=== PATIENT | male | born 1960 | race Caucasian/White ===

== ENCOUNTER → 2019-04-24 11:48 | Outpatient (CLI) | payer SELFPAY ==
[2019-04-24 16:05] LABS: ALB/GLOB Ratio 1.1 RATIO (0.9-2.4); AST(SGOT) 20 U/L (15-37); Alanine Aminotransfer ALT/SGPT 51 U/L (16-61); Albumin, Serum 3.9 g/dL (3.2-5.0); Alkaline Phosphatase 67 U/L (45-117); Anion Gap 7 (5-15); BUN 18 mg/dL (7-18); BUN/Creat Ratio 16.2 RATIO (10-20); Calcium,Total 8.6 mg/dL (8.5-10.1); Chloride 99 mmol/L (98-107); Creatinine, Serum 1.11 mg/dL (0.70-1.30); EST Glomerular Filtration Rate 73 mL/min (>60); Est Glom Filt Rate - Afr Amer 88 mL/min (>60); Globulin 3.4 g/dL (2.2-4.2); Glucose 439 mg/dL (74-106); Potassium 4.4 mmol/L (3.5-5.1); Protein, Total 7.3 g/dL (6.4-8.2); Sodium Level 132 mmol/L (136-145)
[2019-04-24 16:11] LABS: Hemoglobin A1c 12.6 % (4.2-6.3)
[2019-04-26 15:57] LABS: LDL, Direct 120295 89 mg/dL (0-99)
== END ==
PROVIDERS: PCP Internal Medicine; Visit Provider Family Medicine
DX: E11.9 Type 2 diabetes mellitus without complications (principal)
CPT/HCPCS: 36415; 80053; 83036; 83721

== ENCOUNTER → 2020-07-01 08:33 | Outpatient (CLI) | payer SELFPAY ==
[2020-07-01 10:15] LABS: Insulin 18.8 mU/L (2.6-37.6)
== END ==
PROVIDERS: PCP Family Medicine; Referring Provider Family Medicine; Visit Provider Family Medicine
DX: E11.65 Type 2 diabetes mellitus with hyperglycemia (principal)
CPT/HCPCS: 36415; 83525

== ENCOUNTER → 2020-08-15 17:22 | Outpatient (CLI) | payer SELFPAY | PROVIDERS: PCP Family Medicine; Referring Provider Family Medicine; Visit Provider Family Medicine | DX: L02.413 Cutaneous abscess of right upper limb (principal) | CPT/HCPCS: 87070; 87075; 87077; 87186; 87205 ==

== ENCOUNTER → 2021-12-24 | Outpatient (CLI) | payer SELFPAY | END | disposition home or self-care (01) | PROVIDERS: PCP Family Medicine; Visit Provider Family Medicine | DX: L02.414 Cutaneous abscess of left upper limb (principal) | CPT/HCPCS: 87070; 87077; 87186; 87205 ==

== ENCOUNTER → 2022-07-13 | Outpatient (CLI) | payer SELFPAY | END | disposition home or self-care (01) | PROVIDERS: PCP Family Medicine; Visit Provider Family Medicine | DX: L02.31 Cutaneous abscess of buttock (principal) | CPT/HCPCS: 87070; 87077; 87186; 87205 ==

== ENCOUNTER → 2024-10-02 | Outpatient (CLI) | payer MEDICARE, SELFPAY | END | disposition home or self-care (01) | LOC: LABSPEC 12:17 | PROVIDERS: PCP Family Medicine; Visit Provider Family Medicine | DX: L02.91 Cutaneous abscess, unspecified (principal) | CPT/HCPCS: 87070; 87075; 87077; 87186; 87205 ==

== ENCOUNTER 2024-10-29 09:00 | Outpatient (RCR) | payer MEDICARE, SELFPAY ==
[2024-10-22 10:06] VITALS: BP 140/96; PULSE 111; RESP 18; TEMP 36.6; BMI 34.9
--- NOTE | 2024-10-23 09:38 | WC ---
PHOTO 10/22/24 RIGHT SHOULDER
--- NOTE | 2024-10-23 11:08 | PCM.WC.HP ---
History of Present Illness Date of Service: 10/22/24 History of Wound: The patient is a 64-year-old male presenting with an abscess on the right upper back. Approximately 4 to 5 weeks ago, the patient noticed a small red pimple on the right upper back, which progressed into an abscess. The abscess was initially incised and drained by Dr. Lucero, but it continued to drain and required further intervention. The patient has a history of diabetes mellitus with a significantly elevated A1c of 12.6, indicating poor glycemic control. He has been prescribed a new injectable medication for diabetes management, which he plans to start soon. ROS: - Integumentary: Reports abscess on right upper back - Endocrine: Reports diabetes mellitus with elevated A1c Attestation: Documentation on this patient encounter was supported using ambient scribe technology/ voice AI technology. The patient consented to recording for the purpose of documenting the encounter. Provider reviewed content of the generated note prior to signature. [facility] Medical History Neuropathy Home Medications ?Medication ?Instructions ?Recorded ?Last Taken ?Type blood-glucose sensor (Dexcom G7 #3 ea 04/02/24 Unknown Rx Sensor device) glipizide 10 mg tablet 10 mg PO BID #60 tabs 04/02/24 Unknown Rx lisinopril 10 mg tablet 10 mg PO QDAY 04/02/24 Unknown History metformin 500 mg tablet,extended 1,000 mg (2 x 500 mg) PO BID #120 04/02/24 Unknown Rx release 24 hr tabs multivitamin with minerals-folic 1 tab PO ONCE 04/02/24 Unknown History acid 80 mcg chewable tablet (Centrum Adult 50 Plus) omega 9-gmz-rzs-fish oil 60 mg-90 1 cap PO QDAY 04/02/24 Unknown History mg-500 mg capsule (Fish Oil) pregabalin 300 mg capsule 300 mg PO BID 04/02/24 Unknown History simvastatin 20 mg tablet 20 mg PO QDAY 04/02/24 Unknown History sulfamethoxazole 800 1 tab PO Q12H 10/22/24 Unknown History mg-trimethoprim 160 mg tablet Allergy/AdvReac Type Severity Reaction Status Date / Time No Known Allergies Allergy Verified 04/02/24 14:02 Family History Father Diabetes Mother Myocardial infarction CVA (cerebral vascular accident) Surgical History H/O hernia repair History of appendectomy History of ear, nose, and throat (ENT) surgery Previous back surgery Social History Smoking Status: Never smoker alcohol intake: never substance use type: does not use what type of physical activity do you participate in: none Vital Signs Vital Signs Vital Signs: Weight Weight: 216 lb 3.175 oz Body Mass Index (BMI) 34.9 Physical Exam Narrative Right upper back with a swollen indurated with purulent drainage through her previous abscess I&D incision. There is definitely fluctuance and residual purulence with inflammatory rind/loculations Debridement Note Debridement Note Wound debrided: Right upper back abscess Laterality: Right Wound Grade/Stage: Abscess on the right upper back superficial to the muscle Type of Debridement: - (Incision and drainage with hemostat used to break up complex loculations) Anesthesia Used: - (20 cc of 1% lidocaine with 1-200,000 epinephrine) Depth: to muscle Percentage of wound debrided: 100 Instrument Used: #15 blade and - (Hemostat and scissors and forceps) Tissue Removed: Inflammatory rind from the abscess cavity as well as purulence Severity: Fat Layer Exposed Amount of bleeding with debridement: Moderate Bleeding Controlled with: Compression and gauze Patient tolerated procedure: Patient tolerated procedure well Debridement Free Text: 15 blade scalpel was used to make an incision longitudinally across the area of fluctuance over the 4 x 5 cm abscess cavity. The complex loculations were divided and excised as noted above. The wound was irrigated with copious amounts normal saline and Irrisept. It was packed with Irrisept soaked gauze. Post-Debridement Measurements and Additional Note: Post-Debridement Measurements/Treatment SUZI - Nurse 1 - General Ulcer Assessment Start: 10/22/24 10:02 Freq: Status: Active Protocol: SILAS Activity Type Activity Date Activity User E-sign Co-sign Detail Recorded Client Recorded Date Recorded By Document 10/22/24 10:06 THEO [id number] 10/22/24 10:18 DL 10/22/24 10:06 SUZI - Today's Visit Information Type of service Initial Visit Arrival Mode Ambulatory Transfer Assistance None Patient Identification Verified (Name & Yes ) Patient Requires Transmission-Based No Precautions Height and Weight Height 5 ft 6 in Weight 216 lb 3.175 oz Weight in Pounds 216.2 lbs Weight Measurement Method Estimated by Patient Body Mass Index (BMI) 34.9 BMI Classification Obese Vital Signs Temperature (97.8 F-99.1 F) 98 F Temperature Source Oral Pulse Rate (60-100) 111 H Pulse Location Monitor Respiratory Rate (12-18) 18 Respiratory rate source Observation Blood Pressure (90/60-120/80) 140/96 H Blood Pressure Mean 110 Source Monitor Pain Scale: 0-10 Numeric Is Patient Pain Free? 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 Required No Able to Read Yes Able to Write Yes Communication Tools None Right Hearing Abillity Normal Left Hearing Abillity Normal Visual Assistive Devices Glasses Teaching Assessment Preferences Verbal,Written Barriers to Learning None Readiness To Learn Good Willingness to Engage in Self Management Med Activies Readiness to Engage in Self Management Med Activities Anxiety Level Calm Cooperation Cooperative Perception Coherent Interest in Health Problem Asks Questions Education Importance Acknowledges Need Does Patient Smoke tobacco or other No substances Smoking Status Never smoker Is Patient Diabetic Yes Teaching: Wound Center Discharge Instructions -Person Taught Patient *Welcome to the Wound Center -Person Taught Patient WC - Nurse 1 - General Ulcer Measurement Start: 10/22/24 10:02 Freq: Status: Active Protocol: Activity Type Activity Date Activity User E-sign Co-sign Detail Recorded Client Recorded Date Recorded By Document 10/22/24 10:06 THEO [id number] 10/22/24 10:18 DL 10/22/24 10:06 Wound Center Nurse 1 #1 R [place]aim[place] -Current Size (cm) - Length 1.1 -Current Size (cm) - Width 0.5 -Current Size (cm) - Depth 2.2 -Total Square Cm 0.55 -Photo Taken Yes -Classification - Thickness Full Thickness without Exposed Support Structure -Exudate Amt Medium -Exudate Type Yellow/Green -Wound Margin Distinct, Outline Attached -Granulation Amt Medium (34-66%) -Granulation Quality [place] -Necrosis Amt Medium (34-66%) -Necrotic Tissue Type Adherent Slough -Structure Exposed N/A -Texture (Yari-wound Skin Appearance) Scarring -Color (Yari-wound Skin Appearance) Erythema -Temperature (Yari-wound Skin No Abnormality Appearance) (Pt Warm) -Tenderness on Palpation (Yari-wound No Skin Appearance) -Ulcer Cleansing Soap and Water -Foul Odor after Cleansing No -Anesthetic Used 4% Lidocaine Solution WC - Nurse 2 - General Ulcer CM Notes Start: 10/22/24 10:02 Freq: Status: Active Protocol: Activity Type Activity Date Activity User E-sign Co-sign Detail Recorded Client Recorded Date Recorded By Document 10/22/24 11:04 DS [id number] 10/22/24 11:05 DS 10/22/24 11:04 Wound Center Nurse 2 -Time 11:04 -Correct Patient Yes -Correct Side, Site, Position Yes -Correct Procedure Yes -Procedure Performed Yes -Type of Procedure Incision & Drainage -Clinical Debridement Muscle / Fascia -Tissue Removed Fascia -Post Debridement (cm) - Length 5.0 -Post Debridement (cm) - Width 5.0 -Total Square (Post) (cm) 25.00 -Area of Debridement (cm) - Length 5.0 -Area of Debridement (cm) - Width 5.0 -Total Square (Area) (cm) 25.00 -Wound/Ulcer Outcome Not Healed -Injectable Lidocaine w/ Epi (%) 1 -Injectable Lidocaine w/ Epi (mls) 20 -Bleeding Controlled with Pressure -Treatment Response Procedure Tolerated Well -Debridement - Muscle / Fascia, 1st No 20sq cm -I&D / Paring / Biopsy I&D abscess - multiple or complicated Pain Scale: 0-10 Numeric Is Patient Pain Free? Yes - Nurse 3 - General Ulcer D/C NN Start: 10/22/24 10:02 Freq: Status: Active Protocol: Activity Type Activity Date Activity User E-sign Co-sign Detail Recorded Client Recorded Date Recorded By Document 10/22/24 11:24 DL [id number] 10/22/24 11:26 DL 10/22/24 11:24 Wound Care Center Nurse 3 #1 R Moraima -Ulcer Cleansing irrigated and packed with Dakins -Primary Dressing Applied Hysept -Other Dressing Dakins packing -Primary Dressing Covered/Secured with Secured with Tape -Other Covering ABD -Hysept 1 Treatment Response Procedure Tolerated Well Pain Scale: 0-10 Numeric Is Patient Pain Free? Yes - Visit Discharge Discharge Condition Stable Ambulatory Status Ambulatory Transportation Private Auto Lab / Micro Data Micro: Microbiology 10/22/24 10:56 Wound - Shoulder Gram Stain - Final 10/22/24 10:56 Wound - Shoulder Wound Culture - Preliminary Staphylococcus aureus Charges/Coding Visit Charges Office Visits / Consults: 46796 OV L3 New 30min (With 25 modifier for the procedure) Procedures Integumentary 10xxx: 07499 Drainage of skin abscess Assessment/Plan Assessment/Plan (1) Abscess: CODE(S): L02.91 - Cutaneous abscess, unspecified (2) Diabetes: CODE(S): E11.9 - Type 2 diabetes mellitus without complications QUALIFIERS: Diabetes mellitus type: type 2 Diabetes mellitus oysterman insulin use: without half-way use Diabetes mellitus complication status: with hyperglycemia Qualified Code(s): E11.65 - Type 2 diabetes mellitus with hyperglycemia PLAN: Plan Assessment and Plan The patient is a 64-year-old male with a history of diabetes mellitus presenting with an abscess on the right upper back. The abscess has been persistent despite initial incision and drainage, likely due to the patient's poorly controlled diabetes, as indicated by an A1c that is severely elevated at 12.6. The plan includes further drainage and packing of the abscess to facilitate healing. (See operative note as noted above) 1. Abscess On Right Upper Back The plan involves numbing the area and performing an incision to drain the abscess further, followed by packing with gauze to promote healing. The patient will be instructed on wound care, including packing changes twice daily. 2. Diabetes Mellitus With Elevated A1c The patient is advised to start a new injectable medication to improve glycemic control, which is crucial for wound healing. Monitoring of blood glucose levels and adherence to diabetes management is emphasized. Follow-up in 1 week Continue Bactrim for now Follow-up wound cultures which were taken at the time of the I&D of the abscess cavity
[2024-10-29 08:53] VITALS: BP 122/90; PULSE 104; RESP 16; TEMP 36.4; BMI 34.9
--- NOTE | 2024-10-29 10:10 | PCM.WC.PN ---
History of Present Illness Date of Service: 10/29/24 History of Wound: HPI 22 October 2024: The patient is a 64-year-old male presenting with an abscess on the right upper back. Approximately 4 to 5 weeks ago, the patient noticed a small red pimple on the right upper back, which progressed into an abscess. The abscess was initially incised and drained by Dr. Lucero, but it continued to drain and required further intervention. The patient has a history of diabetes mellitus with a significantly elevated A1c of 12.6, indicating poor glycemic control. He has been prescribed a new injectable medication for diabetes management, which he plans to start soon. ROS: - Integumentary: Reports abscess on right upper back - Endocrine: Reports diabetes mellitus with elevated A1c Attestation: Documentation on this patient encounter was supported using ambient scribe technology/ voice AI technology. The patient consented to recording for the purpose of documenting the encounter. Provider reviewed content of the generated note prior to signature. Subjective Subjective CURRENT ENCOUNTER, 29 October 2024: Patient presents 1 week status post incision and drainage of right upper back abscess The patient is a 64-year-old male presenting with a wound infection in the context of diabetes mellitus. The patient has been experiencing elevated blood glucose levels, with a recent A1c of 13, necessitating the initiation of insulin therapy. The wound is described as deep, measuring approximately 4 x 4 x 3 cm, extending to the muscle and fascia, but without tunneling. The infection is currently controlled with antibiotics, specifically Bactrim, which was prescribed to address a culture-confirmed MSSA infection. The patient has been advised to maintain blood glucose control to facilitate wound healing. The wound care regimen includes regular irrigation and packing, with dressing changes recommended twice daily. ROS: - Endocrine: Reports elevated blood glucose levels, A1c of 13. - Integumentary: Reports deep wound, no tunneling, down to muscle and fascia. Attestation: Documentation on this patient encounter was supported using ambient scribe technology/ voice AI technology. The patient consented to recording for the purpose of documenting the encounter. Provider reviewed content of the generated note prior to signature. Objective Data Objective Data Vital Signs: Vital Signs Temp Pulse Resp BP 97.6 F L 104 H 16 122/90 H 10/29/24 08:53 10/29/24 08:53 10/29/24 08:53 10/29/24 08:53 Weight: 216 lb 3.175 oz Body Mass Index (BMI) 34.9 Lab / Micro Data Micro: Microbiology 10/22/24 10:56 Wound - Shoulder Gram Stain - Final 10/22/24 10:56 Wound - Shoulder Wound Culture - Final Staphylococcus aureus 10/22/24 10:56 Wound - Shoulder Anaerobic Culture - Final No anaerobic bacteria isolated. Charges/Coding Procedures Integumentary 111xxx-113xx: 14834 Hannah musc/fascia 20 sq cm/< Physical Exam Narrative - Integumentary: Deep wound without tunneling, down to muscle and fascia, measuring approximately 4 x 4 x 3 cm. No purulent drainage today but significant fibrinous exudate and necrotic abscess rind over the underlying muscle Const alert and oriented x3 Debridement Note Debridement Note Wound debrided: Right upper back wound Laterality: Right Wound Grade/Stage: Stage III down to underlying trapezius muscle Type of Debridement: Excisional debridement Anesthesia Used: 4% Lidocaine Solution Depth: to muscle (Trapezius muscle right upper back) Percentage of wound debrided: 100 Instrument Used: 7mm curette (Used for sharp excision of the wound bed) Tissue Removed: Necrotic fibrinous exudate and abscess rind on trapezius muscle at the base Severity: Necrosis of Muscle Amount of bleeding with debridement: Moderate Bleeding Controlled with: Compression and gauze Patient tolerated procedure: Patient tolerated procedure well Debridement Free Text: Wound was packed at the completion of the case. Post-Debridement Measurements and Additional Note: Post-Debridement Measurements/Treatment WC - Nurse 1 - General Ulcer Assessment Start: 10/22/24 10:02 Freq: Status: Active Protocol: SILAS Activity Type Activity Date Activity User E-sign Co-sign Detail Recorded Client Recorded Date Recorded By Document 10/22/24 10:06 THEO [id number] 10/22/24 10:18 DL Document 10/29/24 08:53 SEB [id number] 10/29/24 09:02 SEB 10/22/24 10/29/24 10:06 08:53 - Today's Visit Information Type of service Initial Visit Follow-up Visit (Physician/GAUGE CONTROLLER ) Arrival Mode Ambulatory Ambulatory Transfer Assistance None Patient Identification Verified (Name & Yes Yes ) Patient Requires Transmission-Based No No Precautions Height and Weight Height 5 ft 6 in Weight 216 lb 3.175 oz Weight in Pounds 216.2 lbs Weight Measurement Method Estimated by Patient Body Mass Index (BMI) 34.9 34.9 BMI Classification Obese Obese Vital Signs Temperature (97.8 F-99.1 F) 98 F 97.6 F L Temperature Source Oral Temporal Pulse Rate (60-100) 111 H 104 H Pulse Location Monitor Monitor Respiratory Rate (12-18) 18 16 Respiratory rate source Observation Observation Blood Pressure (90/60-120/80) 140/96 H 122/90 H Blood Pressure Mean (mm Hg) 110 100 Source Monitor Monitor Position Semi-Fowlers Blood Pressure Location Left Arm History Since Last Visit- (Skip if this is Patient's initial visit) Have you changed medications since your Yes last visit? Any new allergies or adverse reactions No Had a fall/change in ADL's that may No increase risk of falls Signs or symptoms of abuse and/or No neglect since last visit Have you been in the hospital since your No last visit? Has dressing in place as prescribed Yes Has compression in place as prescribed N/A Has offloadiing in place as prescribed N/A Experienced any changes in pain level or No management Left Footwear Regular Shoe Right Footwear Regular Shoe Pain Scale: 0-10 Numeric Is Patient Pain Free? Yes Yes Communication Assessment Preferred language [place]ian Branch Chief Required No Able to Read Yes Able to Write Yes Communication Tools None Right Hearing Abillity Normal Left Hearing Abillity Normal Visual Assistive Devices Glasses Teaching Assessment Preferences Verbal,Written Barriers to Learning None Readiness To Learn Good Willingness to Engage in Self Management Med Activies Readiness to Engage in Self Management Med Activities Anxiety Level Calm Cooperation Cooperative Perception Coherent Interest in Health Problem Asks Questions Education Importance Acknowledges Need Does Patient Smoke tobacco or other No substances Smoking Status Never smoker Is Patient Diabetic Yes Teaching: Wound Center Discharge Instructions -Person Taught Patient *Welcome to the Wound Center -Person Taught Patient WC - Nurse 1 - General Ulcer Measurement Start: 10/22/24 10:02 Freq: Status: Active Protocol: Activity Type Activity Date Activity User E-sign Co-sign Detail Recorded Client Recorded Date Recorded By Document 10/22/24 10:06 THEO [id number] 10/22/24 10:18 DL Document 10/29/24 08:53 SEB [id number] 10/29/24 09:02 SEB 10/22/24 10/29/24 10:06 08:53 Wound Center Nurse 1 #1 R [place] -Combined with other wound No -Current Size (cm) - Length 1.1 4 -Current Size (cm) - Width 0.5 1.1 -Current Size (cm) - Depth 2.2 1.7 -Total Square Cm 0.55 4.4 -Photo Taken Yes Yes -Epithelialization Small 1-33% -Tunneling No -Undermining/Tunneling No -Circular Undermining No -Classification - Thickness Full Thickness without Exposed Support Structure -Exudate Amt Medium Large -Exudate Type Yellow/Green Serosanguineous -Wound Margin Distinct, Thickened Outline Attached -Granulation Amt Medium (34-66%) Medium (34-66%) -Granulation Quality [place] -Slough/Fibrin Yes -Necrosis Amt Medium (34-66%) Small (1-33%) -Necrotic Tissue Type Adherent Slough Adherent Slough -Structure Exposed N/A N/A -Texture (Yari-wound Skin Appearance) Scarring Rash -Moisture (Yari-wound Skin Appearance) Assessed,Dry/ Scaly -Color (Yari-wound Skin Appearance) Erythema Assessed -Temperature (Yari-wound Skin No Abnormality No Abnormality Appearance) (Pt Warm) (Pt Warm) -Tenderness on Palpation (Yari-wound No No Skin Appearance) -Ulcer Cleansing Soap and Water Soap and Water -Foul Odor after Cleansing No No -Anesthetic Used 4% Lidocaine 4% Lidocaine Solution Solution Lower Limb Edema Present NA WC - Nurse 2 - General Ulcer CM Notes Start: 10/22/24 10:02 Freq: Status: Active Protocol: Activity Type Activity Date Activity User E-sign Co-sign Detail Recorded Client Recorded Date Recorded By Document 10/22/24 11:04 DHAVAL [id number] 10/22/24 11:05 DS Document 10/29/24 09:14 [id number] 10/29/24 09:20 10/22/24 10/29/24 11:04 09:14 Wound Center Nurse 2 #1 Astrid Valera -Time 11:04 09:16 -Correct Patient Yes Yes -Correct Side, Site, Position Yes Yes -Correct Procedure Yes Yes -Procedure Performed Yes Yes -Type of Procedure Incision & Debridement Drainage -Clinical Debridement Muscle / Fascia Muscle / Fascia -Tissue Removed Fascia Muscle,Fascia -Post Debridement (cm) - Length 5.0 4 -Post Debridement (cm) - Width 5.0 4 -Post Debridement (cm) - Depth 3 -Total Square (Post) (cm) 25.00 16 -Area of Debridement (cm) - Length 5.0 4 -Area of Debridement (cm) - Width 5.0 4 -Total Square (Area) (cm) 25.00 16 -Tunneling No -Undermining/Tunneling No -Circular Undermining No -Wound/Ulcer Outcome Not Healed Not Healed -Ulcer Cleansing Rinsed/ Irrigated with Saline -Foul Odor after Cleansing No -Bioengineered Tissue No -Injectable Lidocaine w/ Epi (%) 1 -Injectable Lidocaine w/ Epi (mls) 20 -Bleeding Controlled with Pressure Pressure -Treatment Response Procedure Procedure Tolerated Well Tolerated Well -Offloading No -Debridement - Muscle / Fascia, 1st No Yes 20sq cm -I&D / Paring / Biopsy I&D abscess - multiple or complicated Pain Scale: 0-10 Numeric Is Patient Pain Free? Yes Yes - Nurse 3 - General Ulcer D/C NN Start: 10/22/24 10:02 Freq: Status: Active Protocol: Activity Type Activity Date Activity User E-sign Co-sign Detail Recorded Client Recorded Date Recorded By Document 10/22/24 11:24 DL [id number] 10/22/24 11:26 DL Document 10/29/24 09:27 [id number] 10/29/24 09:28 10/22/24 10/29/24 11:24 09:27 Wound Care Center Nurse 3 #1 R Moraima -Ulcer Cleansing irrigated Rinsed/ and packed with Irrigated with Dakins Saline -Foul Odor after Cleansing No -Primary Dressing Applied Hysept -Other Dressing Dakins packing hydrogel -Primary Dressing Covered/Secured with Secured with Dry Gauze, Tape Secured with Tape -Other Covering ABD -Hysept 1 Treatment Response Procedure Tolerated Well Pain Scale: 0-10 Numeric Is Patient Pain Free? Yes Yes - Visit Discharge Discharge Condition Stable Stable Ambulatory Status Ambulatory Ambulatory Transportation Private Auto Private Auto Medication Reconcilliation completed & Yes provided to patient/care provider Clinical Summary of Care Provided Yes Assessment/Plan Assessment/Plan (1) Wound, open, back: CODE(S): S21.209A - Unspecified open wound of unspecified back wall of thorax without penetration into thoracic cavity, initial encounter (2) Diabetes: CODE(S): E11.9 - Type 2 diabetes mellitus without complications QUALIFIERS: Diabetes mellitus type: type 2 Diabetes mellitus long term care phlebotomist insulin use: without long term care phlebotomist use Diabetes mellitus complication status: with hyperglycemia Qualified Code(s): E11.65 - Type 2 diabetes mellitus with hyperglycemia (3) Obesity: CODE(S): E66.9 - Obesity, unspecified QUALIFIERS: Obesity type: due to excess calories Obesity classification: adult class 1 (BMI 30 - 34.9) Serious obesity comorbidity presence: with serious comorbidity Body mass index: BMI 34.0-34.9 Qualified Code(s): E66.811 - Obesity, class 1; E66.09 - Other obesity due to excess calories; Z68.34 - Body mass index [BMI] 34.0-34.9, adult (4) Abscess: CODE(S): L02.91 - Cutaneous abscess, unspecified PLAN: Plan Assessment and Plan The patient is a 64-year-old male with a history of diabetes mellitus presenting a deep wound down to muscle measuring approximately 4 x 4 x 3 cm, 1 week out from abscess incision and drainage. The infection is currently controlled with Bactrim and wound packing, addressing a culture-confirmed MSSA infection. The patient's diabetes management is crucial for wound healing, with an A1c of 13 necessitating insulin therapy. The wound care plan includes regular irrigation and packing, with dressing changes recommended twice daily. 1. Diabetes Mellitus The patient's diabetes management is critical for wound healing, with an A1c of 13 necessitating insulin therapy to achieve better glycemic control. 2. Wound Infection The wound infection is being managed with Bactrim, targeting a culture-confirmed MSSA infection. The wound care plan includes regular irrigation and packing, with dressing changes recommended twice daily to promote healing. Follow-up in 2 weeks with me Infection appears controlled and the wound is open and healing - Continue taking Bactrim as prescribed to manage the infection (will finish 1 week course) - Maintain blood glucose control with insulin therapy to aid wound healing. - Change wound dressing twice daily to prevent infection and promote healing. - Schedule a follow-up appointment in two weeks or sooner if the condition worsens.
--- NOTE | 2024-10-30 09:27 | WC ---
PHOTO-RIGHT SHOULDER 10/29/24
== END 2024-11-01 23:59 | disposition home or self-care (01) ==
LOC: WC 09:00
PROVIDERS: PCP Family Medicine; Referring Provider Family Medicine; Visit Provider Surgery Plastic and Reconstructive Surgery
DX: L02.212 Cutaneous abscess of back [any part, except buttock and flank] (principal); E11.65 Type 2 diabetes mellitus with hyperglycemia; E11.42 Type 2 diabetes mellitus with diabetic polyneuropathy; Z79.84 Long term (current) use of oral hypoglycemic drugs; B95.61 Methicillin susceptible Staphylococcus aureus infection as the cause of diseases classified elsewhere; E66.811 Obesity, class 1; Z68.34 Body mass index [BMI] 34.0-34.9, adult
CPT/HCPCS: 10061; 11043; 87070; 87075; 87077; 87186; 87205; 99213; G0463

== ENCOUNTER 2024-11-26 10:15 | Outpatient (RCR) | payer MEDICARE, SELFPAY ==
[2024-11-12 09:57] VITALS: BP 159/86; PULSE 104; RESP 18; TEMP 36.2
--- NOTE | 2024-11-12 13:25 | PN.PCM_ITS ---
History of Present Illness Date of Service: 10/29/24 History of Wound: HPI 22 October 2024: The patient is a 64-year-old male presenting with an abscess on the right upper back. Approximately 4 to 5 weeks ago, the patient noticed a small red pimple on the right upper back, which progressed into an abscess. The abscess was initi ally incised and drained by Dr. Lucero, but it continued to drain and required further intervention. The patient has a history of diabetes mellitus with a significantly elevated A1c of 12.6, indicating poor glycemic control. He has been prescribed a new injectable medication for diabetes management, which he plans to start soon. ROS: - Integumentary: Reports abscess on right upper back - Endocrine: Reports diabetes mellitus with elevated A1c Attestation: Documentation on this patient encounter was supported using ambient scribe technology/ voice AI technology. The patient consented to recording for the purpose of documenting the encounter. Provider reviewed content of the generated note prior to signature. Subjective Subjective 29 October 2024: Patient presents 1 week status post incision and drainage of right upper back abscess The patient is a 64-year-old male presenting with a wound infection in the context of diabetes mellitus. The patient has been experiencing elevated blood glucose levels, with a recent A1c of 13, necessitating the initiation of insulin therapy. The wound is described as deep, measuring approximately 4 x 4 x 3 cm, extending to the muscle and fascia, but without tunneling. The infection is currently controlled with antibiotics, specifically Bactrim, which was prescribed to address a culture-confirmed MSSA infection. The patient has been advised to maintain blood glucose control to facilitate wound healing. The wound care regimen includes regular irrigation and packing, with dressing changes recommended twice daily. ROS: - Endocrine: Reports elevated blood glucose levels, A1c of 13. - Integumentary: Reports deep wound, no tunneling, down to muscle and fascia. Attestation: Documentation on this patient encounter was supported using ambient scribe technology/ voice AI technology. The patient consented to recording for the purpose of documenting the encounter. Provider reviewed content of the generated note prior to signature. CURRENT ENCOUNTER, 12 Nov 2024: Doing well overall. Finished his antibiotics. Doing well with wound care. Objective Data Objective Data Vital Signs: Vital Signs Temp Pulse Resp BP 97.2 F L 104 H 18 159/86 H 11/12/24 09:57 11/12/24 09:57 11/12/24 09:57 11/12/24 09:57 Charges/Coding Procedures Integumentary 111xxx-113xx: [id number] Hannah musc/fascia 20 sq cm/< Physical Exam Narrative - Integumentary: Deep wound without tunneling, down to muscle and fascia, measuring approximately ~3 x 1 x 1 cm. No purulent drainage today but significant fibrinous exudate and necrotic abscess rind over the underlying muscle. Much smaller and improving. No purulence Const alert and oriented x3 Debridement Note Debridement Note Wound debrided: Right upper back wound Laterality: Right Wound Grade/Stage: 3, down to muscle Type of Debridement: Excisional debridement Anesthesia Used: 4% Lidocaine Solution Depth: to muscle Percentage of wound debrided: 100 Tissue Removed: Necrotic fibrinous exudate at the base of the wound over the muscle Severity: Necrosis of Muscle Amount of bleeding with debridement: Moderate Bleeding Controlled with: Compression and gauze Patient tolerated procedure: Patient tolerated procedure well Post-Debridement Measurements and Additional Note: Post-Debridement Measurements/Treatment - Nurse 1 - General Ulcer Assessment Start: 11/12/24 09:57 Freq: Status: Active Protocol: SUZI.LOWTRISHAT Activity Type Activity Date Activity User E-sign Co-sign Detail Recorded Client Recorded Date Recorded By Document 11/12/24 09:57 [id number] 11/12/24 10:06 11/12/24 09:57 - Today's Visit Information Type of service 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 Any new allergies or adverse reactions No Had a fall/change in ADL's that may No increase risk of falls Signs or symptoms of abuse and/or No neglect since last visit Have you been in the hospital since your No last visit? Has dressing in place as prescribed Yes Has compression in place as prescribed N/A Has offloadiing in place as prescribed N/A Experienced any changes in pain level or No management Left Footwear Regular Shoe Right Footwear Regular Shoe Pain Scale: 0-10 Numeric Is Patient Pain Free? Yes - Nurse 1 - General Ulcer Measurement Start: 11/12/24 09:57 Freq: Status: Active Protocol: Activity Type Activity Date Activity User E-sign Co-sign Detail Recorded Client Recorded Date Recorded By Document 11/12/24 09:57 SEB [id number] 11/12/24 10:06 11/12/24 09:57 Wound Center Nurse 1 #1 Astrid Valera -Combined with other wound No -Current Size (cm) - Length 3.4 -Current Size (cm) - Width 1.1 -Current Size (cm) - Depth 1.9 -Total Square Cm 3.74 -Photo Taken Yes -Epithelialization Medium 34-66% -Tunneling No -Undermining/Tunneling No -Circular Undermining No -Exudate Amt Medium -Exudate Type Serosanguineous -Wound Margin Flat & Intact -Granulation Amt Large (67-100%) -Granulation Quality Red -Slough/Fibrin Yes -Necrosis Amt Small (1-33%) -Structure Exposed Muscle -Texture (Yari-wound Skin Appearance) Assessed -Moisture (Yari-wound Skin Appearance) Dry/Scaly -Color (Yari-wound Skin Appearance) Assessed -Temperature (Yari-wound Skin No Abnormality Appearance) (Pt Warm) -Tenderness on Palpation (Yari-wound No Skin Appearance) -Ulcer Cleansing Soap and Water -Foul Odor after Cleansing No -Anesthetic Used 4% Lidocaine Solution Lower Limb Edema Present NA - Nurse 2 - General Ulcer CM Notes Start: 11/12/24 09:57 Freq: Status: Active Protocol: Activity Type Activity Date Activity User E-sign Co-sign Detail Recorded Client Recorded Date Recorded By Document 11/12/24 10:31 SEB [id number] 11/12/24 10:34 11/12/24 10:31 Wound Center Nurse 2 #1 Astrid Valera -Time 10:31 -Correct Patient Yes -Correct Side, Site, Position Yes -Correct Procedure Yes -Procedure Performed Yes -Type of Procedure Debridement -Clinical Debridement Muscle / Fascia -Tissue Removed Muscle -Post Debridement (cm) - Length 4 -Post Debridement (cm) - Width 1 -Post Debridement (cm) - Depth 1.9 -Total Square (Post) (cm) 4 -Area of Debridement (cm) - Length 4 -Area of Debridement (cm) - Width 1 -Total Square (Area) (cm) 4 -Tunneling No -Undermining/Tunneling No -Circular Undermining No -Wound/Ulcer Outcome Not Healed -Ulcer Cleansing Rinsed/ Irrigated with Saline -Foul Odor after Cleansing No -Bioengineered Tissue No -Bleeding Controlled with Pressure -Treatment Response Procedure Tolerated Well -Offloading No -Debridement - Muscle / Fascia, 1st Yes 20sq cm Pain Scale: 0-10 Numeric Is Patient Pain Free? Yes WC - Nurse 3 - General Ulcer D/C NN Start: 11/12/24 09:57 Freq: Status: Active Protocol: Activity Type Activity Date Activity User E-sign Co-sign Detail Recorded Client Recorded Date Recorded By Document 11/12/24 10:52 ML [id number] 11/12/24 10:52 ML 11/12/24 10:52 Wound Care Center Nurse 3 #1 R Moraima -Ulcer Cleansing Rinsed/ Irrigated with Saline -Other Dressing dakins soaked guaze -Primary Dressing Covered/Secured with Dry Gauze, Secured with Tape Pain Scale: 0-10 Numeric Is Patient Pain Free? Yes Assessment/Plan Assessment/Plan (1) Wound, open, back: CODE(S): S21.209A - Unspecified open wound of unspecified back wall of thorax without penetration into thoracic cavity, initial encounter PLAN: Continue twice daily wet-to-dry dressing No signs of active infection, so agree with no antibiotics Continue wound care and tight blood sugar control (seeing PCP again later this week for f/u for DM) F/u with me in 2 weeks
--- NOTE | 2024-11-13 09:25 | WC ---
PHOTO-RIGHT SHOULDER 11/12/24
[2024-11-26 09:44] VITALS: BP 132/92; PULSE 84; RESP 16; TEMP 36.3
--- NOTE | 2024-11-26 10:15 | PN.PCM_ITS ---
History of Present Illness Date of Service: 11/26/24 History of Wound: HPI 22 October 2024: The patient is a 64-year-old male presenting with an abscess on the right upper back. Approximately 4 to 5 weeks ago, the patient noticed a small red pimple on the right upper back, which progressed into an abscess. The abscess was initi ally incised and drained by Dr. Lucero, but it continued to drain and required further intervention. The patient has a history of diabetes mellitus with a significantly elevated A1c of 12.6, indicating poor glycemic control. He has been prescribed a new injectable medication for diabetes management, which he plans to start soon. ROS: - Integumentary: Reports abscess on right upper back - Endocrine: Reports diabetes mellitus with elevated A1c Attestation: Documentation on this patient encounter was supported using ambient scribe technology/ voice AI technology. The patient consented to recording for the purpose of documenting the encounter. Provider reviewed content of the generated note prior to signature. Subjective Subjective 29 October 2024: Patient presents 1 week status post incision and drainage of right upper back abscess The patient is a 64-year-old male presenting with a wound infection in the context of diabetes mellitus. The patient has been experiencing elevated blood glucose levels, with a recent A1c of 13, necessitating the initiation of insulin therapy. The wound is described as deep, measuring approximately 4 x 4 x 3 cm, extending to the muscle and fascia, but without tunneling. The infection is currently controlled with antibiotics, specifically Bactrim, which was prescribed to address a culture-confirmed MSSA infection. The patient has been advised to maintain blood glucose control to facilitate wound healing. The wound care regimen includes regular irrigation and packing, with dressing changes recommended twice daily. ROS: - Endocrine: Reports elevated blood glucose levels, A1c of 13. - Integumentary: Reports deep wound, no tunneling, down to muscle and fascia. Attestation: Documentation on this patient encounter was supported using ambient scribe technology/ voice AI technology. The patient consented to recording for the purpose of documenting the encounter. Provider reviewed content of the generated note prior to signature. 12 Nov 2024: Doing well overall. Finished his antibiotics. Doing well with wound care. CURRENT ENCOUNTER, 26 November 2024: Doing well overall. Has not been checking blood sugar though. Reports good dressing changes. Objective Data Objective Data Vital Signs: Vital Signs Temp Pulse Resp BP 97.3 F L 84 16 132/92 H 11/26/24 09:44 11/26/24 09:44 11/26/24 09:44 11/26/24 09:44 Charges/Coding Procedures Integumentary 111xxx-113xx: [id number] Hannah subq tissue 20 sq cm/< Physical Exam Narrative - Integumentary: Deep wound without tunneling, down to SUBQ now, measuring approximately 3 x 1 x 1 cm. No tunneling today. Much smaller and improving. No purulence Const alert and oriented x3 Debridement Note Debridement Note Wound debrided: Stage 3 right upper back wound after abscess I&D Laterality: Right Type of Debridement: Excisional debridement Anesthesia Used: 4% Lidocaine Solution Depth: in the subcutaneous layer Percentage of wound debrided: 100 Instrument Used: 7mm curette Tissue Removed: Fibrinous exudate and biofilm at the base of the wound Severity: Fat Layer Exposed Amount of bleeding with debridement: Mild Bleeding Controlled with: Compression and gauze Patient tolerated procedure: Patient tolerated procedure well Post-Debridement Measurements and Additional Note: Post-Debridement Measurements/Treatment - Nurse 1 - General Ulcer Assessment Start: 11/12/24 09:57 Freq: Status: Active Protocol: SILAS Activity Type Activity Date Activity User E-sign Co-sign Detail Recorded Client Recorded Date Recorded By Document 11/12/24 09:57 [id number] 11/12/24 10:06 Document 11/26/24 09:44 DL [id number] 11/26/24 09:53 DL 11/12/24 11/26/24 09:57 09:44 - Today's Visit Information Type of service Follow-up Visit 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 ) ) Arrival Mode Ambulatory Ambulatory Transfer Assistance Manual Patient Identification Verified (Name & Yes Yes ) Patient Requires Transmission-Based No No Precautions Vital Signs Temperature (97.8 F-99.1 F) 97.2 F L 97.3 F L Temperature Source Temporal Oral Pulse Rate (60-100) 104 H 84 Pulse Location Monitor Monitor Respiratory Rate (12-18) 18 16 Respiratory rate source Observation Observation Blood Pressure (90/60-120/80) 159/86 H 132/92 H Blood Pressure Mean (mm Hg) 110 105 Source Monitor Monitor Position Semi-Fowlers Blood Pressure Location Right Arm History Since Last Visit- (Skip if this is Patient's initial visit) Have you changed medications since your Yes No last visit? Any new allergies or adverse reactions No No Had a fall/change in ADL's that may No No increase risk of falls Signs or symptoms of abuse and/or No No neglect since last visit Have you been in the hospital since your No No last visit? Has dressing in place as prescribed Yes Yes Has compression in place as prescribed N/A N/A Has offloadiing in place as prescribed N/A N/A Experienced any changes in pain level or No No management Left Footwear Regular Shoe Right Footwear Regular Shoe Pain Scale: 0-10 Numeric Is Patient Pain Free? Yes Yes WC - Nurse 1 - General Ulcer Measurement Start: 11/12/24 09:57 Freq: Status: Active Protocol: Activity Type Activity Date Activity User E-sign Co-sign Detail Recorded Client Recorded Date Recorded By Document 11/12/24 09:57 [id number] [id number] 11/12/24 10:06 JF Document 11/26/24 09:44 DL [id number] 11/26/24 09:53 DL 11/12/24 11/26/24 09:57 09:44 Wound Center Nurse 1 #1 R Soulder -Combined with other wound No -Current Size (cm) - Length 3.4 2.6 -Current Size (cm) - Width 1.1 0.7 -Current Size (cm) - Depth 1.9 1.3 -Total Square Cm 3.74 1.82 -Photo Taken Yes Yes -Epithelialization Medium 34-66% -Tunneling No -Undermining/Tunneling No -Circular Undermining No -Exudate Amt Medium Medium -Exudate Type Serosanguineous Serosanguineous -Wound Margin Flat & Intact Distinct, Outline Attached -Granulation Amt Large (67-100%) Large (67-100%) -Granulation Quality Red -Slough/Fibrin Yes No -Necrosis Amt Small (1-33%) None Present (0 %) -Structure Exposed Muscle N/A -Texture (Yari-wound Skin Appearance) Assessed Scarring -Moisture (Yari-wound Skin Appearance) Dry/Scaly Assessed -Color (Yari-wound Skin Appearance) Assessed No Abnormality -Temperature (Yari-wound Skin No Abnormality No Abnormality Appearance) (Pt Warm) (Pt Warm) -Tenderness on Palpation (Yari-wound No Skin Appearance) -Ulcer Cleansing Soap and Water Rinsed/ Irrigated with Saline -Foul Odor after Cleansing No No -Anesthetic Used 4% Lidocaine Solution Lower Limb Edema Present NA - Nurse 2 - General Ulcer CM Notes Start: 11/12/24 09:57 Freq: Status: Active Protocol: Activity Type Activity Date Activity User E-sign Co-sign Detail Recorded Client Recorded Date Recorded By Document 11/12/24 10:31 [id number] 11/12/24 10:34 Document 11/26/24 10:10 [id number] 11/26/24 10:14 JF 11/12/24 11/26/24 10:31 10:10 Wound Center Nurse 2 #1 R Moraima -Time 10:31 10:13 -Correct Patient Yes Yes -Correct Side, Site, Position Yes Yes -Correct Procedure Yes Yes -Procedure Performed Yes Yes -Type of Procedure Debridement Debridement -Clinical Debridement Muscle / Fascia Subcutaneous -Tissue Removed Muscle Subcutaneous -Post Debridement (cm) - Length 4 3 -Post Debridement (cm) - Width 1 1 -Post Debridement (cm) - Depth 1.9 1.4 -Total Square (Post) (cm) 4 3 -Area of Debridement (cm) - Length 4 3 -Area of Debridement (cm) - Width 1 1 -Total Square (Area) (cm) 4 3 -Tunneling No No -Undermining/Tunneling No No -Circular Undermining No No -Wound/Ulcer Outcome Not Healed Not Healed -Ulcer Cleansing Rinsed/ Rinsed/ Irrigated with Irrigated with Saline Saline -Foul Odor after Cleansing No No -Bioengineered Tissue No No -Bleeding Controlled with Pressure Pressure -Treatment Response Procedure Procedure Tolerated Well Tolerated Well -Offloading No No -Debridement - Subq, 1st 20sq cm Yes -Debridement - Muscle / Fascia, 1st Yes 20sq cm Pain Scale: 0-10 Numeric Is Patient Pain Free? Yes Yes - Nurse 3 - General Ulcer D/C NN Start: 11/12/24 09:57 Freq: Status: Active Protocol: Activity Type Activity Date Activity User E-sign Co-sign Detail Recorded Client Recorded Date Recorded By Document 11/12/24 10:52 ML [id number] 11/12/24 10:52 ML 11/12/24 10:52 Wound Care Center Nurse 3 #1 R Moraima -Ulcer Cleansing Rinsed/ Irrigated with Saline -Other Dressing dakins soaked guaze -Primary Dressing Covered/Secured with Dry Gauze, Secured with Tape Pain Scale: 0-10 Numeric Is Patient Pain Free? Yes Assessment/Plan Assessment/Plan (1) Wound, open, back: CODE(S): S21.209A - Unspecified open wound of unspecified back wall of thorax without penetration into thoracic cavity, initial encounter PLAN: Discontinued twice daily wet-to-dry dressing No signs of active infection, so agree with no antibiotics Aqaucel Ag dressing changes daily with 2 week f/u in the [facility] (discussed once piece in, one peice out) Continue wound care and tight blood sugar control
--- NOTE | 2024-11-27 10:32 | WC ---
PHOTO-BACK 11/26/24
== END 2024-12-02 23:59 | disposition home or self-care (01) ==
LOC: WC 10:15
PROVIDERS: PCP Family Medicine; Referring Provider Family Medicine; Visit Provider Surgery Plastic and Reconstructive Surgery
DX: L02.212 Cutaneous abscess of back [any part, except buttock and flank] (principal); E11.65 Type 2 diabetes mellitus with hyperglycemia; E11.628 Type 2 diabetes mellitus with other skin complications; B95.61 Methicillin susceptible Staphylococcus aureus infection as the cause of diseases classified elsewhere
CPT/HCPCS: 11042; 11043

== ENCOUNTER 2024-12-10 09:22 | Outpatient (RCR) | payer MEDICARE, SELFPAY ==
[2024-12-10 10:30] VITALS: BP 130/81; PULSE 96; RESP 14; TEMP 36.6
--- NOTE | 2024-12-11 10:01 | PCM.WC.PN ---
History of Present Illness Date of Service: 12/10/24 History of Wound: HPI 22 October 2024: The patient is a 64-year-old male presenting with an abscess on the right upper back. Approximately 4 to 5 weeks ago, the patient noticed a small red pimple on the right upper back, which progressed into an abscess. The abscess was initially incised and drained by Dr. Lucero, but it continued to drain and required further intervention. The patient has a history of diabetes mellitus with a significantly elevated A1c of 12.6, indicating poor glycemic control. He has been prescribed a new injectable medication for diabetes management, which he plans to start soon. ROS: - Integumentary: Reports abscess on right upper back - Endocrine: Reports diabetes mellitus with elevated A1c Attestation: Documentation on this patient encounter was supported using ambient scribe technology/ voice AI technology. The patient consented to recording for the purpose of documenting the encounter. Provider reviewed content of the generated note prior to signature. Subjective Subjective 29 October 2024: Patient presents 1 week status post incision and drainage of right upper back abscess The patient is a 64-year-old male presenting with a wound infection in the context of diabetes mellitus. The patient has been experiencing elevated blood glucose levels, with a recent A1c of 13, necessitating the initiation of insulin therapy. The wound is described as deep, measuring approximately 4 x 4 x 3 cm, extending to the muscle and fascia, but without tunneling. The infection is currently controlled with antibiotics, specifically Bactrim, which was prescribed to address a culture-confirmed MSSA infection. The patient has been advised to maintain blood glucose control to facilitate wound healing. The wound care regimen includes regular irrigation and packing, with dressing changes recommended twice daily. ROS: - Endocrine: Reports elevated blood glucose levels, A1c of 13. - Integumentary: Reports deep wound, no tunneling, down to muscle and fascia. Attestation: Documentation on this patient encounter was supported using ambient scribe technology/ voice AI technology. The patient consented to recording for the purpose of documenting the encounter. Provider reviewed content of the generated note prior to signature. 12 Nov 2024: Doing well overall. Finished his antibiotics. Doing well with wound care. 26 November 2024: Doing well overall. Has not been checking blood sugar though. Reports good dressing changes. CURRENT ENCOUNTER, 10 Dec 2024: Patient doing well overall and is making some improvements with his wound. The wound is now 3 x 0.7 cm only 1 cm deep Objective Data Objective Data Vital Signs: Vital Signs Temp Pulse Resp BP 97.9 F 96 14 130/81 H 12/10/24 10:30 12/10/24 10:30 12/10/24 10:30 12/10/24 10:30 Charges/Coding Procedures Integumentary 111xxx-113xx: [id number] Hannah subq tissue 20 sq cm/< Physical Exam Narrative - Integumentary: More superficial wound and without tunneling, down to SUBQ now, measuring approximately 3 x 0.7 cm x 1 cm. Healthy granulation tissue at the base , no purulence Const alert and oriented x3 Debridement Note Debridement Note Wound debrided: Right upper back wound Laterality: Right Wound Grade/Stage: Stage III Type of Debridement: Excisional debridement Anesthesia Used: 4% Lidocaine Solution Depth: in the subcutaneous layer Percentage of wound debrided: 100 Instrument Used: 7mm curette Tissue Removed: Fibrinous exudate Severity: Fat Layer Exposed Amount of bleeding with debridement: Mild Bleeding Controlled with: Pressure Patient tolerated procedure: Patient tolerated procedure well Post-Debridement Measurements and Additional Note: Post-Debridement Measurements/Treatment - Nurse 1 - General Ulcer Assessment Start: 12/10/24 10:30 Freq: Status: Active Protocol: SILAS Activity Type Activity Date Activity User E-sign Co-sign Detail Recorded Client Recorded Date Recorded By Document 12/10/24 10:30 ML [id number] 12/10/24 10:37 ML 12/10/24 10:30 - Today's Visit Information 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 service 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 Any new allergies or adverse reactions No Had a fall/change in ADL's that may No increase risk of falls Signs or symptoms of abuse and/or No neglect since last visit Have you been in the hospital since your No last visit? Has dressing in place as prescribed Yes Has compression in place as prescribed N/A Has offloadiing in place as prescribed N/A Experienced any changes in pain level or No management Pain Scale: 0-10 Numeric Is Patient Pain Free? Yes - Nurse 1 - General Ulcer Measurement Start: 12/10/24 10:30 Freq: Status: Active Protocol: Activity Type Activity Date Activity User E-sign Co-sign Detail Recorded Client Recorded Date Recorded By Document 12/10/24 10:30 [id number] 12/10/24 10:37 ML 12/10/24 10:30 Wound Center Nurse 1 #1 R Soujner -Current Size (cm) - Length 2 -Current Size (cm) - Width 0.5 -Current Size (cm) - Depth 0.5 -Total Square Cm 1.0 -Exudate Amt Medium -Exudate Type Serosanguineous -Wound Margin Distinct, Outline Attached -Granulation Amt Medium (34-66%) -Slough/Fibrin Yes -Necrosis Amt Medium (34-66%) -Necrotic Tissue Type Adherent Slough -Texture (Yari-wound Skin Appearance) Assessed -Moisture (Yari-wound Skin Appearance) Assessed -Color (Yari-wound Skin Appearance) Assessed -Temperature (Yari-wound Skin No Abnormality Appearance) (Pt Warm) -Tenderness on Palpation (Yari-wound No Skin Appearance) -Ulcer Cleansing Rinsed/ Irrigated with Saline -Foul Odor after Cleansing No -Anesthetic Used 5% Lidocaine Gel - Nurse 2 - General Ulcer CM Notes Start: 12/10/24 10:30 Freq: Status: Active Protocol: Activity Type Activity Date Activity User E-sign Co-sign Detail Recorded Client Recorded Date Recorded By Document 12/10/24 11:08 JF [id number] 12/10/24 11:08 SEB 12/10/24 11:08 Wound Center Nurse 2 -Time 11:08 -Correct Patient Yes -Correct Side, Site, Position Yes -Correct Procedure Yes -Procedure Performed Yes -Type of Procedure Debridement -Clinical Debridement Subcutaneous -Tissue Removed Subcutaneous -Post Debridement (cm) - Length 3.0 -Post Debridement (cm) - Width 0.7 -Post Debridement (cm) - Depth 1.0 -Total Square (Post) (cm) 2.10 -Area of Debridement (cm) - Length 3.0 -Area of Debridement (cm) - Width 0.7 -Total Square (Area) (cm) 2.10 -Tunneling No -Undermining/Tunneling No -Circular Undermining No -Wound/Ulcer Outcome Not Healed -Ulcer Cleansing Rinsed/ Irrigated with Saline -Foul Odor after Cleansing No -Bioengineered Tissue No -Bleeding Controlled with Pressure -Treatment Response Procedure Tolerated Well -Offloading No -Debridement - Subq, 1st 20sq cm Yes Pain Scale: 0-10 Numeric Is Patient Pain Free? Yes - Nurse 3 - General Ulcer D/C NN Start: 12/10/24 10:30 Freq: Status: Active Protocol: Activity Type Activity Date Activity User E-sign Co-sign Detail Recorded Client Recorded Date Recorded By Document 12/10/24 11:16 SAMMY [id number] 12/10/24 11:17 SAMMY 12/10/24 11:16 Wound Care Center Nurse 3 #1 R Soulder -Ulcer Cleansing Rinsed/ Irrigated with Saline -Primary Dressing Applied Aquacel AG 2x2 -Primary Dressing Covered/Secured with Dry Gauze, Secured with Tape -Aquacel AG 2x2 1 Pain Scale: 0-10 Numeric Is Patient Pain Free? Yes WC - Visit Discharge Discharge Condition Stable Ambulatory Status Ambulatory Transportation Private Auto Medication Reconcilliation completed & No provided to patient/care provider Clinical Summary of Care Provided Yes Assessment/Plan Assessment/Plan (1) Wound, open, back: CODE(S): S21.209A - Unspecified open wound of unspecified back wall of thorax without penetration into thoracic cavity, initial encounter PLAN: Continue Aqaucel Ag dressing changes daily with 2 week f/u in the [facility] (discussed once piece in, one piece out) Continue wound care and tight blood sugar control
--- NOTE | 2024-12-12 09:34 | WC ---
PHOTO-RIGHT SHOULDER 12/10/24
== END 2025-01-01 23:59 | disposition home or self-care (01) ==
LOC: WC 09:22
PROVIDERS: PCP Family Medicine; Referring Provider Family Medicine; Visit Provider Surgery Plastic and Reconstructive Surgery
DX: L02.212 Cutaneous abscess of back [any part, except buttock and flank] (principal); E11.65 Type 2 diabetes mellitus with hyperglycemia; E11.628 Type 2 diabetes mellitus with other skin complications
CPT/HCPCS: 11042

== ENCOUNTER 2025-01-28 14:15 | Outpatient (RCR) | payer MEDICARE, SELFPAY ==
[2025-01-07 09:55] VITALS: BP 134/85; PULSE 106; RESP 16; TEMP 36.4
--- NOTE | 2025-01-07 10:46 | PN.PCM_ITS ---
History of Present Illness Date of Service: 01/07/25 History of Wound: HPI 22 October 2024: The patient is a 64-year-old male presenting with an abscess on the right upper back. Approximately 4 to 5 weeks ago, the patient noticed a small red pimple on the right upper back, which progressed into an abscess. The abscess was initi ally incised and drained by Dr. Lucero, but it continued to drain and required further intervention. The patient has a history of diabetes mellitus with a significantly elevated A1c of 12.6, indicating poor glycemic control. He has been prescribed a new injectable medication for diabetes management, which he plans to start soon. ROS: - Integumentary: Reports abscess on right upper back - Endocrine: Reports diabetes mellitus with elevated A1c Attestation: Documentation on this patient encounter was supported using ambient scribe technology/ voice AI technology. The patient consented to recording for the purpose of documenting the encounter. Provider reviewed content of the generated note prior to signature. Subjective Subjective 29 October 2024: Patient presents 1 week status post incision and drainage of right upper back abscess The patient is a 64-year-old male presenting with a wound infection in the context of diabetes mellitus. The patient has been experiencing elevated blood glucose levels, with a recent A1c of 13, necessitating the initiation of insulin therapy. The wound is described as deep, measuring approximately 4 x 4 x 3 cm, extending to the muscle and fascia, but without tunneling. The infection is currently controlled with antibiotics, specifically Bactrim, which was prescribed to address a culture-confirmed MSSA infection. The patient has been advised to maintain blood glucose control to facilitate wound healing. The wound care regimen includes regular irrigation and packing, with dressing changes recommended twice daily. ROS: - Endocrine: Reports elevated blood glucose levels, A1c of 13. - Integumentary: Reports deep wound, no tunneling, down to muscle and fascia. Attestation: Documentation on this patient encounter was supported using ambient scribe technology/ voice AI technology. The patient consented to recording for the purpose of documenting the encounter. Provider reviewed content of the generated note prior to signature. 12 Nov 2024: Doing well overall. Finished his antibiotics. Doing well with wound care. 26 November 2024: Doing well overall. Has not been checking blood sugar though. Reports good dressing changes. 10 Dec 2024: Patient doing well overall and is making some improvements with his wound. The wound is now 3 x 0.7 cm only 1 cm deep CURRENT ENCOUNTER, 07 Jan 2025: Doing well overall. Reports decrease in size of the wound with good dressing changes. His primary care physician has made adjustments in his metformin to improve his blood sugars. Objective Data Objective Data Vital Signs: Vital Signs Temp Pulse Resp BP O2 Del Method 97.6 F L 106 H 16 134/85 H Room Air 01/07/25 09:55 01/07/25 09:55 01/07/25 09:55 01/07/25 09:55 01/07/25 09:55 Oxygen Delivery Method Room Air Charges/Coding Visit Charges Office Visits / Consults: 32574 OV L2 Est 10min Physical Exam Narrative - Integumentary: Superficial wound that is nearly healed and is now 1 x 0.5 cm and is 0.1 cm deep. Healthy granulation tissue at the base , no purulence Const alert and oriented x3 Debridement Note Debridement Note No debridement was completed: No debridement was completed today Post-Debridement Measurements and Additional Note: Post-Debridement Measurements/Treatment [facility] Nurse 1 - General Ulcer Assessment Start: 01/07/25 09:55 Freq: Status: Active Protocol: WC.LOWTRISHAT Activity Type Activity Date Activity User E-sign Co-sign Detail Recorded Client Recorded Date Recorded By Document 01/07/25 09:55 [id number] 01/07/25 09:56 01/07/25 09:55 - Today's Visit Information Type of service Follow-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 Any new allergies or adverse reactions No Had a fall/change in ADL's that may No increase risk of falls Signs or symptoms of abuse and/or No neglect since last visit Have you been in the hospital since your No last visit? Has dressing in place as prescribed Yes Has compression in place as prescribed N/A Has offloadiing in place as prescribed N/A Experienced any changes in pain level or No management Pain Scale: 0-10 Numeric Is Patient Pain Free? Yes WC - Nurse 1 - General Ulcer Measurement Start: 01/07/25 09:55 Freq: Status: Active Protocol: Activity Type Activity Date Activity User E-sign Co-sign Detail Recorded Client Recorded Date Recorded By Document 01/07/25 09:55 [id number] 01/07/25 09:56 GM 01/07/25 09:55 Wound Center Nurse 1 #1 Astrid Valera -Current Size (cm) - Length 1.9 -Current Size (cm) - Width 0.3 -Current Size (cm) - Depth 0.1 -Total Square Cm 0.57 -Date of Last Picture (Recall this 01/07/25 field) -Photo Taken Yes -Epithelialization Medium 34-66% -Tunneling No -Undermining/Tunneling No -Circular Undermining No -Exudate Amt Small -Exudate Type Sanguineous -Wound Margin Distinct, Outline Attached -Granulation Amt Medium (34-66%) -Slough/Fibrin No -Necrosis Amt None Present (0 %) -Texture (Yari-wound Skin Appearance) Assessed -Moisture (Yari-wound Skin Appearance) Assessed -Color (Yari-wound Skin Appearance) Assessed -Temperature (Yari-wound Skin No Abnormality Appearance) (Pt Warm) -Tenderness on Palpation (Yari-wound No Skin Appearance) -Ulcer Cleansing Rinsed/ Irrigated with Saline -Foul Odor after Cleansing No -Anesthetic Used 5% Lidocaine Gel SUZI - Nurse 2 - General Ulcer CM Notes Start: 01/07/25 09:55 Freq: Status: Active Protocol: Activity Type Activity Date Activity User E-sign Co-sign Detail Recorded Client Recorded Date Recorded By Document 01/07/25 10:38 DS [id number] 01/07/25 10:40 DS 01/07/25 10:38 Wound Center Nurse 2 -Time 10:39 -Correct Patient Yes -Correct Side, Site, Position Yes -Procedure Performed No -Post Debridement (cm) - Length 1.0 -Post Debridement (cm) - Width 0.5 -Post Debridement (cm) - Depth 0.1 -Total Square (Post) (cm) 0.50 -Area of Debridement (cm) - Length 1.0 -Area of Debridement (cm) - Width 0.5 -Total Square (Area) (cm) 0.50 -Tunneling No -Undermining/Tunneling No -Circular Undermining No -Wound/Ulcer Outcome Not Healed -Ulcer Cleansing gauze Pain Scale: 0-10 Numeric Is Patient Pain Free? Yes - Nurse 3 - General Ulcer D/C NN Start: 01/07/25 09:55 Freq: Status: Active Protocol: Activity Type Activity Date Activity User E-sign Co-sign Detail Recorded Client Recorded Date Recorded By Document 01/07/25 10:40 DS [id number] 01/07/25 10:40 DS 01/07/25 10:40 Wound Care Center Nurse 3 #1 R Soulder -Primary Dressing Applied C Hydrogel -Other Dressing bandaide -Hydrogel 1 Pain Scale: 0-10 Numeric Is Patient Pain Free? Yes - Visit Discharge Discharge Condition Stable Ambulatory Status Ambulatory Transportation Private Auto Assessment/Plan Assessment/Plan (1) Wound, open, back: CODE(S): S21.209A - Unspecified open wound of unspecified back wall of thorax without penetration into thoracic cavity, initial encounter PLAN: Switch to daily hydrogel dressings with Band-Aid Patient happy with the plan Follow-up in 3 weeks
--- NOTE | 2025-01-08 11:40 | WC ---
PHOTO-RIGHT SHOULDER 01/07/25
[2025-01-28 14:30] VITALS: BP 129/96; PULSE 107; RESP 15; TEMP 35.9
--- NOTE | 2025-01-28 16:48 | PN.PCM_ITS ---
History of Present Illness Date of Service: 01/28/25 History of Wound: HPI 22 October 2024: The patient is a 64-year-old male presenting with an abscess on the right upper back. Approximately 4 to 5 weeks ago, the patient noticed a small red pimple on the right upper back, which progressed into an abscess. The abscess was initi ally incised and drained by Dr. Lucero, but it continued to drain and required further intervention. The patient has a history of diabetes mellitus with a significantly elevated A1c of 12.6, indicating poor glycemic control. He has been prescribed a new injectable medication for diabetes management, which he plans to start soon. ROS: - Integumentary: Reports abscess on right upper back - Endocrine: Reports diabetes mellitus with elevated A1c Attestation: Documentation on this patient encounter was supported using ambient scribe technology/ voice AI technology. The patient consented to recording for the purpose of documenting the encounter. Provider reviewed content of the generated note prior to signature. Subjective Subjective 29 October 2024: Patient presents 1 week status post incision and drainage of right upper back abscess The patient is a 64-year-old male presenting with a wound infection in the context of diabetes mellitus. The patient has been experiencing elevated blood glucose levels, with a recent A1c of 13, necessitating the initiation of insulin therapy. The wound is described as deep, measuring approximately 4 x 4 x 3 cm, extending to the muscle and fascia, but without tunneling. The infection is currently controlled with antibiotics, specifically Bactrim, which was prescribed to address a culture-confirmed MSSA infection. The patient has been advised to maintain blood glucose control to facilitate wound healing. The wound care regimen includes regular irrigation and packing, with dressing changes recommended twice daily. ROS: - Endocrine: Reports elevated blood glucose levels, A1c of 13. - Integumentary: Reports deep wound, no tunneling, down to muscle and fascia. Attestation: Documentation on this patient encounter was supported using ambient scribe technology/ voice AI technology. The patient consented to recording for the purpose of documenting the encounter. Provider reviewed content of the generated note prior to signature. 12 Nov 2024: Doing well overall. Finished his antibiotics. Doing well with wound care. 26 November 2024: Doing well overall. Has not been checking blood sugar though. Reports good dressing changes. 10 Dec 2024: Patient doing well overall and is making some improvements with his wound. The wound is now 3 x 0.7 cm only 1 cm deep 07 Jan 2025: Doing well overall. Reports decrease in size of the wound with good dressing changes. His primary care physician has made adjustments in his metformin to improve his blood sugars. CURRENT ENCOUNTER, 28 January 2025: Doing well overall no fevers chills Objective Data Objective Data Vital Signs: Vital Signs Temp Pulse Resp BP O2 Del Method 96.6 F L 107 H 15 129/96 H Room Air 01/28/25 14:30 01/28/25 14:30 01/28/25 14:30 01/28/25 14:30 01/07/25 09:55 Oxygen Delivery Method Room Air Charges/Coding Visit Charges Office Visits / Consults: 72933 OV L2 Est 10min Physical Exam Narrative - Integumentary: Small superficial excoriation on the back Wound is healing nicely Const alert and oriented x3 Debridement Note Debridement Note No debridement was completed: No debridement was completed today Assessment/Plan Assessment/Plan (1) Wound, open, back: CODE(S): S21.209A - Unspecified open wound of unspecified back wall of thorax without penetration into thoracic cavity, initial encounter PLAN: Patient will continue hydrogel dressings with Band-Aid for the small excoriation which will likely heal then within the next couple of days Patient happy with the plan Follow-up as needed
== END 2025-01-28 15:34 | disposition home or self-care (01) ==
LOC: WC 14:15
PROVIDERS: PCP Family Medicine; Referring Provider Family Medicine; Visit Provider Surgery Plastic and Reconstructive Surgery
DX: L02.212 Cutaneous abscess of back [any part, except buttock and flank] (principal); E11.65 Type 2 diabetes mellitus with hyperglycemia; E11.628 Type 2 diabetes mellitus with other skin complications
CPT/HCPCS: 99212; 99213; G0463

== ENCOUNTER 2025-03-18 10:01 | Outpatient (CLI) | payer MEDICARE, SELFPAY ==
[2025-03-18 12:22] LABS: Hematocrit 42.7 % (40-54); Hemoglobin 14.8 g/dL (13.0-16.5); Immature Granulocytes Count 0.020 X10^3/uL (0.0-0.0); Mean Corp Hgb Conc 34.7 g/dL (32-36); Mean Corpuscular Volume 84.9 fL (80-94); Mean Platelet Vol. 11.6 fl (6.2-12.0); NRBC Flagged by Analyzer 0 % (0-5); Platelet Count 177 K/mm3 (150-450); RBC Distribution Width CV 12.7 % (11.6-14.6); RBC Distribution Width SD 39.1 fl (35.1-43.9); Red Blood Count 5.03 M/mm3 (4.6-6.2); White Blood Count 8.5 K/mm3 (4.4-11.0)
--- OUTSIDE RECORDS SUMMARY | 2025-03-18 12:48 | XMS RPT_ITS | CCD ---
Author Organization [facility] Care Team Providers Care Bung Sewer Name Role Phone Sandhya Lisa Unavailable Unavailable ZIA DDahlia, SANDHYA Mancera Unavailable Unavail able Sandhya Lisa Unavailable Unavailable Keesha Murcia Primary Care Provider Keesha Murcia Unavailable Katie Em DO Primary Care Provider KATIE EM Primary Care Unavailab le Katie Em DO Primary Care Provider Keesha Murcia MD Primary Care Provider Keesha Murcia MD Unavailable Dr. Kyle Lucero DO Primary Care Provider Dr. Kyle Lucero DO Attending Provider [phone] [phone] Dr. Kyle Lucero DO Referring Provider [phone] 01-09 Dr. Manpreet Joshi MD Attending Provider Dr. Manpreet Joshi MD Other Provider Dr. Kyle Lucero DO Referring Provider Dr. Manpreet Joshi MD Attending Provider Dr. Manpreet Joshi MD Other Provider Dr. Kyle Lucero DO Primary Care Physician Dr. Kyle Lucero DO Attending Physician Dr. Manpreet Joshi MD Attending Physician Dr. Manpreet Joshi MD Nurse Practitioner Dr. Manpreet Joshi MD Referring Provider Nic, Kyle Primary Care Unavailable Nic, Kyle Referring Unavailable Natasha Ohara Attending Unavailable Nic, Kyle Primary Care Unavailable Siska, Manpreet Consulting Unavailable Siska, Manpreet Attending Unavailable Siska, Manpreet Referring Unavailable Nic, Kyle Primary Care Unavailable Siska, Manpreet Consulting Unavailable Siska, Manpreet Attending Unavailable Siska, Manpreet Referring Unavailable Siska, Manpreet Attending Unavailable Nic, Kyle Primary Care Unavailable Nic, Kyle Referring Unavailable Nic, Kyle Primary Care Unavailable Nic, Kyle Referring Unavailable Siska, Manpreet Attending Unavailable Nic, Kyle Attending Unavailable Nic, Kyle Primary Care Unavailable Nic, Kyle Primary Care Unavailable Nic, Kyle Referring Unavailable Siska, Manpreet Attending Unavailable Nic, Kyle Primary Care Unavailable Nic, Kyle Referring Unavailable Siska, Manpreet Attending Unavailable Nic, Kyle Primary Care Unavailable Nic, Kyle Referring Unavailable Natasha Ohara Attending Unavailable Siska, Manpreet Attending Unavailable Nic, Kyle Primary Care Unavailable Siska, Manpreet Consulting Unavailable Siska, Manpreet Referring Unavailable Siska, Manpreet Attending Unavailable Nic, Kyle Primary Care Unavailable Nic, Kyle Referring Unavailable Siska, Manpreet Consulting Unavailable Nic, Kyle Referring Unavailable Nic, Kyle Primary Care Unavailable Siska, Manpreet Attending Unavailable Siska, Manpreet Consulting Unavailable Nic, Kyle Referring Unavailable Nic, Kyle Primary Care Unavailable Siska, Manpreet Attending Unavailable Siska, Manpreet Consulting Unavailable Nic, Kyle Primary Care Unavailable Siska, Manpreet Attending Unavailable Siska, Manpreet Consulting Unavailable Siska, Manpreet Referring Unavailable Medications Current Medications Medication Drug Class(es) Dates Sig (Normalized) Sig (Original) acetaminophen 325 mg / oxyCODONE hydrochloride 5 mg oral tablet (2 sources) Opioid Agonist Start: 09-27-2014 take 1-2 tablets by mouth every four to six hours as needed oxyCODONE-acetaminop hen (PERCOCET) 5-325 mg per tablet 1-2 PO Q 4-6 hours PRN 90 tablet 0 09/27/2014 Active aspirin 81 mg delayed release oral tablet (2 sources) Platelet Aggregation Inhibitor, Nonsteroidal Anti-inflammatory Drug Start: 01-05-2008 aspirin(BONI LOW STRENGTH 81 MG TAB) Take one(1) tablet every other day. 0 0 01/05/2008 Active Comment on above: Take one(1) tablet e very other day. atorvastatin 10 mg oral tablet (2 sources) HMG-CoA Reductase Inhibitor take 1 tablet by mouth once daily atorvastatin (LIPITOR) 10 mg tablet Take 10 mg by mouth once daily. Active Comment on above: Take 10 mg by mouth once daily. Blood-Glucose Meter (RELION PRIME) [facility] (2 sources) Start: 02-13-2013 Blood-Glucose Meter (RELION PRIME) [facility] Indications: Type II or unspecified type diabetes mellitus without mention of complication, not stated as uncontrolled Meter Kit 0 02/13/2013 Active Comment on above: Meter Kit Blood-Glucose Sensor (Dexcom G7 Sensor) device (4 sources) Start: 04-02-2024 Blood-Glucose Sensor (Dexcom G7 Sensor) device Active 0 .Route 3 April 02, 2024 1:00am Diabetes mellitus Type 2 diabetes mellitus without complications 1 sensor q 10 days cyclobenzaprine hydrochloride 10 mg oral tablet (2 sources) Muscle Relaxant Start: 11-12-2014 take 1 tablet by mouth three times daily as needed for muscle spasms cyclobenzaprine (FLEXERIL) 10 MG tablet Take 1 tablet (10 mg total) by mouth 3 (three) times a day as needed for muscle spasms. 60 tablet 1 11/12/2014 Active doxycycline monohydrate 100 mg oral tablet (1 source) Tetracycline-class Drug Start: 02-09-2024 End: 02-14-2024 take 1 tablet by mouth twice daily doxycycline monohydrate 100 mg tablet Indications: Pain of toe of left foot , Ingrown toenail Take 1 tablet by mouth two times a day for 5 days. 10 tablet 02/09/2024 02/14/2024 Active empagliflozin 10 mg oral tablet (2 sources) Sodium-Glucose Cotransporter 2 Inhibitor take 1 tablet by mouth once daily empagliflozin (JARDIANCE) 10 mg Tab Take 10 mg by mouth daily. Active fish oil-omega-3 fatty acids 300-1,000 mg capsule (2 sources) take 1 capsule by mouth once daily fish oil-omega-3 fatty acids 300-1,000 mg capsule Take 1 g by mouth daily. Active take 1 capsule by mouth once shane ly fish oil-omega-3 fatty acids 300-1,000 mg capsule Take 1 g by mouth daily. 0 Active gabapentin 300 mg oral capsule (2 sources) Anti-epileptic Agent Start: 11-12-2014 take 1 capsule by mouth three times daily gabapentin (NEURONTIN) 300 MG capsule Take 1 capsule (300 mg total) by mouth 3 (three) times a day. 90 capsule 1 11/12/2014 Active glimepiride 4 mg oral tablet (2 sources) Sulfonylurea take 1 tablet by mouth twice daily glimepiride (AMARYL) 4 MG tablet Take 4 mg by mouth 2 (two) times a day. Active glipiZIDE 10 mg oral tablet (4 sources) Sulfonylurea Start: 04-02-2024 take 1 tablet by mouth twice daily ketorolac tromethamine 10 mg oral tablet (2 sources) Nonsteroidal Anti-inflammatory Drug, Cyclooxygenase Inhibitor Start: 09-06-2014 take 1 tablet by mouth four times daily ketorolac (TORADOL) 10 mg tablet 1 PO QID 20 tablet 0 09/06/2014 Active lisinopril 10 mg oral tablet (8 sources) Angiotensin Converting Enzyme Inhibitor Start: 04-02-2024 take 1 tablet by mouth once daily Start: 03-17-2013 take 1 tablet by chandra th once daily lisinopril 10 mg tablet Indications: Essential hypertension, benign Take 1 tablet by mouth once daily. 30 tablet 5 03/17/2013 Active Comment on above: Take 1 tablet by chandra th once daily. 24 hr metFORMIN hydrochlorid e 500 mg extended release oral tablet (18 sources) Biguanide Start: 04-02-2024 Start: 04-02-2024 End: 04-02-2024 Metformin 1,000 mg tablet Discontinued 500 mg PO TWICE A DAY April 02, 2024 3:13pm April 02, 2024 3:59pm Start: 04-02-2024 End: 04-02-2024 Metformin 500 mg tablet exte nded release 24 hr Discontinued 2000 mg PO TWICE A DAY 240 3 April 02, 2024 1:00am April 02, 2024 4:00pm Diabetes mellitus Type 2 diabetes mellitus without complications Start: 04-02-2024 End: 04-02-2024 take 1 tablet by mouth twice daily Metformin 1,000 mg tablet Discontinued 1000 mg PO TWICE A DAY April 02, 2024 1:00am April 02, 2024 3:13pm Start: 03-12-2011 take 1 tablet by chandra th once daily metFORMIN (GLUCOPHAGE) 1,000 mg tablet Take 1 tablet by mouth once daily. 03/12/2011 Active Comment on above: Take 1 tablet by chandra once daily. metFORMIN hydrochloride 1000 mg / SITagliptin 50 mg oral tablet (3 sources) Biguanide, Dipeptidyl Peptidase 4 Inhibitor take 1 tablet by mouth once daily sitagliptan-metFOR MIN (JANUMET) 50-1,000 mg per tablet Take 1 tablet by mouth daily. Active End: 06-03-2022 SITagliptin-metFORMIN (JANUM ET XR) 50-1,000 mg TM24 Take by mouth once daily. 0 06/03/2022 Discontinued (Discontinued by another Health Care Provider) Comment on above: Take by mouth once d aily. Multivit With Min-Folic Acid (Centrum Adult 50 Plus) 80 mcg tablet,chewable (4 sources) Start: 04-02-2024 Start: 04-02-2024 Multivit With Min-Folic Acid (Centrum Adult 50 Plus) 80 mcg tablet,chewable Active 1 {tbl} PO ONCE April 02, 2024 1:00am multivitamin capsule (2 sources) take 1 capsule by mo [facility] once daily multivitamin capsule Take 1 capsule by mouth daily. Active take 1 capsule by mouth once shane ly multivitamin capsule Take 1 capsule by mouth daily. 0 Active MULTIVITAMIN,AG-WFLW-EJHGBMA S TAB (2 sources) Start: 03-06-2007 MULTIVITAMIN,HO-BOQK-QBGHDHM S TAB Take one(1) tablet daily. 0 0 03/06/2007 Active Comment on above: Take one(1) tablet d aily. mupirocin 0.02 mg/mg topical ointment (1 source) RNA Synthet ase Inhibit or Antibac terial Start: 02-09-2024 End: 02-14-2024 mupirocin (BACTROBAN) 2 % ointment Indications: Pain of toe of left foot , Ingrown toenail Apply 1 application to affected area three times a day for 5 days. 22 g 02/09/2024 02/14/2024 Active naproxen 500 mg oral tablet (2 sources) Nonster oidal Anti-in flammat ory Drug Start: 06-03-2022 take 1 tablet by mouth twice daily at mealtim e naproxen (NAPROSYN) 500 mg tablet Indications: TMJ dysfunction Take 1 tablet by mouth twice daily with meals. 60 tablet 06/03/2022 Active Comment on above: Take 1 tablet by chandra twice daily with meals. [place] 5-Eet-Bwg-Fish Oil (Fi sh Oil) 60-90-500 mg capsule (4 sources) Start: 04-02-2024 Start: 04-02-2024 [place] 3-Dha-Ep a-Fish Oil (Fish Oil) 60-90-500 mg capsule Active 1 NMA PO daily April 02, 2024 1:00am [place]-3 Fatty Acids (FISH OIL) 500 mg cap (2 sources) Start: 11-23-2011 take 1 capsule by mouth once daily [place]-3 Fatty Acids (FISH OIL) 500 mg cap Take 1 capsule by mouth once daily. 0 11/23/2011 Active Comment on above: Take 1 capsule by mo [facility] once daily. pioglitazone 30 mg oral tablet (2 sources) Peroxisome Proliferator Receptor alpha Agonist, Peroxisome Proliferator Receptor gamma Agonist, Thiazolidinedione Start: 03-30-2022 take 1 tablet by mouth once daily pioglitazone (ACTOS) 30 mg tablet Take 30 mg by mouth once daily. 03/30/2022 Active Comment on above: Take 30 mg by mouth once daily. pregabalin 300 mg oral capsule (6 sources) Start: 04-02-2024 take 1 capsule by mouth twice daily Start: 05-07-2022 take 1 capsule by mo [facility] twice daily pregabalin (LYRICA) 75 mg capsule Take 75 mg by mouth twice daily. 05/07/2022 Active Comment on above: Take 75 mg by mouth twice daily. simvastatin 20 mg oral tablet (4 sources) HMG-CoA Reductase Inhibitor Start: 04-02-2024 take 1 tablet by mouth once daily sulfamethoxazole 800 mg / trimethoprim 160 mg oral tablet (4 sources) Dihydrofolate Reductase Inhibitor Antibacterial, Sulfonamide Antimicrobial Start: 10-22-2024 Start: 01-24-2024 take 1 tablet by chandra every twelve hours sulfamethoxazole-trimethoprim (BACTRIM D S) 800-160 mg per tablet Take 1 tablet by mouth every 12 hours. 01/24/2024 Active tiZANidine 4 mg oral tablet (2 sources) Central alpha-2 Adrenergic Agonist Start: 06-03-2022 tiZANidine (ZANAFLEX ) 4 mg tablet Indications: TMJ dysfunction Take 1 tablet by mouth as needed. 15 tablet 06/03/2022 Active Comment on above: Take 1 tablet by chandra th as needed. Completed/Discontinued Medications Medication Drug Class(es) Dates Sig (Normalized) Sig (Original) Semaglutide (4 sources) Start: 04-02-2024 End: 10-22-2024 Semaglutide (Ozempic) 0.25 mg or 0.5 mg (2 mg/3 mL) pen injector Discontinued 0.5 mg SC EVERY WEEK 3 April 02, 2024 1:00am October 22, 2024 10:19am Diabetes mellitus Type 2 diabetes mellitus without complications Start: 04-02-2024 Semaglutide (O zempic) 0.25 mg or 0.5 mg (2 mg/3 mL) pen injector Active 0.5 mg SC EVERY WEEK 3 April 02, 2024 1:00am Diabetes mellitus Type 2 diabetes mellitus without complications Problems Active Problems Problem Classification Problem Date Documented Date Episodic/Chronic Diabetes mellitus with complications (2 sources) Type 2 diabetes mellitus with hyperglycemia; Translations: [Type 2 diabetes mellitus with hyperglycemia] Onset: 01-28-2025 Chronic Diabetes mellitus without complication (14 sources) Type 2 diabetes mellitus without complications; Translations: [Type 2 diabetes mellitus] Onset: 06-14-2007 08-07-2014 Chronic Disorders of lipid metabolism (6 sources) Hyperlipidemia; Translations: [Hyperlipidemia, unspecified] 01-29-2005 Chronic Disorders of teeth and jaw (1 source) Temporomandibular joint disorder; Translations: [Unspecified temporomandibular joint disorder, unspecified side] Episodic Essential hypertension (6 sources) Benign essential hypertension; Translations: [Essential (primary) hypertension] Onset: 09-06-2005 09-06-2005 Chronic Open wounds of head; neck; and trunk (11 sources) Open wound of back; Translations: [Unspecified open wound of unspecified back wall of thorax without penetration into thoracic cavity, initial encounter] Onset: 01-28-2025 10-29-2024 Episodic Other connective tissue disease (1 source) Pain of toe of left foot; Translations: [Pain in left toe(s)] 02-09-2024 Episodic Other nervous system disorders (4 sources) Neuropathy; Translations: [Polyneuropathy, unspecified] 04-02-2024 Chronic Other nutritional; endocrine; and metabolic disorders (7 sources) Obesity; Translations: [Obesity, unspecified] 04-02-2024 Chronic Other nutritional; endocrine; and metabolic disorders (2 sources) Other obesity due to excess calories; Translations: [Other obesity due to excess calories] Onset: 01-28-2025 Chronic Other nutritional; endocrine; and metabolic disorders (2 sources) Body mass index (BMI) 34.0-34.9, adult; Translations: [Body mass index [BMI] 34.0-34.9, adult] Onset: 01-28-2025 Chronic Other skin disorders (1 source) Ingrowing toenail; Translations: [Ingrowing nail] 02-09-2024 Episodic Skin and subcutaneous tissue infections (9 sources) Cellulitis and abscess of toe; Translations: [Cellulitis of unspecified toe] Onset: 04-26-2011 Resolved: 02-13-2013 02-13-2013 Episodic Unclassified (2 sources) Obesity, class 1; Translations: [Obesity, class 1] Onset: 01-28-2025 Past or Other Problems Problem Classification Problem Date Documented Da te Episodic/Chronic Diabetes mellitus without complication (1 source) Abnormal glucose level; Translations: [Other abnormal glucose] Onset: 09-06-2005 Resolved: 02-13-2013 02-13-2013 Episodic Other connective tissue disease (2 sources) Plantar fasciitis; Translations: [Plantar fascial fibromatosis] Onset: 02-13-2013 02-13-2013 Episodic Other gastrointestinal disorders (1 source) Diarrhea; Translations: [Diarrhea, unspecified] Resolved: 02-13-2013 02-13-2013 Episodic Other nutritional; endocrine; and metabolic disorders (1 source) Metabolic syndrome X; Translations: [Dysmetabolic syndrome X] Resolved: 02-13-2013 02-13-2013 Chronic Other screening for suspected conditions (not mental disorders or infectious disease) (2 sources) Patient encounter status; Translations: [Encounter for screening for malignant neoplasm of colon] Onset: 10-11-2016 10-11-2016 Episodic Spondylosis; intervertebral disc disorders; other back problems (2 sources) Spinal stenosis of lumbar region; Translations: [Spinal stenosis, lumbar region without neurogenic claudication] Onset: 08-06-2014 08-06-2014 Episodic Results Test Name Value Interpretation Reference Range Facil ity Culture, Anaerobic Any Sourc cynthia 10-26-2024 CUAN right shoulder No anaerobic bacteria isolated. Normal [facility] Comment on above: Performed By: #### M 100.4001, M100.2000, M100.3000 #### [facility] [address] [place], [address] Wound Cultureon 10-25-2024 WC right shoulder Staphylococcus aureus Amount Growth 2+ Staphylococcus aureus: REACTION cefOXitin Susc Islt Doxycycline Islt HAY <=0.5 S Clindamycin Islt HAY 0.25 S Clindamycin.induced Susc Islt NEG Erythromycin Islt HAY <=0.25 S Gentamicin Islt HAY <=0.5 S Linezolid Islt HAY 2 S Moxifloxacin Islt HAY <=0.25 S Oxacillin Susc Islt <=0.25 S Tetracycline Islt HAY <=1 S TMP SMX Islt HAY <=10 S Vancomycin Islt HAY <=0.5 S Normal [facility] Comment on above: Performed By: #### M 100.4001, M100.2000, M100.3000 #### [facility] [address] [place], [address] Gram Stainon 10-23-2024 GS right shoulder Gram Stain 1+ Gram positive cocci No Epithelial cells 2+ White Blood Cells Normal [facility] Comment on above: Performed By: #### M 100.4001, M100.2000, M100.3000 #### [facility] [address] [place], [address] Wound Ctr History AND Physic david 10-23-2024 Wound Ctr History & Physical [facility] [address] [place] [address] H P Exam - Wound Care 10/23/24 1108 MR#: [id number] Acct: [id number] Name: KAN SAENZ Rep #: [id number] : 1960 64 From: Manpreet Joshi MD PCP: Dr. Kyle Lucero, DO Status:REG RCR Location: History of Present Illness Date of Service: 10/22/24 History of Wound: The patient is a 64-year-old male presenting with an abscess on the right upper back. Approximately 4 to 5 weeks ago, the patient noticed a small red pimple on the right upper back, which progressed into an abscess. The abscess was initially incised and drained by Dr. Lucero, but it continued to drain and required further intervention. The patient has a history of diabetes mellitus with a significantly elevated A1c of 12.6, indicating poor glycemic control. He has been prescribed a new injectable medication for diabetes management, which he plans to start soon. ROS: - Integumentary: Reports abscess on right upper back - Endocrine: Reports diabetes mellitus with elevated A1c Attestation: Documentation on this patient encounter was supported using ambient scribe technology/ voice AI technology. The patient consented to recording for the purpose of documenting the encounter. Provider reviewed content of the generated note prior to signature. [facility] Medical History Neuropathy Home Medications ???Medication ???Instructions ???Recorded ???Last Taken ???Type blood-glucose sensor (Dexcom G7 #3 ea 04/02/24 Unknown Rx Sensor device) glipizide 10 mg tablet 10 mg PO BID #60 tabs 04/02/24 Unk nown Rx lisinopril 10 mg tablet 10 mg PO QDAY 04/02/24 Unknown His tory metformin 500 mg tablet,extended 1,000 mg (2 x 500 mg) PO BID #120 04/02/24 Unknown Rx release 24 hr tabs multivitamin with minerals-folic 1 tab PO ONCE 04/02/24 Unknown His tory acid 80 mcg chewable tablet (Centrum Adult 50 Plus) omega 5-yul-jtv-fish oil 60 mg-90 1 cap PO QDAY 04/02/24 Unknown Hi story mg-500 mg capsule (Fish Oil) pregabalin 300 mg capsule 300 mg PO BID 04/02/24 Unknown His tory simvastatin 20 mg tablet 20 mg PO QDAY 04/02/24 Unknown His tory sulfamethoxazole 800 1 tab PO Q12H 10/22/24 Unknown His tory mg-trimethoprim 160 mg tablet Allergy/AdvReac Type Severity Reaction Status Date / Time No Known Allergies Allergy Verified 04/02/24 14:02 Family History Father Diabetes Mother Myocardial infarction CVA (cerebral vascular accident) Surgical History H/O hernia repair History of appendectomy History of ear, nose, and throat (ENT) surgery Previous back surgery Social History Smoking Status: Never smoker alcohol intake: never substance use type: does not use what type of physical activity do you participate in: none Vital Signs Vital Signs Vital Signs: Weight Weight: 216 lb 3.175 oz Body Mass Index (BMI) 34.9 Physical Exam Narrative Right upper back with a swollen indurated with purulent drainage through her previous abscess I D incision. There is definitely fluctuance and residual purulence with inflammatory rind/loculations Debridement Note Debridement Note Wound debrided: Right upper back abscess Laterality: Right Wound Grade/Stage: Abscess on the right upper back superficial to the muscle Type of Debridement: - (Incision and drainage with hemostat used to break up complex loculations) Anesthesia Used: - (20 cc of 1% lidocaine with 1-200,000 epinephrine) Depth: to muscle Percentage of wound debrided: 100 Instrument Used: #15 blade and - (Hemostat and scissors and forceps) Tissue Removed: Inflammatory rind from the abscess cavity as well as purulence Severity: Fat Layer Exposed Amount of bleeding with debridement: Moderate Bleeding Controlled with: Compression and gauze Patient tolerated procedure: Patient tolerated procedure well Debridement Free Text: 15 blade scalpel was used to make an incision longitudinally across the area of fluctuance over the 4 x 5 cm abscess cavity. The complex loculations were divided and excised as noted above. The wound was irrigated with copious amounts normal saline and Irrisept. It was packed with Irrisept soaked gauze. Post-Debridement Measurements and Additional Note: Post-Debridement Measurements/Treatme nt WC - Nurse 1 - General Ulcer Assessment Start: 10/22/24 10:02 Freq: Status: Active Protocol: SILAS Activity Type Activity Date Activity User E-sign Co-sign Detail Recorded Client Recorded Date Recorded By Document 10/22/24 10:06 DL [id number] 10/22/24 10:18 DL 10/22/24 10: (more content not included)... Normal [facility] Anaerobic cultureOrdered By: Manpreet Joshi on 10-22-2024 Bacteria identified Anaer cx Nom (Unsp spec) No anaerobic bacteria isolated. [facility] Gram stainOrdered By: Manpreet Joshi on 10-22-2024 Microscopic observation Gram stain Nom (Unsp spec) [facility] Culture, Anaerobic Any Sourc cynthia 10-06-2024 CUAN ONLY AEROBIC SWAB SENT. ANEROBES ORDERED. ANEROBIC GROWTH MAY BE INHIBITED DUE TO INCORRECT COLLECTION USED. RIGHT UPPER BACK No anaerobic bacteria isolated. Normal [facility] Comment on above: Performed By: #### M 100.1999, M100.3000, M100.4001 #### [facility] [address] [place], [place], [address] Wound Cultureon 10-04-2024 WC ONLY AEROBIC SWAB SENT. ANEROBES ORDERED. ANEROBIC GROWTH MAY BE INHIBITED DUE TO INCORRECT COLLECTION USED. RIGHT UPPER BACK Staphylococcus aureus Amount Growth 3+ Staphylococcus aureus: REACTION cefOXitin Susc Islt Doxycycline Islt HAY <=0.5 S Clindamycin Islt HAY 0.25 S Clindamycin.induced Susc Islt NEG Erythromycin Islt HAY <=0.25 S Gentamicin Islt HAY <=0.5 S Linezolid Islt HAY 2 S Moxifloxacin Islt HAY <=0.25 S Oxacillin Susc Islt 0.5 S Tetracycline Islt HAY <=1 S TMP SMX Islt HAY <=10 S Vancomycin Islt HAY 1 S Normal [facility] Comment on above: Performed By: #### M 100.1999, M100.3000, M100.4001 #### [facility] [address] [place], [address] Gram Stainon 10-03-2024 GS ONLY AEROBIC SWAB SENT. ANEROBES ORDERED. ANEROBIC GROWTH MAY BE INHIBITED DUE TO INCORRECT COLLECTION USED. RIGHT UPPER BACK Gram Stain 3+ White Blood Cells 3+ Gram positive cocci No Epithelial cells Normal [facility] Comment on above: Performed By: #### M 100.1999, M100.3000, M100.4001 #### [facility] [address] [place], [address] Anaerobic cultureOrdered By: Kyle Lucero on 10-02-2024 Bacteria identified Anaer cx Nom (Unsp spec) No anaerobic bacteria isolated. [facility] Gram stainOrdered By: Kyle oneal on 10-02-2024 Microscopic observation Gram stain Nom (Unsp spec) [facility] Endocrinology Visit Reporton 04-02-2024 Endocrinology Visit Report [facility] [address] [place] [address] OFFICE VISIT Date of Service: 04/02/24 MR#: [id number] Acct: [id number] Name: KAN SAENZ Rep #: [id number] : 1960 Provider: JUN garza Age/Sex: 63/M Location: [facility] [place] Status: Signed Intake Vital Signs 04/02/24 14:05 Height 5 ft 6 in Weight: 216 lb BMI 34.8 BP 127/81 H Blood Pressure Location Lt brachial Position Sitting Pulse 107 H Pulse Source Monitor Pulse Oximetry (%) 95 Oxygen Delivery Method room air Intake Visit Reasons: Diabetes Chief Complaint: establish care- diabetes Is patient in pain?: No Allergies No Known Allergies Allergy (Verified 04/02/24 14:02) Medications ???Medication ???Instructions ???Recorded ???Confirmed ???Type blood-glucose sensor (Dexcom G7 #3 ea 04/02/24 04/02/24 Rx Sensor device) glipizide 10 mg tablet 10 mg PO BID #60 tabs 04/02/24 04/02/24 Rx lisinopril 10 mg tablet 10 mg PO QDAY 04/02/24 04/02/24 History metformin 500 mg tablet,extended 1,000 mg (2 x 500 mg) PO BID #120 04/02/24 04/02/24 Rx release 24 hr tabs multivitamin with minerals-folic 1 tab PO ONCE 04/02/24 04/02/24 History acid 80 mcg chewable tablet (Centrum Adult 50 Plus) omega 2-mpa-pnl-fish oil 60 mg-90 1 cap PO QDAY 04/02/24 04/02/24 History mg-500 mg capsule (Fish Oil) pregabalin 300 mg capsule 300 mg PO BID 04/02/24 04/02/24 History semaglutide 0.25 mg or 0.5 mg (2 0.5 mg (0.736 mL) subcut QWEEK #3 04/02/24 04/02/24 Rx mg/3 mL) subcutaneous pen injector mL (Ozempic) simvastatin 20 mg tablet 20 mg PO QDAY 04/02/24 04/02/24 History PFSH Medical History (Updated 04/02/24 @ 15:33 by Natasha Oahra NP-[place]nn) Neuropathy Surgical History H/O hernia repair History of appendectomy History of ear, nose, and throat (ENT) surgery Previous back surgery Family History Father Diabetes Mother Myocardial infarction CVA (cerebral vascular accident) Social History Smoking Status: Never smoker alcohol intake: never substance use type: does not use what type of physical activity do you participate in: none HPI HPI Chief Complaint: establish care- diabetes Details: KAN SAENZ, is a 63 M who presents to the office today for evaluation and management of diabetes. Referred by PCP for uncontrolled blood sugars. Patient states he was diagnosed with prediabetes in 1997. Complications include neuropathy to bilateral lower extremities and retinopathy. He is currently taking metformin 500 mg BID with food. He has been on multiple diabetic medications in the past without significant improvement in control. He states that at one time he was on Byetta and victoza and blood sugar went so low it took a whole bottle of glucose tabs to bring my blood sugar back up. He is not routinely checking his blood sugars. A1C today is 13.5%, increased from recent. He is overdue for routine labs. BP controlled. He takes lisinopril 10 mg once daily. He takes a daily statin. He sees podiatry routinely. He takes pregabalin 300 mg BID for neuropathy. Denies any acute concerns. ROS Const Constitutional: No fatigue or weight change ENT ENT: No dizziness/vertigo Cardio Cardiology: No chest pain at rest, chest pain with exertion, shortness of breath or palpitations Musc Musculoskeletal: Positive for numbness (bilateral lower extremities) and tingling Neuro Neurology: Positive for numbness (bilateral lower extremities) and tingling Skin Skin: No wounds Endo Endocrine: No fatigue or weight change Exam Const General: cooperative, healthy appearing, comfortable and no acute distress Nutritional Appearance: obese Orientation: alert, awake and oriented x3 HENMT Head: normal to inspection Ears: hearing grossly normal bilaterally Nose: external nose normal Face and sinus: normal facial exam Eyes General: appearance normal, both eyes and all related structures Alignment and Position: alignment normal Sclera: sclerae normal Neck Neck: normal visual inspection Chest Chest palpation inspection: normal inspection of the chest Resp Effort Inspection: normal respiratory effort, able to speak in complete sentences, symmetric chest movement, normal respiratory pattern, no audible wheezes and no cough Auscultation: Bilateral: Clear to Auscultation Cardio Rate: regular rate Rhythm: regular rhythm Heart Sounds: S1 normal and S2 normal Bruits: no carotid bruits GI Inspection: obesity Musc Cervical Spine: normal cervical lordosis Thoracic/Lumbar Spine: thoracic and lumbar spi (more content not included)... Normal [facility] CNOVon 02-09-2024 CN Office Visit (URGCMA) KAN SAENZ ([id number]) 1960 M Date Time Provider Department 02/09/24 8:15 AM [facility] During your visit today, we recorded the following information about you: Temperature Pulse Respiration Blood pressure 98 degrees 98/minute 18/minute 130/84 Aura Tena APRN.[employer]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 02/10/2024 2:12 PM Signed Kan Saenz [id number] [facility] [id number] Age: [age] year old : 1960 (home) Encounter Date: 02/09/2024 Chief Complaint Ingrown Toenail (X yesterday noticed possible ingrown toenail left foot, big toe ) HPI Kan Saenz is a 63 year old male who presents for left great toe pain and redness. Pt reports hx of neuropathy, DM, HTN and dysmetabolic syndrome. He noticed redness of left great toe 5 days ago. He has been wrapping left great toe with large bandage and washing with peroxide. This morning removed bandage and had skin remove with bandage causing bleeding and exposure of nail. He reports having blood tinged slow oozing when bandage removed. He reports redness is unchanged from onset. Area is not painful per patient secondary to neuropathy. Denies fever, chills, body aches, L foot or ankle pain, foot or ankle swelling, red streaking, warmth, purulent or foul smelling drainage. Continues to bear weight without difficult. Tdap UTD. He previously has not seen podiatry. The history is provided by the patient and medical records. No english as a second language teacher was used. History PAST MEDICAL HISTORY Diagnosis Date Diabetes (HCC) Diarrhea Dysmetabolic syndrome X Essential hypertension, benign Other and unspecified hyperlipidemia Snoring Urinary calculus, unspecified Renal stones PAST SURGICAL HISTORY Procedure Laterality Date APPENDECTOMY COLONOSCOP W/ OR W/O [facility] SPEC 06/13/2006 Colonoscopy COLONOSCOP W/ OR W/O [facility] SPEC 11/22/2016 Colonoscopy COLONOSCOP W/ OR W/O [facility] SPEC 11/22/2016 Colonoscopy PAST SURGICAL HISTORY OF 06/2014 back surgery REMOVAL OF TONSILS,<12 Y/O Tonsillectomy REPAIR ING HERNIA,5+Y/O,REDUCIB L Hernia repair, inguinal ALLERGIES Patient has no known allergies. MEDICATIONS sulfamethoxazole-tri methoprim (BACTRIM DS) 800-160 mg per tablet Take 1 tablet by mouth every 12 hours. pregabalin (LYRICA) 75 mg capsule Take 75 mg by mouth twice daily. metFORMIN (GLUCOPHAGE) 1,000 mg tablet Take 1 tablet by mouth once daily. pioglitazone (ACTOS) 30 mg tablet Take 30 mg by mouth once daily. atorvastatin (LIPITOR) 10 mg tablet Take 10 mg by mouth once daily. lisinopril 10 mg tablet Take 1 tablet by mouth once daily. Blood-Glucose Meter (RELION PRIME) misc Meter Kit aspirin(BONI LOW STRENGTH 81 MG TAB) Take one(1) tablet every other day. MULTIVITAMIN,TX-IRON -MINERALS TAB Take one(1) tablet daily. naproxen (NAPROSYN) 500 mg tablet Take 1 tablet by mouth twice daily with meals. (Patient not taking: Reported on 02/09/2024) tiZANidine (ZANAFLEX) 4 mg tablet Take 1 tablet by mouth as needed. (Patient not taking: Reported on 02/09/2024) Point Comfort-3 Fatty Acids (FISH OIL) 500 mg cap Take 1 capsule by mouth once daily. lancets(SOFTCLIX LANCETS) Test blood sugars daily, 250.00, insulin (Patient not taking: Reported on 02/09/2024) No family history on file. Social History Tobacco Use Smoking status: Never Smokeless tobacco: Never Substance Use Topics Alcohol use: Yes Comment: rarely Drug use: No Review of Systems See HPI Vitals BP 130/84 Pulse 98 Temp 36.7 ?C (98 ?F) (Oral) Resp 18 SpO2 97% Physical Exam Physical Exam Constitutional: General: He is not in acute distress. Appearance: Normal appearance. He is well-developed and normal weight. He is not ill-appearing, toxic-appearing or diaphoretic. Comments: Sitting in exam room in no acute distress HENT: Head: Normocephalic. Mouth/Throat: Lips: [place]. Mouth: Mucous membranes are moist. Pharynx: Uvula midline. No pharyngeal swelling, oropharyngeal exudate or posterior oropharyngeal erythema. Cardiovascular: Rate and Rhythm: Normal rate and regular rhythm. Pulses: Dorsalis pedis pulses are 2+ on the right side and 2+ on the left side. Posterior tibial pulses are 2+ on the right side and 2+ on the left side. Heart sounds: S1 normal and S2 normal. Pulmonary: Effort: Pulmonary effort is normal. No accessory muscle usage or respiratory distress. Breath sounds: Normal breath sounds and air entry. No stridor, decreased air movement or transmitted upper airway sounds. No decreased breath sounds, wheezing, rhonchi or rales. Musculoskeletal: Right foot: Normal range of motion. No deformity, bunion, foot drop or prominent metatarsal heads. Left foot: Normal range of motion. No deformity, bunion, foot drop or prominent metatarsal heads. Feet: Feet: Right foot: Skin integrity: No ulce (more content not included)... Normal [facility] Bacteria identified Cx Nom ( Wound)Ordered By: Dr. Pickett on 07-15-2022 Wound Culture Meth. resistant Staph. aureus [facility] Gram stain for investigation of transfusion reactionOrdered By: Dr. Pickett on 07-14-2022 Microscopic observation Gram stain Nom (Unsp spec) [facility] Comp Metabolic Panelon 10-31 ALP enzyme act/vol 51 U/L Normal 38-126 [facility] Comment on above: Performed By: #### H A1C2, CMP3 ####[facility] [place] [address] ALT enzyme act/vol 56 U/L Normal 13-69 [facility] Comment on above: Performed By: #### H A1C2, CMP3 ####[facility] [place] [address] Anion gap 3 molar conc 12 Normal [facility] Comment on above: Performed By: #### H A1C2, CMP3 ####[facility] [place] [address] AST enzyme act/vol 25 U/L Normal 15-46 [facility] Comment on above: Performed By: #### H A1C2, CMP3 ####[facility] [place] [address] Bilirubin mass conc 0.8 mg/dL Normal 0.2-1.3 [facility] Comment on above: Performed By: #### H A1C2, CMP3 ####[facility] [place] [address] Calcium mass conc 9.5 mg/dL Normal 8.4-10.4 [facility] Comment on above: Performed By: #### H A1C2, CMP3 ####[facility] [place] [address] CO2 molar conc 26 mmol/L Normal 22-30 [facility] Comment on above: Performed By: #### H A1C2, CMP3 ####[facility] [place] [address] Creatinine mass conc 0.75 mg/dL Normal 0.52-1.25 [facility] Comment on above: Performed By: #### H A1C2, CMP3 ####[facility] [place] [address] GFR/1.73 sq M predicted among blacks MDRD vol rate/area (S/P/Bld) mL/min/{1.73_m2} Normal >60 [facility] Comment on above: Performed By: #### H A1C2, CMP3 ####[place] [address] [place] [address] GFR/1.73 sq M predicted among non-blacks MDRD vol rate/area (S/P/Bld) mL/min/{1.73_m2} Normal >60 [facility] Comment on above: Result Comment: Sour ce- MDRD equation with creatinine calibration to IDMS(NKDEP) eGFR not recommended for drug dose adjustment Performed By: #### H A1C2, CMP3 ####[facility] [address] [place] [address] Glucose mass conc 295 mg/dL High 70-100 [facility] Comment on above: Performed By: #### H A1C2, CMP3 ####[place] [address] [place] [address] Protein mass conc 7.3 g/dL Normal 6.3-8.2 [facility] Comment on above: Performed By: #### H A1C2, CMP3 ####[place] [address] [place] [address] Urea nitrogen mass conc 16 mg/dL Normal 7-20 [facility] Comment on above: Performed By: #### H A1C2, CMP3 ####[place] [address] [place] [address] Potassium molar conc 4.8 mmol/L Normal 3.5-5.1 [facility] Comment on above: Performed By: #### H A1C2, CMP3 ####[place] [address] [place] [address] Albumin mass conc 4.4 g/dL Normal 3.5-5.0 [facility] Comment on above: Performed By: #### H A1C2, CMP3 ####[place] [address] [place] [address] Chloride molar conc 100 mmol/L Normal 98-107 [facility] Comment on above: Performed By: #### H A1C2, CMP3 ####[facility] [place] [address] Sodium molar conc 137 mmol/L Normal 137-145 [facility] Comment on above: Performed By: #### H A1C2, CMP3 ####[facility] [place] [address] Hemoglobin A1Con 10-31-2017 Glucose mass conc 229 mg/dL Normal [facility] Comment on above: Performed By: #### H A1C2, CMP3 ####[facility] [place] [address] Hemoglobin A1c/Hemoglobin.total mass fraction (Bld) 9.6 % High 4.0-5.7 [facility] Comment on above: Result Comment: --Hg bA1C levels may not be accurate in patients who haverenal disease, received recent blood transfusions, are anemic,or who have dyshemoglobinemia. Performed By: #### H A1C2, CMP3 ####[facility] [place] [address] Vital Signs Date Time Vital Sign Value Performing Clinician Facility 12-10-2024 10:30-0400 Body temperature 97.9 [degF] Dr. Kyle Lucero DO Work Phone: [facility] 12-10-2024 10:30-0400 Diastolic blood pressure 81 mm[Hg] Dr. Kyle Lucero DO Work Phone: [facility] 12-10-2024 10:30-0400 Heart rate 96 /min Dr. Kyle Lucero DO Work Phone: [facility] 12-10-2024 10:30-0400 Respiratory rate 14 /min Dr. Kyle Lucero DO Work Phone: [facility] 12-10-2024 10:30-0400 Systolic blood pressure 130 mm[Hg] Dr. Kyle Lucero DO Work Phone: [facility] 11-26-2024 09:44-0400 Body temperature 97.3 [degF] Dr. Kyle Lucero DO Work Phone: [facility] 11-26-2024 09:44-0400 Diastolic blood pressure 92 mm[Hg] Dr. Kyle Lucero DO Work Phone: [facility] 11-26-2024 09:44-0400 Heart rate 84 /min Dr. Kyle Lucero DO Work Phone: [facility] 11-26-2024 09:44-0400 Respiratory rate 16 /min Dr. Kyle Lucero DO Work Phone: [facility] 11-26-2024 09:44-0400 Systolic blood pressure 132 mm[Hg] Dr. Kyle Lucero DO Work Phone: [facility] 10-29-2024 08:53-0400 Body mass index (BMI) [Ratio] 34.9 kg/m2 Dr. Kyle Lucero DO Work Phone: [facility] 10-29-2024 08:53-0400 Body temperature 97.6 [degF] Dr. Kyle Lucero DO Work Phone: [facility] 10-29-2024 08:53-0400 Diastolic blood pressure 90 mm[Hg] Dr. Kyle Lucero DO Work Phone: [facility] 10-29-2024 08:53-0400 Heart rate 104 /min Dr. Kyle Lucero DO Work Phone: [facility] 10-29-2024 08:53-0400 Respiratory rate 16 /min Dr. Kyle Lucero DO Work Phone: [facility] 10-29-2024 08:53-0400 Systolic blood pressure 122 mm[Hg] Dr. Kyle Lucero DO Work Phone: [facility] 10-22-2024 10:06-0400 Body height 167.[address] Kyle Lucero DO Work Phone: [facility] 10-22-2024 10:06-0400 Body weight 98.[address] Kyle Lucero DO Work Phone: [facility] 02-09-2024 08:44-0500 Body temperature 98.01 [degF] Aura Heising LINING VAMPER.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 Work Phone: [facility] 02-09-2024 08:44-0500 Diastolic blood pressure 84 mm[Hg] Aura Heising LINING VAMPER.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 Work Phone: [facility] 02-09-2024 08:44-0500 Heart rate 98 /min Aura Heising LINING VAMPER.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 Work Phone: [facility] 02-09-2024 08:44-0500 Respiratory rate 18 /min Aura Heising LINING VAMPER.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 Work Phone: [facility] 02-09-2024 08:44-0500 SaO2% (BldA) [Mass fraction] 97 % Aura Heising [employer]ING VAMPER.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 Work Phone: [facility] 02-09-2024 08:44-0500 Systolic blood pressure 130 mm[Hg] Aura Heising LINING VAMPER.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 Work Phone: [facility] 06-03-2022 09:03-0500 Body temperature 98.71 [degF] Cynthia Sekerak PA-C Work Phone: [facility] 06-03-2022 09:03-0500 Body weight 90.27 kg Cynthia Sekerak PA-C Work Phone: [facility] 06-03-2022 09:03-0500 Diastolic blood pressure 76 mm[Hg] Cynthia Sekerak PA-C Work Phone: [facility] 06-03-2022 09:03-0500 Heart rate 122 /min Cynthia Sekerak PA-C Work Phone: [facility] 06-03-2022 09:03-0500 Respiratory rate 18 /min Cynthia Sekerak PA-C Work Phone: [facility] 06-03-2022 09:03-0500 SaO2% (BldA) [Mass fraction] 97 % Cynthia Guan PA-C Work Phone: [facility] 06-03-2022 09:[id number] Systolic blood pressure 112 mm[Hg] Cynthia Guan PA-C Work Phone: [facility] Encounters Encounter Date Encounter Type Care Provider Facility Start: 01-28-2025 ambulatory [facility] Facility: [facility] Start: 01-28-2025 End: 01-28-2025 ambulatory [facility] Facility:[facility] Start: 01-07-2025 ambulatory [facility] Facility: [facility] Start: 12-11-2024 Non-patient / Non-visit Dr. Manpreet ash MD -[facility] Start: 12-10-2024 End: 01-01-[address] [facility] Work Phone: Start: 12-10-2024 End: 01-01-[address] Kyle Lucero DO Work Phone[facility] Start: 11-26-2024 End: 12-02-[address] Kyle Lucero DO Work Phone[facility] Start: 11-26-2024 End: 12-02-[address] [facility] Work Phone: Start: 11-12-2024 ambulatory [facility] Facility: [facility] Start: 11-12-2024 Non-patient / Non-visit Dr. Manpreet ash MD -[facility] Start: 10-29-2024 [facility]-patient / [facility] Start: 10-29-2024 End: 11-01-[address] Kyle Lucero DO Work Phone[facility] Start: 10-29-2024 End: 11-01-[address] [facility] Work Phone: Start: 10-23-2024 Non-patient / Non-visit Dr. Manpreet ash MD -[facility] Start: 10-22-2024 ambulatory Manpreet Joshi Facility:[facility] Start: 10-22-2024 Non-patient / Non-visit Dr. Manpreet ash MD -[facility] Start: 10-02-2024 End: 10-02-[address] Kyle Lucero DO Work Phone: -[facility] Spec[facility] Start: 10-02-2024 End: 10-02-[address] Kyle Lucero DO -[facility] Specimen Work Phone: Start: 10-02-2024 End: 10-02-2024 ambulatory Kyle Lucero Facility:[facility] Start: 07-11-2024 ambulatory Kyle Lucero Facility: [facility] Start: 04-02-2024 End: 04-02-2024 ambulatory Kyle Lucero Facility:[facility] Start: 02-09-2024 End: 02-09-2024 ambulatory KATIE EM Facility:[facility] Start: 02-09-2024 End: 02-09-2024 Office outpatient visit 15 minutes Aura Tena APRN.CNP Work Phone: [employer] [facility] Comment on above: Ingrown toenail (Diamante tanisha Dx); Pain of toe of left foot Start: 01-17-2024 End: 02-17-2024 Release of Information Provider Not In System [facility] Historical Mapping Start: 01-17-2024 End: 02-17-2024 [facility] Provider Not In System [facility] Histor ical Mapping Start: 07-13-2022 End: 07-13-2022 ambulatory [facility] Work Phone: Start: 07-13-2022 End: 07-13-2022 Patient encounter procedure [facility]-Laboratory, Specimen Start: 06-03-2022 End: 06-03-2022 Office outpatient new 30 minutes Cynthia Guan PA-C Work Phone: [employer] [facility] Comment on above: TMJ dysfunction (Diamante tanisha Dx) Start: 06-12-2020 End: 06-12-2020 Orders Only Katie Sims Work Phone: [facility] Start: 10-31-2017 Patient encounter Sandhya [facility] Procedures Date Procedure Procedure Detail Performing Clinician Start: 10-22-[address] Kyle Lucero DO Work Phone: Start: 10-22-2024 Gram stain microscopy D dion Lucero DO Work Phone: Start: 10-22-2024 End: 10-22-2024 Microbial culture, routine Dr. Kyle lee DO Work Phone: Start: 10-02-[address] Kyle Lucero DO Work Phone: Start: 10-02-2024 Gram stain microscopy D dion Lucero DO Work Phone: Start: 10-02-2024 End: 10-02-2024 Microbial culture, routine Dr. Kyle lee DO Work Phone: Start: 11-22-2016 [facility] Cynthia manzo PA-C Work Phone: Investigation of transfusion reaction Microbial culture, routine Plan of Treatment Date Care Activity Detail Author Start: 2037 Respiratory Syncytia l Virus Immunization: Risk, 60-74 Risk, or 75+ (1 - 1-dose 75+ series) Respiratory Syncytial Virus Immunization: Risk, 60-74 Risk, or 75+ (1 - 1-dose 75+ series) [facility] Start: 2037 RSV Vaccine (1 - 1-d ose 75+ series) RSV Vaccine (1 - 1-dose 75+ series) [facility] Start: 05-24-2028 Urine microalbumin profile DTa P,Tdap,Td Vaccine (3 - Td or Tdap) [facility] Start: 12-04-2023 Covid-19 Vaccine ( season) Covid-19 Vaccine ( season) [facility] Start: 12-04-2023 Influenza vaccination Influenza Vacc ine (#1) [facility] Start: 06-04-2023 BP CONTROLLED (<130/80) BP CONTROLLE D (<130/80) [facility] Start: 04-04-2022 DEPRESSION ASSESSMENT DEPRESSION ASS ESSMENT [facility] Start: 12-03-2021 Influenza vaccination INFLUENZA (#1) [facility] Start: 11-22-2021 Colonoscopy COLONOSCOPY [facility] Start: 11-22-2021 COLORECTAL CANCER SCREENING COLORECTAL CANCER SCREENING [facility] Start: 11-22-2021 Screening for malign ant neoplasm of colon [facility] Start: 12-04-2019 Influenza vaccinatio n given Sequential Influenza Vaccine (#1) [facility] Start: 01-31-2018 Hemoglobin A1c measurement HbA1C [facility] Start: 10-09-2017 PROSTATE CANCER SCRE ENING DISCUSSION PROSTATE CANCER SCREENING DISCUSSION [facility] Start: 10-09-2017 Prostate specific an tigen measurement Prostate Cancer Screening Discussion [facility] Start: 12-27-2013 3 comp foot exam completed DIABETIC FOOT EXAM [facility] Start: 12-27-2013 Diabetic foot examination Diabetic F oot Exam [facility] Start: 06-17-2013 Hepatitis B screening URINE AL BUMIN:CREATININE RATIO [facility] Start: 06-17-2013 Hepatitis B surface antibody level LDL CHOLESTEROL [facility] Start: 05-13-2013 Hemoglobin A1c/Hemoglobin.total in Blood HBA1C [facility] Start: 09-12-2012 Glaucoma screening Dilated Retinal E xam [facility] Start: 09-12-2012 Hepatitis C antibody , confirmatory test DILATED RETINAL EXAM [facility] Start: 2012 Administration of he rpes zoster vaccine Zoster Vaccines (1 of 2) [facility] Start: 2012 Screening for malign ant neoplasm of colon [facility] Start: 2012 SHINGRIX VACCINE (1 of 2) SHINGRIX V ACCINE (1 of 2) [facility] Start: 03-06-2008 PNEUMOCOCCAL (2 - PCV) PNEUMOCOCCAL (2 - PCV) [facility] Start: 03-06-2008 Pneumococcal vaccination Pneum ococcal Vaccine (2 of 2 - PCV) [facility] Start: 09-05-2007 COLOGUARD (FIT-DNA) COLOGUARD (FIT-D NA) [facility] Start: 09-05-[address] COLONOGRAPHY [facility] Start: 09-05-2007 FECAL OCCULT BLOOD FECAL OCCULT BLOO D [facility] Start: 09-05-2007 Screening for malign ant neoplasm of colon [facility] Start: 09-05-2007 [facility] Start: 09-08-2004 Urine microalbumin profile DTAP,TDAP ,TD (1 - Tdap) [facility] Start: 1980 ANNUAL PCP TEAM NETEZZA DEVELOPER TAMMY DISEASE VISIT ANNUAL PCP TEAM CHRONIC DISEASE VISIT [facility] Start: 1980 Anxiety Screening Anxiety Screening [facility] Start: 1980 BP Controlled (<130/80) BP Controlle d (<130/80) [facility] Start: 1980 Depression Screening Depression Scre ening [facility] Start: 1980 Hepatitis C antibody , confirmatory test Hepatitis C Screening [facility] Start: 1980 HEPATITIS C SCREENING HEPATITIS C SC [facility] Start: 1980 Hepatitis C screening Hepatitis C [facility] Start: 1980 HIV SCREENING HIV SCREENING [facility] Start: 1980 HIV screening HIV Screening [facility] Start: 1978 COVID-19 Vaccine (1 of 2) COVID-19 V accine (1 of 2) [facility] Start: 1977 HIV screening HIV Screening [facility] Start: 1974 Adolescent depressio n screening assessment Depression Screening (PHQ9) [facility] Start: 1974 Depression screening using PHQ-9 (Patient Health Questionnaire 9) score Depression Screening/Follow-Up (PHQ-2/9) [facility] Start: 1972 Albumin DL <= 20 mg/ L (U) [Mass/Vol] Urine Microalbumin [facility] Start: 1972 Diabetic foot examination Foot Exam [facility] Start: 1972 Ophthalmic examinati on and evaluation Ophthalmology Exam [facility] Start: 1965 History and physical examination, annual for health maintenance Wellness Visit [facility] Start: 03-06-1963 COVID-19 VACCINE (#1) COVID-19 VACCI NE (#1) [facility] Start: 1962 HbA1c (Bld) [Mass fraction] A1C [facility] Start: 1962 Prostate specific an tigen measurement PSA Level [facility] Start: 1962 Screening for malign ant neoplasm of colon [facility] Start: 1962 Tetanus vaccination Tetanus: Every 1 0yrs [facility] Immunizations Immunization Date Immunization Notes Care Provider Fa yolanda 05-24-2018 tetanus toxoid, redu zeynep diphtheria toxoid, and acellular pertussis vaccine, adsorbed Aura Tena APRN.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 Work Phone: [facility] 02-13-2013 influenza virus vacc ine, unspecified formulation Cynthia Guan PA-C Work Phone: [facility] Work Phone: 03-06-2007 influenza virus vacc ine, unspecified formulation Cynthia Guan PA-C Work Phone: [facility] Work Phone: 03-06-2007 pneumococcal polysaccharide vaccine, 23 valent Cynthia Guan PA-C Work Phone: [facility] Work Phone: 09-07-2004 tetanus and diphther ia toxoids, not adsorbed, for adult use Cynthia Guan PA-Housekeep Work Phone: [facility] Work Phone: 09-07-2004 tetanus toxoid, redu zeynep diphtheria toxoid, and acellular pertussis vaccine, adsorbed Aura Tena APRN.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 Work Phone: [facility] Payers Date Payer Category Payer Medicare [id number] 2024 Self-pay 2023 [facility] [facility] [id number] 2023-Present [phone] [address] [place] [address] PPO [id number] 2023 Private Health Insurance [id number] Unknown [id number] Unknown [id number] Unknown [id number] .462 Unknown [id number] .462 Unknown [id number] .462 Unknown [id number] .462 Unknown [id number] .462 Unknown [id number] [id number] .462 Unknown [id number] [id number] .462 Unknown [id number] .462 Unknown [id number] [id number] .462 Unknown [id number] [id number] .462 Unknown [id number] .462 Unknown [id number] .462 Social History Date Type Detail Facility Start: 07-07-2015 End: 10-22-2024 Tobacco smoking status NHIS Never smoker [facility] Work Phone: Start: 07-07-2015 End: 05-13-2021 Alcohol intake Current non-drinker of alcohol (finding) [facility] Start: 1960 Sex Assigned At Not on file [facility] Start: 11-23-2011 End: 02-09-2024 Tobacco use and exposure Smokeless tobacco non-user [facility] Work Phone: Start: 11-22-2016 End: 02-09-2024 Alcohol intake Current drinker of alcohol (finding) [facility] Start: 11-22-2016 Alcohol Comment rarely [facility] Start: 1960 Sex Assigned At Male [facility] Start: 11-11-2014 End: 02-09-2024 History of Social function [facility] Start: 11-11-2014 End: 02-09-2024 Tobacco use panel [facility] Procedure Code Equipment Code Equipment Origin al Text Equipment Identifier Dates Test blood sugar s daily, 250.00, insulin [id number] Start: 06-14-2007 Comment on above: Test blood sugars da natasha, 250.00, insulin Clinical Notes 04-26-2011 to 12-11-2024 Note Date & Type Note Facility 12-11-2024 Progress note Note Date/Time December 11, 2024 10:04am [facility] [address] [place] [address] Progress Note - Wound Care 12/11/24 1001 MR#: [id number] Acct: [id number] Name: KAN SAENZ Rep #:[id number] : 1960 64 From: Manpreet Joshi MD PCP: Dr. Kyle Lucero, DO Status:REG RCR Location: History of Present Illness Date of Service: 12/10/24 History of Wound: HPI 22 October 2024: The patient is a 64-year-old male presenting with an abscess on the right upper back. Approximately 4 to 5 weeks ago, the patient noticed a small red pimple on the right upper back, which progressed into an abscess. The abscess was initially incised and drained by Dr. Lucero, but it continued to drain and required further intervention. The patient has a history of diabetes mellitus with a significantly elevated A1cof 12.6, indicating poor glycemic control. He has been prescribed a new injectable medication for diabetes management, which he plans to start soon. ROS: - Integumentary: Reports abscess on right upper back - Endocrine: Reports diabetes mellitus with elevated A1c Attestation: Documentation on this patient encounter was supported using ambient scribe technology/ voice AI technology. The patient consented to recording for the purpose of documenting the encounter. Provider reviewed content of the generatednote prior to signature. Subjective Subjective 29 October 2024: Patient presents 1 week status post incision and drainage of right upper back abscess The patient is a 64-year-old male presenting with a wound infection in the context of diabetes mellitus. The patient has been experiencing elevated blood glucose levels, with a recent A1c of 13, necessitating the initiation of insulintherapy. The wound is described as deep, measuring approximately 4 x 4 x 3 cm, extending to the muscle and fascia, but without tunneling. The infection is currently controlled with antibiotics, specifically Bactrim, which was prescribed to address a culture-confirmed MSSA infection. The patient has been advised to maintain blood glucose control to facilitate wound healing. The wound care regimen includes regular irrigation and packing, with dressing changes recommended twice daily. ROS: - Endocrine: Reports elevated blood glucose levels, A1c of 13. - Integumentary: Reports deep wound, no tunneling, down to muscle and fascia. Attestation: Documentation on this patient encounter was supported using ambient scribe technology/ voice AI technology. The patient consented to recording for the purpose of documenting the encounter. Provider reviewed content of the generatednote prior to signature. 12 Nov 2024: Doing well overall. Finished his antibiotics. Doing well with wound care. 26 November 2024: Doing well overall. Has not been checking blood sugar though. Reports good dressing changes. CURRENT ENCOUNTER, 10 Dec 2024: Patient doing well overall and is making some improvements with his wound. The wound is now 3 x 0.7 cm only 1 cm deep Objective Data Objective Data Vital Signs: Vital Signs Temp Pulse Resp BP 97.9 F 96 14 130/81 H 12/10/24 10:30 12/10/24 10:30 12/10/24 10:30 12/10/24 10:30 Charges/Coding Procedures Integumentary 111xxx-113xx: [id number] Hannah subq tissue 20 sq cm/< Physical Exam Narrative - Integumentary: More superficial wound and without tunneling, down to SUBQ now,measuring approximately 3 x 0.7 cm x 1 cm. Healthy granulation tissue at the base , no purulence Const alert and oriented x3 Debridement Note Debridement Note Wound debrided: Right upper back wound Laterality: Right Wound Grade/Stage: Stage III Type of Debridement: Excisional debridement Anesthesia Used: 4% Lidocaine Solution Depth: in the subcutaneous layer Percentage of wound debrided: 100 Instrument Used: 7mm curette Tissue Removed: Fibrinous exudate Severity: Fat Layer Exposed Amount of bleeding with debridement: Mild Bleeding Controlled with: Pressure Patient tolerated procedure: Patient tolerated procedure well Post-Debridement Measurements and Additional Note: Post-Debridement Measurements/Treatment SUZI - Nurse 1 - General Ulcer Assessment Start: 12/10/24 10:30 Freq: Status: Active Protocol: SILAS Activity Type Activity Date Activity User E-sign Co-sign Detail Recorded Client Recorded Date Recorded By Document 12/10/24 10:30 ML [id number] 12/10/24 10:37 ML 12/10/24 10:30 WC - Today's Visit Information Type of service Follow-up Visit (Physician/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 ) Arrival Mode Ambulatory Transfer Assistance None Patient Identification Verified (Name & Yes ) Patient Requires Transmission-Based No Precautions Vital Signs Temperature (97.8 F-99.1 F) 97.9 F Temperature Source Temporal Pulse Rate (60-100) 96 Pulse Location Monitor Respiratory Rate (12-18) 14 Respiratory rate source Monitor Blood Pressure (90/60-120/80) 130/81 H Blood Pressure Mean (mm Hg) 97 Source Monitor Position Sitting Blood Pressure Location Right Arm History Since Last Visit- (Skip if this is Patient's initial visit) Have you changed medications since your No last visit? Any new allergies or adverse reactions No Had a fall/change in ADL's that may No increase risk of falls Signs or symptoms of abuse and/or No neglect since last visit Have you been in the hospital since your No last visit? Has dressing in place as prescribed Yes Has compression in place as prescribed N/A Has offloadiing in place as prescribed N/A Experienced any changes in pain level or No management Pain Scale: 0-10 Numeric Is Patient Pain Free? Yes - Nurse 1 - General Ulcer Measurement Start: 12/10/24 10:30 Freq: Status: Active Protocol: Activity Type Activity Date Activity User E-sign Co-sign Detail Recorded Client Recorded Date Recorded By Document 12/10/24 10:30 ML [id number] 12/10/24 10:37 ML 12/10/24 10:30 Wound Center Nurse 1 #1 Astrid Valera -Current Size (cm) - Length 2 -Current Size (cm) - Width 0.5 -Current Size (cm) - Depth 0.5 -Total Square Cm 1.0 -Exudate Amt Medium -Exudate Type Serosanguineous -Wound Margin Distinct, Outline Attached -Granulation Amt Medium (34-66%) -Slough/Fibrin Yes -Necrosis Amt Medium (34-66%) -Necrotic Tissue Type Adherent Slough -Texture (Yari-wound Skin Appearance) Assessed -Moisture (Yari-wound Skin Appearance) Assessed -Color (Yari-wound Skin Appearance) Assessed -Temperature (Yari-wound Skin No Abnormality Appearance) (Pt Warm) -Tenderness on Palpation (Yari-wound No Skin Appearance) -Ulcer Cleansing Rinsed/ Irrigated with Saline -Foul Odor after Cleansing No -Anesthetic Used 5% Lidocaine Gel - Nurse 2 - General Ulcer CM Notes Start: 12/10/24 10:30 Freq: Status: Active Protocol: Activity Type Activity Date Activity User E-sign Co-sign Detail Recorded Client Recorded Date Recorded By Document 12/10/24 11:08 SEB [id number] 12/10/24 11:08 12/10/24 11:08 Wound Center Nurse 2 -Time 11:08 -Correct Patient Yes -Correct Side, Site, Position Yes -Correct Procedure Yes -Procedure Performed Yes -Type of Procedure Debridement -Clinical Debridement Subcutaneous -Tissue Removed Subcutaneous -Post Debridement (cm) - Length 3.0 -Post Debridement (cm) - Width 0.7 -Post Debridement (cm) - Depth 1.0 -Total Square (Post) (cm) 2.10 -Area of Debridement (cm) - Length 3.0 -Area of Debridement (cm) - Width 0.7 -Total Square (Area) (cm) 2.10 -Tunneling No -Undermining/Tunneling No -Circular Undermining No -Wound/Ulcer Outcome Not Healed -Ulcer Cleansing Rinsed/ Irrigated with Saline -Foul Odor after Cleansing No -Bioengineered Tissue No -Bleeding Controlled with Pressure -Treatment Response Procedure Tolerated Well -Offloading No -Debridement - Subq, 1st 20sq cm Yes Pain Scale: 0-10 Numeric Is Patient Pain Free? Yes - Nurse 3 - General Ulcer D/C NN Start: 12/10/24 10:30 Freq: Status: Active Protocol: Activity Type Activity Date Activity User E-sign Co-sign Detail Recorded Client Recorded Date Recorded By Document 12/10/24 11:16 KW [id number] 12/10/24 11:17 12/10/24 11:16 Wound Care Center Nurse 3 #1 R Soulder -Ulcer Cleansing Rinsed/ Irrigated with Saline -Primary Dressing Applied Aquacel AG 2x2 -Primary Dressing Covered/Secured with Dry Gauze, Secured with Tape -Aquacel AG 2x2 1 Pain Scale: 0-10 Numeric Is Patient Pain Free? Yes WC - Visit Discharge Discharge Condition Stable Ambulatory Status Ambulatory Transportation Private Auto Medication Reconcilliation completed & No provided to patient/care provider Clinical Summary of Care Provided Yes Assessment/Plan Assessment/Plan (1) Wound, open, back: CODE(S): S21.209A - Unspecified open wound of unspecified back wall of thorax without penetration into thoracic cavity, initial encounter PLAN: Continue Aqaucel Ag dressing changes daily with 2 week f/u in the WCC (discussed once piece in, one piece out) Continue wound care and tight blood sugar control 12/11/24 1004 <Electronically signed by Manpreet Joshi MD> Cosigner Signature (if applicable): CC: ~ Signed [facility] Work Phone: [phone] 738-312809-09-2025 Progress note [facility] [address] [place] [address] Progress Note - Wound Care 12/11/24 1001 MR#: [id number] Acct: [id number] Name: KAN SAENZ Rep #:[id number] : 1960 64 From: Manpreet Joshi MD PCP: Dr. Kyle Lucero, DO Status:REG RCR Location: History of Present Illness Date of Service: 12/10/24 History of Wound: HPI 22 October 2024: The patient is a 64-year-old male presenting with an abscess on the right upper back. Approximately4 to 5 weeks ago, the patient noticed a small red pimple on the right upper back, which progressed into an abscess. The abscess was initially incised and drained by Dr. Lucero, but it continued to drain and required further intervention. The patient has a history of diabetes mellitus with a significantly elevated A1cof 12.6, indicatingpoor glycemic control. He has been prescribed a new injectable medication for diabetes management, which he plans to start soon. ROS: - Integumentary: Reports abscess on right upper back - Endocrine: Reports diabetes mellitus with elevated A1c Attestation: Documentation on this patient encounter was supported using ambient scribe technology/ voice AI technology. The patient consented to recording for the purpose of documenting the encounter. Provider reviewed content of the generatednote prior to signature. Subjective Subjective 29 October 2024: Patient presents 1 week status post incision and drainage of right upper back abscess The patient is a 64-year-old male presenting with a wound infection in the context of diabetes mellitus. The patient has been experiencing elevated blood glucose levels, with a recent A1c of 13, necessitating the initiation of insulintherapy. The wound is described as deep, measuring approximately 4 x 4 x 3 cm, extending to the muscle and fascia, but without tunneling. The infection is currently controlled with antibiotics, specifically Bactrim, which was prescribed to address a culture-confirmed MSSA infection. The patient has been advised to maintain blood glucose control to facilitate wound healing. The wound care regimen includes regular irrigation and packing, with dressing changes recommended twice daily. ROS: - Endocrine: Reports elevated blood glucose levels, A1c of 13. - Integumentary: Reports deep wound, no tunneling, down to muscle and fascia. Attestation: Documentation on this patient encounter was supported using ambient scribe technology/ voice AI technology. The patient consented to recording for the purpose of documenting the encounter. Provider reviewed content of the generatednote prior to signature. 12 Nov 2024: Doing well overall. Finished his antibiotics. Doing well with wound care. 26 November 2024: Doing well overall. Has not been checking blood sugar though. Reports good dressing changes. CURRENT ENCOUNTER, 10 Dec 2024: Patient doing well overall and is making some improvements with his wound. The wound is now 3 x 0.7cm only 1 cm deep Objective Data Objective Data Vital Signs: Vital Signs Temp Pulse Resp BP 97.9 F 96 14 130/81 H 12/10/24 10:30 12/10/24 10:30 12/10/24 10:30 12/10/24 10:30 Charges/Coding Procedures Integumentary 111xxx-113xx: [id number] Hannah subq tissue 20 sq cm/< Physical Exam Narrative - Integumentary: More superficial wound and without tunneling, down to SUBQ now,measuring approximately 3 x 0.7 cm x 1 cm. Healthy granulation tissue at the base , no purulence Const alert and oriented x3 Debridement Note Debridement Note Wound debrided: Right upper back wound Laterality: Right Wound Grade/Stage: Stage III Type of Debridement: Excisional debridement Anesthesia Used: 4% Lidocaine Solution Depth: in the subcutaneous layer Percentage of wound debrided: 100 Instrument Used: 7mm curette Tissue Removed: Fibrinous exudate Severity: Fat Layer Exposed Amount of bleeding with debridement: Mild Bleeding Controlled with: Pressure Patient tolerated procedure: Patient tolerated procedure well Post-Debridement Measurements and Additional Note: Post-Debridement Measurements/Treatment WC - Nurse 1 - General Ulcer Assessment Start: 12/10/24 10:30 Freq: Status: Active Protocol: WC.LIYAH Activity Type Activity Date Activity User E-sign Co-sign Detail Recorded Client Recorded Date Recorded By Document 12/10/24 10:30 ML [id number] 12/10/24 10:37 ML 12/10/24 10:30 - Today's Visit Information Type of service Follow-up Visit (Physician/[employer]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 ) Arrival Mode Ambulatory Transfer Assistance None Patient Identification Verified (Name & Yes ) Patient Requires Transmission-Based No Precautions Vital Signs Temperature (97.8 F-99.1 F) 97.9 F Temperature Source Temporal Pulse Rate (60-100) 96 Pulse Location Monitor Respiratory Rate (12-18) 14 Respiratory rate source Monitor Blood Pressure (90/60-120/80) 130/81 H Blood Pressure Mean (mm Hg) 97 Source Monitor Position Sitting Blood Pressure Location Right Arm History Since Last Visit- (Skip if this is Patient's initial visit) Have you changed medications since your No last visit? Any new allergies or adverse reactions No Had a fall/change in ADL's that may No increase risk of falls Signs or symptoms of abuse and/or No neglect since last visit Have you been in the hospital since your No last visit? Has dressing in place as prescribed Yes Has compression in place as prescribed N/A Has offloadiing in place as prescribed N/A Experienced any changes in pain level or No management Pain Scale: 0-10 Numeric Is Patient Pain Free? Yes - Nurse 1 - General Ulcer Measurement Start: 12/10/24 10:30 Freq: Status: Active Protocol: Activity Type Activity Date Activity User E-sign Co-sign Detail Recorded Client Recorded Date Recorded By Document 12/10/24 10:30 ML [id number] 12/10/24 10:37 ML 12/10/24 10:30 Wound Center Nurse 1 #1 R Michaeler -Current Size (cm) - Length 2 -Current Size (cm) - Width 0.5 -Current Size (cm) - Depth 0.5 -Total Square Cm 1.0 -Exudate Amt Medium -Exudate Type Serosanguineous -Wound Margin Distinct, Outline Attached -Granulation Amt Medium (34-66%) -Slough/Fibrin Yes -Necrosis Amt Medium (34-66%) -Necrotic Tissue Type Adherent Slough -Texture (Yari-wound Skin Appearance) Assessed -Moisture (Yari-wound Skin Appearance) Assessed -Color (Yari-wound Skin Appearance) Assessed -Temperature (Yari-wound Skin No Abnormality Appearance) (Pt Warm) -Tenderness on Palpation (Yari-wound No Skin Appearance) -Ulcer Cleansing Rinsed/ Irrigated with Saline -Foul Odor after Cleansing No -Anesthetic Used 5% Lidocaine Gel - Nurse 2 - General Ulcer CM Notes Start: 12/10/24 10:30 Freq: Status: Active Protocol: Activity Type Activity Date Activity User E-sign Co-sign Detail Recorded Client Recorded Date Recorded By Document 12/10/24 11:08 JF [id number] 12/10/24 11:08 JF 12/10/24 11:08 Wound Center Nurse 2 -Time 11:08 -Correct Patient Yes -Correct Side, Site, Position Yes -Correct Procedure Yes -Procedure Performed Yes -Type of Procedure Debridement -Clinical Debridement Subcutaneous -Tissue Removed Subcutaneous -Post Debridement (cm) - Length 3.0 -Post Debridement (cm) - Width 0.7 -Post Debridement (cm) - Depth 1.0 -Total Square (Post) (cm) 2.10 -Area of Debridement (cm) - Length 3.0 -Area of Debridement (cm) - Width 0.7 -Total Square (Area) (cm) 2.10 -Tunneling No -Undermining/Tunneling No -Circular Undermining No -Wound/Ulcer Outcome Not Healed -Ulcer Cleansing Rinsed/ Irrigated with Saline -Foul Odor after Cleansing No -Bioengineered Tissue No -Bleeding Controlled with Pressure -Treatment Response Procedure Tolerated Well -Offloading No -Debridement - Subq, 1st 20sq cm Yes Pain Scale: 0-10 Numeric Is Patient Pain Free? Yes - Nurse 3 - General Ulcer D/C NN Start: 12/10/24 10:30 Freq: Status: Active Protocol: Activity Type Activity Date Activity User E-sign Co-sign Detail Recorded Client Recorded Date Recorded By Document 12/10/24 11:16 KW [id number] 12/10/24 11:17 KW 12/10/24 11:16 Wound Care Center Nurse 3 #1 Astrid Valera -Ulcer Cleansing Rinsed/ Irrigated with Saline -Primary Dressing Applied Aquacel AG 2x2 -Primary Dressing Covered/Secured with Dry Gauze, Secured with Tape -Aquacel AG 2x2 1 Pain Scale: 0-10 Numeric Is Patient Pain Free? Yes WC - Visit Discharge Discharge Condition Stable Ambulatory Status Ambulatory Transportation Private Auto Medication Reconcilliation completed & No provided to patient/care provider Clinical Summary of Care Provided Yes Assessment/Plan Assessment/Plan (1) Wound, open, back: CODE(S): S21.209A - Unspecified open wound of unspecified back wall of thorax without penetration into thoracic cavity, initial encounter PLAN: Continue Aqaucel Ag dressing changes daily with 2 week f/u in the WCC (discussed once piece in, one piece out) Continue wound care and tight blood sugar control 12/11/24 1004 Cosigner Signature (if applicable): CC: ~ Signed [facility]08-25-2025 Progress note Author Manpreet Joshi [facility] Note Date/Time November 26, 2024 10 :18am [facility] [address] [place] [address] Progress Note - Wound Care 11/26/24 1015 MR#: [id number] Acct: [id number] Name: KAN SAENZ Rep #:[id number] : 1960 64 From: Manpreet Joshi MD PCP: Dr. Kyle Lucero, DO Status:REG RCR Location: History of Present Illness Date of Service: 11/26/24 History of Wound: HPI 22 October 2024: The patient is a 64-year-old male presenting with an abscess on the right upper back. Approximately 4 to 5 weeks ago, the patient noticed a small red pimple on the right upper back, which progressed into an abscess. The abscess was initially incised and drained by Dr. Lucero, but it continued to drain and required further intervention. The patient has a history of diabetes mellitus with a significantly elevated A1cof 12.6, indicating poor glycemic control. He has been prescribed a new injectable medication for diabetes management, which he plans to start soon. ROS: - Integumentary: Reports abscess on right upper back - Endocrine: Reports diabetes mellitus with elevated A1c Attestation: Documentation on this patient encounter was supported using ambient scribe technology/ voice AI technology. The patient consented to recording for the purpose of documenting the encounter. Provider reviewed content of the generatednote prior to signature. Subjective Subjective 29 October 2024: Patient presents 1 week status post incision and drainage of right upper back abscess The patient is a 64-year-old male presenting with a wound infection in the context of diabetes mellitus. The patient has been experiencing elevated blood glucose levels, with a recent A1c of 13, necessitating the initiation of insulintherapy. The wound is described as deep, measuring approximately 4 x 4 x 3 cm, extending to the muscle and fascia, but without tunneling. The infection is currently controlled with antibiotics, specifically Bactrim, which was prescribed to address a culture-confirmed MSSA infection. The patient has been advised to maintain blood glucose control to facilitate wound healing. The wound care regimen includes regular irrigation and packing, with dressing changes recommended twice daily. ROS: - Endocrine: Reports elevated blood glucose levels, A1c of 13. - Integumentary: Reports deep wound, no tunneling, down to muscle and fascia. Attestation: Documentation on this patient encounter was supported using ambient scribe technology/ voice AI technology. The patient consented to recording for the purpose of documenting the encounter. Provider reviewed content of the generatednote prior to signature. 12 Nov 2024: Doing well overall. Finished his antibiotics. Doing well with wound care. CURRENT ENCOUNTER, 26 November 2024: Doing well overall. Has not been checking blood sugar though. Reports good dressing changes. Objective Data Objective Data Vital Signs: Vital Signs Temp Pulse Resp BP 97.3 F L 84 16 132/92 H 11/26/24 09:44 11/26/24 09:44 11/26/24 09:44 11/26/24 09:44 Charges/Coding Procedures Integumentary 111xxx-113xx: [id number] Hannah subq tissue 20 sq cm/< Physical Exam Narrative - Integumentary: Deep wound without tunneling, down to SUBQ now, measuring approximately 3 x 1 x 1 cm. No tunneling today. Much smaller and improving. Nopurulence Const alert and oriented x3 Debridement Note Debridement Note Wound debrided: Stage 3 right upper back wound after abscess I&D Laterality: Right Type of Debridement: Excisional debridement Anesthesia Used: 4% Lidocaine Solution Depth: in the subcutaneous layer Percentage of wound debrided: 100 Instrument Used: 7mm curette Tissue Removed: Fibrinous exudate and biofilm at the base of the wound Severity: Fat Layer Exposed Amount of bleeding with debridement: Mild Bleeding Controlled with: Compression and gauze Patient tolerated procedure: Patient tolerated procedure well Post-Debridement Measurements and Additional Note: Post-Debridement Measurements/Treatment - Nurse 1 - General Ulcer Assessment Start: 11/12/24 09:57 Freq: Status: Active Protocol: SILAS Activity Type Activity Date Activity User E-sign Co-sign Detail Recorded Client Recorded Date Recorded By Document 11/12/24 09:57 SEB [id number] 11/12/24 10:06 JF Document 11/26/24 09:44 DL [id number] 11/26/24 09:53 DL 11/12/24 11/26/24 09:57 09:44 WC - Today's Visit Information Type of service Follow-up Visit Follow-up Visit (Physician/TYPE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 (Physician/TYPE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 ) ) Arrival Mode Ambulatory Ambulatory Transfer Assistance Manual Patient Identification Verified (Name & Yes Yes ) Patient Requires Transmission-Based No No Precautions Vital Signs Temperature (97.8 F-99.1 F) 97.2 F L 97.3 F L Temperature Source Temporal Oral Pulse Rate (60-100) 104 H 84 Pulse Location Monitor Monitor Respiratory Rate (12-18) 18 16 Respiratory rate source Observation Observation Blood Pressure (90/60-120/80) 159/86 H 132/92 H Blood Pressure Mean (mm Hg) 110 105 Source Monitor Monitor Position Semi-Fowlers Blood Pressure Location Right Arm History Since Last Visit- (Skip if this is Patient's initial visit) Have you changed medications since your Yes No last visit? Any new allergies or adverse reactions No No Had a fall/change in ADL's that may No No increase risk of falls Signs or symptoms of abuse and/or No No neglect since last visit Have you been in the hospital since your No No last visit? Has dressing in place as prescribed Yes Yes Has compression in place as prescribed N/A N/A Has offloadiing in place as prescribed N/A N/A Experienced any changes in pain level or No No management Left Footwear Regular Shoe Right Footwear Regular Shoe Pain Scale: 0-10 Numeric Is Patient Pain Free? Yes Yes - Nurse 1 - General Ulcer Measurement Start: 11/12/24 09:57 Freq: Status: Active Protocol: Activity Type Activity Date Activity User E-sign Co-sign Detail Recorded Client Recorded Date Recorded By Document 11/12/24 09:57 SEB [id number] 11/12/24 10:06 Document 11/26/24 09:44 DL [id number] 11/26/24 09:53 DL 11/12/24 11/26/24 09:57 09:44 Wound Center Nurse 1 #1 Astrid Valera -Combined with other wound No -Current Size (cm) - Length 3.4 2.6 -Current Size (cm) - Width 1.1 0.7 -Current Size (cm) - Depth 1.9 1.3 -Total Square Cm 3.74 1.82 -Photo Taken Yes Yes -Epithelialization Medium 34-66% -Tunneling No -Undermining/Tunneling No -Circular Undermining No -Exudate Amt Medium Medium -Exudate Type Serosanguineous Serosanguineous -Wound Margin Flat & Intact Distinct, Outline Attached -Granulation Amt Large (67-100%) Large (67-100%) -Granulation Quality Red -Slough/Fibrin Yes No -Necrosis Amt Small (1-33%) None Present (0 %) -Structure Exposed Muscle N/A -Texture (Yari-wound Skin Appearance) Assessed Scarring -Moisture (Yari-wound Skin Appearance) Dry/Scaly Assessed -Color (Yari-wound Skin Appearance) Assessed No Abnormality -Temperature (Yari-wound Skin No Abnormality No Abnormality Appearance) (Pt Warm) (Pt Warm) -Tenderness on Palpation (Yari-wound No Skin Appearance) -Ulcer Cleansing Soap and Water Rinsed/ Irrigated with Saline -Foul Odor after Cleansing No No -Anesthetic Used 4% Lidocaine Solution Lower Limb Edema Present NA WC - Nurse 2 - General Ulcer CM Notes Start: 11/12/24 09:57 Freq: Status: Active Protocol: Activity Type Activity Date Activity User E-sign Co-sign Detail Recorded Client Recorded Date Recorded By Document 11/12/24 10:31 SEB [id number] 11/12/24 10:34 Document 11/26/24 10:10 [id number] 11/26/24 10:14 11/12/24 11/26/24 10:31 10:10 Wound Center Nurse 2 #1 Astrid Valera -Time 10:31 10:13 -Correct Patient Yes Yes -Correct Side, Site, Position Yes Yes -Correct Procedure Yes Yes -Procedure Performed Yes Yes -Type of Procedure Debridement Debridement -Clinical Debridement Muscle / Fascia Subcutaneous -Tissue Removed Muscle Subcutaneous -Post Debridement (cm) - Length 4 3 -Post Debridement (cm) - Width 1 1 -Post Debridement (cm) - Depth 1.9 1.4 -Total Square (Post) (cm) 4 3 -Area of Debridement (cm) - Length 4 3 -Area of Debridement (cm) - Width 1 1 -Total Square (Area) (cm) 4 3 -Tunneling No No -Undermining/Tunneling No No -Circular Undermining No No -Wound/Ulcer Outcome Not Healed Not Healed -Ulcer Cleansing Rinsed/ Rinsed/ Irrigated with Irrigated with Saline Saline -Foul Odor after Cleansing No No -Bioengineered Tissue No No -Bleeding Controlled with Pressure Pressure -Treatment Response Procedure Procedure Tolerated Well Tolerated Well -Offloading No No -Debridement - Subq, 1st 20sq cm Yes -Debridement - Muscle / Fascia, 1st Yes 20sq cm Pain Scale: 0-10 Numeric Is Patient Pain Free? Yes Yes WC - Nurse 3 - General Ulcer D/C NN Start: 11/12/24 09:57 Freq: Status: Active Protocol: Activity Type Activity Date Activity User E-sign Co-sign Detail Recorded Client Recorded Date Recorded By Document 11/12/24 10:52 ML [id number] 11/12/24 10:52 ML 11/12/24 10:52 Wound Care Center Nurse 3 #1 R Moraima -Ulcer Cleansing Rinsed/ Irrigated with Saline -Other Dressing dakins soaked guaze -Primary Dressing Covered/Secured with Dry Gauze, Secured with Tape Pain Scale: 0-10 Numeric Is Patient Pain Free? Yes Assessment/Plan Assessment/Plan (1) Wound, open, back: CODE(S): S21.209A - Unspecified open wound of unspecified back wall of thorax without penetration into thoracic cavity, initial encounter PLAN: Discontinued twice daily wet-to-dry dressing No signs of active infection, so agree with no antibiotics Aqaucel Ag dressing changes daily with 2 week f/u in the WCC (discussed once piece in, one peice out) Continue wound care and tight blood sugar control 11/26/24 1018 <Electronically signed by Manpreet Joshi MD> Cosigner Signature (if applicable): CC: ~ Signed [facility] Work Phone: [phone] Progress note [facility] [address] [place] [address] Progress Note - Wound Care 11/26/24 1015 MR#: [id number] Acct: [id number] Name: KAN SAENZ Rep #:[id number] : 1960 64 From: Manpreet Joshi MD PCP: Dr. Kyle Lucero, DO Status:REG RCR Location: History of Present Illness Date of Service: 11/26/24 History of Wound: HPI 22 October 2024: The patient is a 64-year-old male presenting with an abscess on the right upper back. Approximately4 to 5 weeks ago, the patient noticed a small red pimple on the right upper back, which progressed into an abscess. The abscess was initially incised and drained by Dr. Lucero, but it continued to drain and required further intervention. The patient has a history of diabetes mellitus with a significantly elevated A1cof 12.6, indicatingpoor glycemic control. He has been prescribed a new injectable medication for diabetes management, which he plans to start soon. ROS: - Integumentary: Reports abscess on right upper back - Endocrine: Reports diabetes mellitus with elevated A1c Attestation: Documentation on this patient encounter was supported using ambient scribe technology/ voice AI technology. The patient consented to recording for the purpose of documenting the encounter. Provider reviewed content of the generatednote prior to signature. Subjective Subjective 29 October 2024: Patient presents 1 week status post incision and drainage of right upper back abscess The patient is a 64-year-old male presenting with a wound infection in the context of diabetes mellitus. The patient has been experiencing elevated blood glucose levels, with a recent A1c of 13, necessitating the initiation of insulintherapy. The wound is described as deep, measuring approximately 4 x 4 x 3 cm, extending to the muscle and fascia, but without tunneling. The infection is currently controlled with antibiotics, specifically Bactrim, which was prescribed to address a culture-confirmed MSSA infection. The patient has been advised to maintain blood glucose control to facilitate wound healing. The wound care regimen includes regular irrigation and packing, with dressing changes recommended twice daily. ROS: - Endocrine: Reports elevated blood glucose levels, A1c of 13. - Integumentary: Reports deep wound, no tunneling, down to muscle and fascia. Attestation: Documentation on this patient encounter was supported using ambient scribe technology/ voice AI technology. The patient consented to recording for the purpose of documenting the encounter. Provider reviewed content of the generatednote prior to signature. 12 Nov 2024: Doing well overall. Finished his antibiotics. Doing well with wound care. CURRENT ENCOUNTER, 26 November 2024: Doing well overall. Has not been checking blood sugar though. Reports good dressing changes. Objective Data Objective Data Vital Signs: Vital Signs Temp Pulse Resp BP 97.3 F L 84 16 132/92 H 11/26/24 09:44 11/26/24 09:44 11/26/24 09:44 11/26/24 09:44 Charges/Coding Procedures Integumentary 111xxx-113xx: [id number] Hannah subq tissue 20 sq cm/< Physical Exam Narrative - Integumentary: Deep wound without tunneling, down to SUBQ now, measuring approximately 3 x 1 x 1 cm. No tunneling today. Much smaller and improving. Nopurulence Const alert and oriented x3 Debridement Note Debridement Note Wound debrided: Stage 3 right upper back wound after abscess I&D Laterality: Right Type of Debridement: Excisional debridement Anesthesia Used: 4% Lidocaine Solution Depth: in the subcutaneous layer Percentage of wound debrided: 100 Instrument Used: 7mm curette Tissue Removed: Fibrinous exudate and biofilm at the base of the wound Severity: Fat Layer Exposed Amount of bleeding with debridement: Mild Bleeding Controlled with: Compression and gauze Patient tolerated procedure: Patient tolerated procedure well Post-Debridement Measurements and Additional Note: Post-Debridement Measurements/Treatment - Nurse 1 - General Ulcer Assessment Start: 11/12/24 09:57 Freq: Status: Active Protocol: SILAS Activity Type Activity Date Activity User E-sign Co-sign Detail Recorded Client Recorded Date Recorded By Document 11/12/24 09:57 JF [id number] 11/12/24 10:06 JF Document 11/26/24 09:44 DL [id number] 11/26/24 09:53 DL 11/12/24 11/26/24 09:57 09:44 - Today's Visit Information Type of service Follow-up Visit Follow-up Visit (Physician/TYPE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 (Physician/TYPE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 ) ) Arrival Mode Ambulatory Ambulatory Transfer Assistance Manual Patient Identification Verified (Name & Yes Yes ) Patient Requires Transmission-Based No No Precautions Vital Signs Temperature (97.8 F-99.1 F) 97.2 F L 97.3 F L Temperature Source Temporal Oral Pulse Rate (60-100) 104 H 84 Pulse Location Monitor Monitor Respiratory Rate (12-18) 18 16 Respiratory rate source Observation Observation Blood Pressure (90/60-120/80) 159/86 H 132/92 H Blood Pressure Mean (mm Hg) 110 105 Source Monitor Monitor Position Semi-Fowlers Blood Pressure Location Right Arm History Since Last Visit- (Skip if this is Patient's initial visit) Have you changed medications since your Yes No last visit? Any new allergies or adverse reactions No No Had a fall/change in ADL's that may No No increase risk of falls Signs or symptoms of abuse and/or No No neglect since last visit Have you been in the hospital since your No No last visit? Has dressing in place as prescribed Yes Yes Has compression in place as prescribed N/A N/A Has offloadiing in place as prescribed N/A N/A Experienced any changes in pain level or No No management Left Footwear Regular Shoe Right Footwear Regular Shoe Pain Scale: 0-10 Numeric Is Patient Pain Free? Yes Yes - Nurse 1 - General Ulcer Measurement Start: 11/12/24 09:57 Freq: Status: Active Protocol: Activity Type Activity Date Activity User E-sign Co-sign Detail Recorded Client Recorded Date Recorded By Document 11/12/24 09:57 [id number] 11/12/24 10:06 Document 11/26/24 09:44 DL [id number] 11/26/24 09:53 DL 11/12/24 11/26/24 09:57 09:44 Wound Center Nurse 1 #1 R Moraima -Combined with other wound No -Current Size (cm) - Length 3.4 2.6 -Current Size (cm) - Width 1.1 0.7 -Current Size (cm) - Depth 1.9 1.3 -Total Square Cm 3.74 1.82 -Photo Taken Yes Yes -Epithelialization Medium 34-66% -Tunneling No -Undermining/Tunneling No -Circular Undermining No -Exudate Amt Medium Medium -Exudate Type Serosanguineous Serosanguineous -Wound Margin Flat & Intact Distinct, Outline Attached -Granulation Amt Large (67-100%) Large (67-100%) -Granulation Quality Red -Slough/Fibrin Yes No -Necrosis Amt Small (1-33%) None Present (0 %) -Structure Exposed Muscle N/A -Texture (Yari-wound Skin Appearance) Assessed Scarring -Moisture (Yari-wound Skin Appearance) Dry/Scaly Assessed -Color (Yari-wound Skin Appearance) Assessed No Abnormality -Temperature (Yari-wound Skin No Abnormality No Abnormality Appearance) (Pt Warm) (Pt Warm) -Tenderness on Palpation (Yari-wound No Skin Appearance) -Ulcer Cleansing Soap and Water Rinsed/ Irrigated with Saline -Foul Odor after Cleansing No No -Anesthetic Used 4% Lidocaine Solution Lower Limb Edema Present NA - Nurse 2 - General Ulcer CM Notes Start: 11/12/24 09:57 Freq: Status: Active Protocol: Activity Type Activity Date Activity User E-sign Co-sign Detail Recorded Client Recorded Date Recorded By Document 11/12/24 10:31 [id number] 11/12/24 10:34 Document 11/26/24 10:10 [id number] 11/26/24 10:14 11/12/24 11/26/24 10:31 10:10 Wound Center Nurse 2 #1 R Moraima -Time 10:31 10:13 -Correct Patient Yes Yes -Correct Side, Site, Position Yes Yes -Correct Procedure Yes Yes -Procedure Performed Yes Yes -Type of Procedure Debridement Debridement -Clinical Debridement Muscle / Fascia Subcutaneous -Tissue Removed Muscle Subcutaneous -Post Debridement (cm) - Length 4 3 -Post Debridement (cm) - Width 1 1 -Post Debridement (cm) - Depth 1.9 1.4 -Total Square (Post) (cm) 4 3 -Area of Debridement (cm) - Length 4 3 -Area of Debridement (cm) - Width 1 1 -Total Square (Area) (cm) 4 3 -Tunneling No No -Undermining/Tunneling No No -Circular Undermining No No -Wound/Ulcer Outcome Not Healed Not Healed -Ulcer Cleansing Rinsed/ Rinsed/ Irrigated with Irrigated with Saline Saline -Foul Odor after Cleansing No No -Bioengineered Tissue No No -Bleeding Controlled with Pressure Pressure -Treatment Response Procedure Procedure Tolerated Well Tolerated Well -Offloading No No -Debridement - Subq, 1st 20sq cm Yes -Debridement - Muscle / Fascia, 1st Yes 20sq cm Pain Scale: 0-10 Numeric Is Patient Pain Free? Yes Yes - Nurse 3 - General Ulcer D/C NN Start: 11/12/24 09:57 Freq: Status: Active Protocol: Activity Type Activity Date Activity User E-sign Co-sign Detail Recorded Client Recorded Date Recorded By Document 11/12/24 10:52 ML [id number] 11/12/24 10:52 ML 11/12/24 10:52 Wound Care Center Nurse 3 #1 R Soulder -Ulcer Cleansing Rinsed/ Irrigated with Saline -Other Dressing dakins soaked guaze -Primary Dressing Covered/Secured with Dry Gauze, Secured with Tape Pain Scale: 0-10 Numeric Is Patient Pain Free? Yes Assessment/Plan Assessment/Plan (1) Wound, open, back: CODE(S): S21.209A - Unspecified open wound of unspecified back wall of thorax without penetration into thoracic cavity, initial encounter PLAN: Discontinued twice daily wet-to-dry dressing No signs of active infection, so agree with no antibiotics Aqaucel Ag dressing changes daily with 2 week f/u in the WCC (discussed once piece in, one peice out) Continue wound care and tight blood sugar control 11/26/24 1018 Cosigner Signature (if applicable): CC: ~ Signed [facility]08-11-2025 Progress note Author Manpreet Joshi [facility] Note Date/Time November 12, 2024 1: 28pm [facility] [address] [place] [id number] Progress Note - Wound Care 11/12/24 1325 MR#: [id number] Acct: [id number] Name: KAN SAENZ Rep #:[id number] : 1960 64 From: Manpreet Joshi MD PCP: Dr. Kyle Lucero, DO Status:REG RCR Location: History of Present Illness Date of Service: 10/29/24 History of Wound: HPI 22 October 2024: The patient is a 64-year-old male presenting with an abscess on the right upper back. Approximately 4 to 5 weeks ago, the patient noticed a small red pimple on the right upper back, which progressed into an abscess. The abscess was initially incised and drained by Dr. Lucero, but it continued to drain and required further intervention. The patient has a history of diabetes mellitus with a significantly elevated A1cof 12.6, indicating poor glycemic control. He has been prescribed a new injectable medication for diabetes management, which he plans to start soon. ROS: - Integumentary: Reports abscess on right upper back - Endocrine: Reports diabetes mellitus with elevated A1c Attestation: Documentation on this patient encounter was supported using ambient scribe technology/ voice AI technology. The patient consented to recording for the purpose of documenting the encounter. Provider reviewed content of the generatednote prior to signature. Subjective Subjective 29 October 2024: Patient presents 1 week status post incision and drainage of right upper back abscess The patient is a 64-year-old male presenting with a wound infection in the context of diabetes mellitus. The patient has been experiencing elevated blood glucose levels, with a recent A1c of 13, necessitating the initiation of insulintherapy. The wound is described as deep, measuring approximately 4 x 4 x 3 cm, extending to the muscle and fascia, but without tunneling. The infection is currently controlled with antibiotics, specifically Bactrim, which was prescribed to address a culture-confirmed MSSA infection. The patient has been advised to maintain blood glucose control to facilitate wound healing. The wound care regimen includes regular irrigation and packing, with dressing changes recommended twice daily. ROS: - Endocrine: Reports elevated blood glucose levels, A1c of 13. - Integumentary: Reports deep wound, no tunneling, down to muscle and fascia. Attestation: Documentation on this patient encounter was supported using ambient scribe technology/ voice AI technology. The patient consented to recording for the purpose of documenting the encounter. Provider reviewed content of the generatednote prior to signature. CURRENT ENCOUNTER, 12 Nov 2024: Doing well overall. Finished his antibiotics. Doing well with wound care. Objective Data Objective Data Vital Signs: Vital Signs Temp Pulse Resp BP 97.2 F L 104 H 18 159/86 H 11/12/24 09:57 11/12/24 09:57 11/12/24 09:57 11/12/24 09:57 Charges/Coding Procedures Integumentary 111xxx-113xx: [id number] Hannah musc/fascia 20 sq cm/< Physical Exam Narrative - Integumentary: Deep wound without tunneling, down to muscle and fascia, measuring approximately ~3 x 1 x 1 cm. No purulent drainage today but significant fibrinous exudate and necrotic abscess rind over the underlying muscle. Much smaller and improving. No purulence Const alert and oriented x3 Debridement Note Debridement Note Wound debrided: Right upper back wound Laterality: Right Wound Grade/Stage: 3, down to muscle Type of Debridement: Excisional debridement Anesthesia Used: 4% Lidocaine Solution Depth: to muscle Percentage of wound debrided: 100 Tissue Removed: Necrotic fibrinous exudate at the base of the wound over the muscle Severity: Necrosis of Muscle Amount of bleeding with debridement: Moderate Bleeding Controlled with: Compression and gauze Patient tolerated procedure: Patient tolerated procedure well Post-Debridement Measurements and Additional Note: Post-Debridement Measurements/Treatment - Nurse 1 - General Ulcer Assessment Start: 11/12/24 09:57 Freq: Status: Active Protocol: SILAS Activity Type Activity Date Activity User E-sign Co-sign Detail Recorded Client Recorded Date Recorded By Document 11/12/24 09:57 SEB [id number] 11/12/24 10:06 SEB 11/12/24 09:57 SUZI - Today's Visit Information Type of service Follow-up Visit (Physician/TYPE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 ) Arrival Mode Ambulatory Patient Identification Verified (Name & Yes ) Patient Requires Transmission-Based No Precautions Vital Signs Temperature (97.8 F-99.1 F) 97.2 F L Temperature Source Temporal Pulse Rate (60-100) 104 H Pulse Location Monitor Respiratory Rate (12-18) 18 Respiratory rate source Observation Blood Pressure (90/60-120/80) 159/86 H Blood Pressure Mean (mm Hg) 110 Source Monitor Position Semi-Fowlers Blood Pressure Location Right Arm History Since Last Visit- (Skip if this is Patient's initial visit) Have you changed medications since your Yes last visit? Any new allergies or adverse reactions No Had a fall/change in ADL's that may No increase risk of falls Signs or symptoms of abuse and/or No neglect since last visit Have you been in the hospital since your No last visit? Has dressing in place as prescribed Yes Has compression in place as prescribed N/A Has offloadiing in place as prescribed N/A Experienced any changes in pain level or No management Left Footwear Regular Shoe Right Footwear Regular Shoe Pain Scale: 0-10 Numeric Is Patient Pain Free? Yes SUZI Carr Nurse 1 - General Ulcer Measurement Start: 11/12/24 09:57 Freq: Status: Active Protocol: Activity Type Activity Date Activity User E-sign Co-sign Detail Recorded Client Recorded Date Recorded By Document 11/12/24 09:57 SEB [id number] 11/12/24 10:06 11/12/24 09:57 Wound Center Nurse 1 #1 Astrid Moraima -Combined with other wound No -Current Size (cm) - Length 3.4 -Current Size (cm) - Width 1.1 -Current Size (cm) - Depth 1.9 -Total Square Cm 3.74 -Photo Taken Yes -Epithelialization Medium 34-66% -Tunneling No -Undermining/Tunneling No -Circular Undermining No -Exudate Amt Medium -Exudate Type Serosanguineous -Wound Margin Flat & Intact -Granulation Amt Large (67-100%) -Granulation Quality Red -Slough/Fibrin Yes -Necrosis Amt Small (1-33%) -Structure Exposed Muscle -Texture (Yari-wound Skin Appearance) Assessed -Moisture (Yari-wound Skin Appearance) Dry/Scaly -Color (Yari-wound Skin Appearance) Assessed -Temperature (Yari-wound Skin No Abnormality Appearance) (Pt Warm) -Tenderness on Palpation (Yari-wound No Skin Appearance) -Ulcer Cleansing Soap and Water -Foul Odor after Cleansing No -Anesthetic Used 4% Lidocaine Solution Lower Limb Edema Present NA WC - Nurse 2 - General Ulcer CM Notes Start: 11/12/24 09:57 Freq: Status: Active Protocol: Activity Type Activity Date Activity User E-sign Co-sign Detail Recorded Client Recorded Date Recorded By Document 11/12/24 10:31 [id number] 11/12/24 10:34 11/12/24 10:31 Wound Center Nurse 2 #1 Astrid Valera -Time 10:31 -Correct Patient Yes -Correct Side, Site, Position Yes -Correct Procedure Yes -Procedure Performed Yes -Type of Procedure Debridement -Clinical Debridement Muscle / Fascia -Tissue Removed Muscle -Post Debridement (cm) - Length 4 -Post Debridement (cm) - Width 1 -Post Debridement (cm) - Depth 1.9 -Total Square (Post) (cm) 4 -Area of Debridement (cm) - Length 4 -Area of Debridement (cm) - Width 1 -Total Square (Area) (cm) 4 -Tunneling No -Undermining/Tunneling No -Circular Undermining No -Wound/Ulcer Outcome Not Healed -Ulcer Cleansing Rinsed/ Irrigated with Saline -Foul Odor after Cleansing No -Bioengineered Tissue No -Bleeding Controlled with Pressure -Treatment Response Procedure Tolerated Well -Offloading No -Debridement - Muscle / Fascia, 1st Yes 20sq cm Pain Scale: 0-10 Numeric Is Patient Pain Free? Yes - Nurse 3 - General Ulcer D/C NN Start: 11/12/24 09:57 Freq: Status: Active Protocol: Activity Type Activity Date Activity User E-sign Co-sign Detail Recorded Client Recorded Date Recorded By Document 11/12/24 10:52 ML [id number] 11/12/24 10:52 ML 11/12/24 10:52 Wound Care Center Nurse 3 #1 R Moraima -Ulcer Cleansing Rinsed/ Irrigated with Saline -Other Dressing dakins soaked guaze -Primary Dressing Covered/Secured with Dry Gauze, Secured with Tape Pain Scale: 0-10 Numeric Is Patient Pain Free? Yes Assessment/Plan Assessment/Plan (1) Wound, open, back: CODE(S): S21.209A - Unspecified open wound of unspecified back wall of thorax without penetration into thoracic cavity, initial encounter PLAN: Continue twice daily wet-to-dry dressing No signs of active infection, so agree with no antibiotics Continue wound care and tight blood sugar control (seeing PCP again later this week for f/u for DM) F/u with me in 2 weeks 11/12/24 1328 <Electronically signed by Manpreet Joshi MD> Cosigner Signature (if applicable): CC: ~ Signed [facility] Work Phone: [phone]) 542-543308-11-2025 Progress note [facility] [address] [place] [address] Progress Note - Wound Care 11/12/24 1325 MR#: [id number] Acct: [id number] Name: KAN SAENZ Rep #:[id number] : 1960 64 From: Manpreet Joshi MD PCP: Dr. Kyle Lucero DO Status:REG RCR Location: History of Present Illness Date of Service: 10/29/24 History of Wound: HPI 22 October 2024: The patient is a 64-year-old male presenting with an abscess on the right upper back. Approximately4 to 5 weeks ago, the patient noticed a small red pimple on the right upper back, which progressed into an abscess. The abscess was initially incised and drained by Dr. Lucero, but it continued to drain and required further intervention. The patient has a history of diabetes mellitus with a significantly elevated A1cof 12.6, indicatingpoor glycemic control. He has been prescribed a new injectable medication for diabetes management, which he plans to start soon. ROS: - Integumentary: Reports abscess on right upper back - Endocrine: Reports diabetes mellitus with elevated A1c Attestation: Documentation on this patient encounter was supported using ambient scribe technology/ voice AI technology. The patient consented to recording for the purpose of documenting the encounter. Provider reviewed content of the generatednote prior to signature. Subjective Subjective 29 October 2024: Patient presents 1 week status post incision and drainage of right upper back abscess The patient is a 64-year-old male presenting with a wound infection in the context of diabetes mellitus. The patient has been experiencing elevated blood glucose levels, with a recent A1c of 13, necessitating the initiation of insulintherapy. The wound is described as deep, measuring approximately 4 x 4 x 3 cm, extending to the muscle and fascia, but without tunneling. The infection is currently controlled with antibiotics, specifically Bactrim, which was prescribed to address a culture-confirmed MSSA infection. The patient has been advised to maintain blood glucose control to facilitate wound healing. The wound care regimen includes regular irrigation and packing, with dressing changes recommended twice daily. ROS: - Endocrine: Reports elevated blood glucose levels, A1c of 13. - Integumentary: Reports deep wound, no tunneling, down to muscle and fascia. Attestation: Documentation on this patient encounter was supported using ambient scribe technology/ voice AI technology. The patient consented to recording for the purpose of documenting the encounter. Provider reviewed content of the generatednote prior to signature. CURRENT ENCOUNTER, 12 Nov 2024: Doing well overall. Finished his antibiotics. Doing well with wound care. Objective Data Objective Data Vital Signs: Vital Signs Temp Pulse Resp BP 97.2 F L 104 H 18 159/86 H 11/12/24 09:57 11/12/24 09:57 11/12/24 09:57 11/12/24 09:57 Charges/Coding Procedures Integumentary 111xxx-113xx: [id number] Hannah musc/fascia 20 sq cm/< Physical Exam Narrative - Integumentary: Deep wound without tunneling, down to muscle and fascia, measuring approximately ~3 x 1 x 1 cm. No purulent drainage today but significant fibrinous exudate and necrotic abscess rindover the underlying muscle. Much smaller and improving. No purulence Const alert and oriented x3 Debridement Note Debridement Note Wound debrided: Right upper back wound Laterality: Right Wound Grade/Stage: 3, down to muscle Type of Debridement: Excisional debridement Anesthesia Used: 4% Lidocaine Solution Depth: to muscle Percentage of wound debrided: 100 Tissue Removed: Necrotic fibrinous exudate at the base of the wound over the muscle Severity: Necrosis of Muscle Amount of bleeding with debridement: Moderate Bleeding Controlled with: Compression and gauze Patient tolerated procedure: Patient tolerated procedure well Post-Debridement Measurements and Additional Note: Post-Debridement Measurements/Treatment SUZI - Nurse 1 - General Ulcer Assessment Start: 11/12/24 09:57 Freq: Status: Active Protocol: SILAS Activity Type Activity Date Activity User E-sign Co-sign Detail Recorded Client Recorded Date Recorded By Document 11/12/24 09:57 SEB [id number] 11/12/24 10:06 SEB 11/12/24 09:57 - Today's Visit Information Type of service Follow-up Visit (Physician/TYPE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 ) Arrival Mode Ambulatory Patient Identification Verified (Name & Yes ) Patient Requires Transmission-Based No Precautions Vital Signs Temperature (97.8 F-99.1 F) 97.2 F L Temperature Source Temporal Pulse Rate (60-100) 104 H Pulse Location Monitor Respiratory Rate (12-18) 18 Respiratory rate source Observation Blood Pressure (90/60-120/80) 159/86 H Blood Pressure Mean (mm Hg) 110 Source Monitor Position Semi-Fowlers Blood Pressure Location Right Arm History Since Last Visit- (Skip if this is Patient's initial visit) Have you changed medications since your Yes last visit? Any new allergies or adverse reactions No Had a fall/change in ADL's that may No increase risk of falls Signs or symptoms of abuse and/or No neglect since last visit Have you been in the hospital since your No last visit? Has dressing in place as prescribed Yes Has compression in place as prescribed N/A Has offloadiing in place as prescribed N/A Experienced any changes in pain level or No management Left Footwear Regular Shoe Right Footwear Regular Shoe Pain Scale: 0-10 Numeric Is Patient Pain Free? Yes - Nurse 1 - General Ulcer Measurement Start: 11/12/24 09:57 Freq: Status: Active Protocol: Activity Type Activity Date Activity User E-sign Co-sign Detail Recorded Client Recorded Date Recorded By Document 11/12/24 09:57 JF [id number] 11/12/24 10:06 11/12/24 09:57 Wound Center Nurse 1 #1 Astrid Moraima -Combined with other wound No -Current Size (cm) - Length 3.4 -Current Size (cm) - Width 1.1 -Current Size (cm) - Depth 1.9 -Total Square Cm 3.74 -Photo Taken Yes -Epithelialization Medium 34-66% -Tunneling No -Undermining/Tunneling No -Circular Undermining No -Exudate Amt Medium -Exudate Type Serosanguineous -Wound Margin Flat & Intact -Granulation Amt Large (67-100%) -Granulation Quality Red -Slough/Fibrin Yes -Necrosis Amt Small (1-33%) -Structure Exposed Muscle -Texture (Yari-wound Skin Appearance) Assessed -Moisture (Yari-wound Skin Appearance) Dry/Scaly -Color (Yari-wound Skin Appearance) Assessed -Temperature (Yari-wound Skin No Abnormality Appearance) (Pt Warm) -Tenderness on Palpation (Yari-wound No Skin Appearance) -Ulcer Cleansing Soap and Water -Foul Odor after Cleansing No -Anesthetic Used 4% Lidocaine Solution Lower Limb Edema Present NA - Nurse 2 - General Ulcer CM Notes Start: 11/12/24 09:57 Freq: Status: Active Protocol: Activity Type Activity Date Activity User E-sign Co-sign Detail Recorded Client Recorded Date Recorded By Document 11/12/24 10:31 JF [id number] 11/12/24 10:34 11/12/24 10:31 Wound Center Nurse 2 #1 Astrid Moyerjnnoah -Time 10:31 -Correct Patient Yes -Correct Side, Site, Position Yes -Correct Procedure Yes -Procedure Performed Yes -Type of Procedure Debridement -Clinical Debridement Muscle / Fascia -Tissue Removed Muscle -Post Debridement (cm) - Length 4 -Post Debridement (cm) - Width 1 -Post Debridement (cm) - Depth 1.9 -Total Square (Post) (cm) 4 -Area of Debridement (cm) - Length 4 -Area of Debridement (cm) - Width 1 -Total Square (Area) (cm) 4 -Tunneling No -Undermining/Tunneling No -Circular Undermining No -Wound/Ulcer Outcome Not Healed -Ulcer Cleansing Rinsed/ Irrigated with Saline -Foul Odor after Cleansing No -Bioengineered Tissue No -Bleeding Controlled with Pressure -Treatment Response Procedure Tolerated Well -Offloading No -Debridement - Muscle / Fascia, 1st Yes 20sq cm Pain Scale: 0-10 Numeric Is Patient Pain Free? Yes WC - Nurse 3 - General Ulcer D/C NN Start: 11/12/24 09:57 Freq: Status: Active Protocol: Activity Type Activity Date Activity User E-sign Co-sign Detail Recorded Client Recorded Date Recorded By Document 11/12/24 10:52 ML [id number] 11/12/24 10:52 ML 11/12/24 10:52 Wound Care Center Nurse 3 #1 R Moraima -Ulcer Cleansing Rinsed/ Irrigated with Saline -Other Dressing dakins soaked guaze -Primary Dressing Covered/Secured with Dry Gauze, Secured with Tape Pain Scale: 0-10 Numeric Is Patient Pain Free? Yes Assessment/Plan Assessment/Plan (1) Wound, open, back: CODE(S): S21.209A - Unspecified open wound of unspecified back wall of thorax without penetration into thoracic cavity, initial encounter PLAN: Continue twice daily wet-to-dry dressing No signs of active infection, so agree with no antibiotics Continue wound care and tight blood sugar control (seeing PCP again later this week for f/u for DM) F/u with me in 2 weeks 11/12/24 1328 Cosigner Signature (if applicable): CC: ~ Signed [facility]07-28-2025 Progress note Author Manpreet Joshi [facility] Note Date/Time October 29, 2024 10:1 5am [facility] [address] [place] [address] Progress Note - Wound Care 10/29/24 1010 MR#: [id number] Acct: [id number] Name: KAN SAENZ Rep #:[id number] : 1960 64 From: Manpreet Joshi MD PCP: Dr. Kyle Lucero, DO Status:REG RCR Location: History of Present Illness Date of Service: 10/29/24 History of Wound: HPI 22 October 2024: The patient is a 64-year-old male presenting with an abscess on the right upper back. Approximately 4 to 5 weeks ago, the patient noticed a small red pimple on the right upper back, which progressed into an abscess. The abscess was initially incised and drained by Dr. Lucero, but it continued to drain and required further intervention. The patient has a history of diabetes mellitus with a significantly elevated A1cof 12.6, indicating poor glycemic control. He has been prescribed a new injectable medication for diabetes management, which he plans to start soon. ROS: - Integumentary: Reports abscess on right upper back - Endocrine: Reports diabetes mellitus with elevated A1c Attestation: Documentation on this patient encounter was supported using ambient scribe technology/ voice AI technology. The patient consented to recording for the purpose of documenting the encounter. Provider reviewed content of the generatednote prior to signature. Subjective Subjective CURRENT ENCOUNTER, 29 October 2024: Patient presents 1 week status post incision and drainage of right upper back abscess The patient is a 64-year-old male presenting with a wound infection in the context of diabetes mellitus. The patient has been experiencing elevated blood glucose levels, with a recent A1c of 13, necessitating the initiation of insulintherapy. The wound is described as deep, measuring approximately 4 x 4 x 3 cm, extending to the muscle and fascia, but without tunneling. The infection is currently controlled with antibiotics, specifically Bactrim, which was prescribed to address a culture-confirmed MSSA infection. The patient has been advised to maintain blood glucose control to facilitate wound healing. The wound care regimen includes regular irrigation and packing, with dressing changes recommended twice daily. ROS: - Endocrine: Reports elevated blood glucose levels, A1c of 13. - Integumentary: Reports deep wound, no tunneling, down to muscle and fascia. Attestation: Documentation on this patient encounter was supported using ambient scribe technology/ voice AI technology. The patient consented to recording for the purpose of documenting the encounter. Provider reviewed content of the generatednote prior to signature. Objective Data Objective Data Vital Signs: Vital Signs Temp Pulse Resp BP 97.6 F L 104 H 16 122/90 H 10/29/24 08:53 10/29/24 08:53 10/29/24 08:53 10/29/24 08:53 Weight: 216 lb 3.175 oz Body Mass Index (BMI) 34.9 Lab / Micro Data Micro: Microbiology 10/22/24 10:56 Wound - Shoulder Gram Stain - Final 10/22/24 10:56 Wound - Shoulder Wound Culture - Final Staphylococcus aureus 10/22/24 10:56 Wound - Shoulder Anaerobic Culture - Final No anaerobic bacteria isolated. Charges/Coding Procedures Integumentary 111xxx-113xx: [id number] Hannah musc/fascia 20 sq cm/< Physical Exam Narrative - Integumentary: Deep wound without tunneling, down to muscle and fascia, measuring approximately 4 x 4 x 3 cm. No purulent drainage today but significant fibrinous exudate and necrotic abscess rind over the underlying muscle Const alert and oriented x3 Debridement Note Debridement Note Wound debrided: Right upper back wound Laterality: Right Wound Grade/Stage: Stage III down to underlying trapezius muscle Type of Debridement: Excisional debridement Anesthesia Used: 4% Lidocaine Solution Depth: to muscle (Trapezius muscle right upper back) Percentage of wound debrided: 100 Instrument Used: 7mm curette (Used for sharp excision of the wound bed) Tissue Removed: Necrotic fibrinous exudate and abscess rind on trapezius muscle at the base Severity: Necrosis of Muscle Amount of bleeding with debridement: Moderate Bleeding Controlled with: Compression and gauze Patient tolerated procedure: Patient tolerated procedure well Debridement Free Text: Wound was packed at the completion of the case. Post-Debridement Measurements and Additional Note: Post-Debridement Measurements/Treatment WC - Nurse 1 - General Ulcer Assessment Start: 10/22/24 10:02 Freq: Status: Active Protocol: [email or web address] Activity Type Activity Date Activity User E-sign Co-sign Detail Recorded Client Recorded Date Recorded By Document 10/22/24 10:06 THEO [id number] 10/22/24 10:18 DL Document 10/29/24 08:53 [id number] 10/29/24 09:02 10/22/24 10/29/24 10:06 08:53 - Today's Visit Information Type of service Initial Visit Follow-up Visit (Physician/[employer]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 ) Arrival Mode Ambulatory Ambulatory Transfer Assistance None Patient Identification Verified (Name & Yes Yes ) Patient Requires Transmission-Based No No Precautions Height and Weight Height 5 ft 6 in Weight 216 lb 3.175 oz Weight in Pounds 216.2 lbs Weight Measurement Method Estimated by Patient Body Mass Index (BMI) 34.9 34.9 BMI Classification Obese Obese Vital Signs Temperature (97.8 F-99.1 F) 98 F 97.6 F L Temperature Source Oral Temporal Pulse Rate (60-100) 111 H 104 H Pulse Location Monitor Monitor Respiratory Rate (12-18) 18 16 Respiratory rate source Observation Observation Blood Pressure (90/60-120/80) 140/96 H 122/90 H Blood Pressure Mean (mm Hg) 110 100 Source Monitor Monitor Position Semi-Fowlers Blood Pressure Location Left Arm History Since Last Visit- (Skip if this is Patient's initial visit) Have you changed medications since your Yes last visit? Any new allergies or adverse reactions No Had a fall/change in ADL's that may No increase risk of falls Signs or symptoms of abuse and/or No neglect since last visit Have you been in the hospital since your No last visit? Has dressing in place as prescribed Yes Has compression in place as prescribed N/A Has offloadiing in place as prescribed N/A Experienced any changes in pain level or No management Left Footwear Regular Shoe Right Footwear Regular Shoe Pain Scale: 0-10 Numeric Is Patient Pain Free? Yes Yes Communication Assessment Preferred language [place]ian Housing Specialist Required No Able to Read Yes Able to Write Yes Communication Tools None Right Hearing Abillity Normal Left Hearing Abillity Normal Visual Assistive Devices Glasses Teaching Assessment Preferences Verbal,Written Barriers to Learning None Readiness To Learn Good Willingness to Engage in Self Management Med Activies Readiness to Engage in Self Management Med Activities Anxiety Level Calm Cooperation Cooperative Perception Coherent Interest in Health Problem Asks Questions Education Importance Acknowledges Need Does Patient Smoke tobacco or other No substances Smoking Status Never smoker Is Patient Diabetic Yes Teaching: Wound Center Discharge Instructions -Person Taught Patient *Welcome to the Wound Center -Person Taught Patient WC - Nurse 1 - General Ulcer Measurement Start: 10/22/24 10:02 Freq: Status: Active Protocol: Activity Type Activity Date Activity User E-sign Co-sign Detail Recorded Client Recorded Date Recorded By Document 10/22/24 10:06 TEHO [id number] 10/22/24 10:18 DL Document 10/29/24 08:53 JF [id number] 10/29/24 09:02 SEB 10/22/24 10/29/24 10:06 08:53 Wound Center Nurse 1 #1 R [place] -Combined with other wound No -Current Size (cm) - Length 1.1 4 -Current Size (cm) - Width 0.5 1.1 -Current Size (cm) - Depth 2.2 1.7 -Total Square Cm 0.55 4.4 -Photo Taken Yes Yes -Epithelialization Small 1-33% -Tunneling No -Undermining/Tunneling No -Circular Undermining No -Classification - Thickness Full Thickness without Exposed Support Structure -Exudate Amt Medium Large -Exudate Type Yellow/Green Serosanguineous -Wound Margin Distinct, Thickened Outline Attached -Granulation Amt Medium (34-66%) Medium (34-66%) -Granulation Quality [place] -Slough/Fibrin Yes -Necrosis Amt Medium (34-66%) Small (1-33%) -Necrotic Tissue Type Adherent Slough Adherent Slough -Structure Exposed N/A N/A -Texture (Yari-wound Skin Appearance) Scarring Rash -Moisture (Yari-wound Skin Appearance) Assessed,Dry/ Scaly -Color (Yari-wound Skin Appearance) Erythema Assessed -Temperature (Yari-wound Skin No Abnormality No Abnormality Appearance) (Pt Warm) (Pt Warm) -Tenderness on Palpation (Yari-wound No No Skin Appearance) -Ulcer Cleansing Soap and Water Soap and Water -Foul Odor after Cleansing No No -Anesthetic Used 4% Lidocaine 4% Lidocaine Solution Solution Lower Limb Edema Present NA WC - Nurse 2 - General Ulcer CM Notes Start: 10/22/24 10:02 Freq: Status: Active Protocol: Activity Type Activity Date Activity User E-sign Co-sign Detail Recorded Client Recorded Date Recorded By Document 10/22/24 11:04 DS [id number] 10/22/24 11:05 DS Document 10/29/24 09:14 JF [id number] 10/29/24 09:20 10/22/24 10/29/24 11:04 09:14 Wound Center Nurse 2 #1 Astrid Valera -Time 11:04 09:16 -Correct Patient Yes Yes -Correct Side, Site, Position Yes Yes -Correct Procedure Yes Yes -Procedure Performed Yes Yes -Type of Procedure Incision & Debridement Drainage -Clinical Debridement Muscle / Fascia Muscle / Fascia -Tissue Removed Fascia Muscle,Fascia -Post Debridement (cm) - Length 5.0 4 -Post Debridement (cm) - Width 5.0 4 -Post Debridement (cm) - Depth 3 -Total Square (Post) (cm) 25.00 16 -Area of Debridement (cm) - Length 5.0 4 -Area of Debridement (cm) - Width 5.0 4 -Total Square (Area) (cm) 25.00 16 -Tunneling No -Undermining/Tunneling No -Circular Undermining No -Wound/Ulcer Outcome Not Healed Not Healed -Ulcer Cleansing Rinsed/ Irrigated with Saline -Foul Odor after Cleansing No -Bioengineered Tissue No -Injectable Lidocaine w/ Epi (%) 1 -Injectable Lidocaine w/ Epi (mls) 20 -Bleeding Controlled with Pressure Pressure -Treatment Response Procedure Procedure Tolerated Well Tolerated Well -Offloading No -Debridement - Muscle / Fascia, 1st No Yes 20sq cm -I&D / Paring / Biopsy I&D abscess - multiple or complicated Pain Scale: 0-10 Numeric Is Patient Pain Free? Yes Yes - Nurse 3 - General Ulcer D/C NN Start: 10/22/24 10:02 Freq: Status: Active Protocol: Activity Type Activity Date Activity User E-sign Co-sign Detail Recorded Client Recorded Date Recorded By Document 10/22/24 11:24 DL [id number] 10/22/24 11:26 DL Document 10/29/24 09:27 [id number] 10/29/24 09:28 10/22/24 10/29/24 11:24 09:27 Wound Care Center Nurse 3 #1 R Moraima -Ulcer Cleansing irrigated Rinsed/ and packed with Irrigated with Dakins Saline -Foul Odor after Cleansing No -Primary Dressing Applied Hysept -Other Dressing Dakins packing hydrogel -Primary Dressing Covered/Secured with Secured with Dry Gauze, Tape Secured with Tape -Other Covering ABD -Hysept 1 Treatment Response Procedure Tolerated Well Pain Scale: 0-10 Numeric Is Patient Pain Free? Yes Yes - Visit Discharge Discharge Condition Stable Stable Ambulatory Status Ambulatory Ambulatory Transportation Private Auto Private Auto Medication Reconcilliation completed & Yes provided to patient/care provider Clinical Summary of Care Provided Yes Assessment/Plan Assessment/Plan (1) Wound, open, back: CODE(S): S21.209A - Unspecified open wound of unspecified back wall of thorax without penetration into thoracic cavity, initial encounter (2) Diabetes: CODE(S): E11.9 - Type 2 diabetes mellitus without complications QUALIFIERS: Diabetes mellitus type: type 2 Diabetes mellitus half-way insulin use: without scalp specialist use Diabetes mellitus complication status: with hyperglycemia Qualified Code(s): E11.65 - Type 2 diabetes mellitus with hyperglycemia (3) Obesity: CODE(S): E66.9 - Obesity, unspecified QUALIFIERS: Obesity type: due to excess calories Obesity classification: adult class 1 (BMI 30 - 34.9) Serious obesity comorbidity presence: with serious comorbidity Body mass index: BMI 34.0-34.9 Qualified Code(s): E66.811 - Obesity, class 1; E66.09 - Other obesity due to excess calories; Z68.34 - Body mass index [BMI] 34.0-34.9, adult (4) Abscess: CODE(S): L02.91 - Cutaneous abscess, unspecified PLAN: Plan Assessment and Plan The patient is a 64-year-old male with a history of diabetes mellitus presenting a deep wound down to muscle measuring approximately 4 x 4 x 3 cm, 1 week out from abscess incision and drainage. The infection is currently controlled with Bactrim and wound packing, addressing a culture-confirmed MSSA infection. The patient's diabetes management is crucial for wound healing, with an A1c of 13 necessitating insulin therapy. The wound care plan includes regular irrigation and packing, with dressing changes recommended twice daily. 1. Diabetes Mellitus The patient's diabetes management is critical for wound healing, with an A1c of 13 necessitating insulin therapy to achieve better glycemic control. 2. Wound Infection The wound infection is being managed with Bactrim, targeting a culture-confirmed MSSA infection. The wound care plan includes regular irrigation and packing, with dressing changes recommended twice daily to promote healing. Follow-up in 2 weeks with me Infection appears controlled and the wound is open and healing - Continue taking Bactrim as prescribed to manage the infection (will finish 1 week course) - Maintain blood glucose control with insulin therapy to aid wound healing. - Change wound dressing twice daily to prevent infection and promote healing. - Schedule a follow-up appointment in two weeks or sooner if the condition worsens. 10/29/24 1015 <Electronically signed by Manpreet Joshi MD> Cosigner Signature (if applicable): CC: ~ Signed [facility] Work Phone: 1(559) 593-844307-28-2025 Evaluation note* Diagnosis Onset Date Resolution Status Admit Date Abscess acute October 29 9:00am Wound, open, back acute Katerin 28 th, 2025 9:00am Diabetes chronic October 29 9:00am Obesity chronic October 29 9:00am [facility] Work Phone: 1(460) 138-829007-28-2025 Evaluation note* Diagnosis Onset Date Resolution Status Admit Date Abscess acute October 29 9:00am Wound, open, back acute October 292024 9:00am Diabetes chronic October 29 9:00am Obesity chronic October 29 9:00am Wound, open, back acute November 26, 2024 10:15am [facility] Work Phone: 1(277) 704-351007-28-2025 Evaluation note* Diagnosis Onset Date Resolution Status Admit Date Abscess acute October 29 9:00am Wound, open, back acute October 292024 9:00am Diabetes chronic October 29 9:00am Obesity chronic October 29 9:00am Wound, open, back acute November 26, 2024 10:15am Wound, open, back acute 2024 9:22am [facility] Work Phone: 1(466) 371-942807-28-2025 Progress note [facility] [address] [place] [address] Progress Note - Wound Care 10/29/24 1010 MR#: [id number] Acct: [id number] Name: KAN SAENZ Rep #:[id number] : 1960 64 From: Manpreet Joshi MD PCP: Dr. Kyle Lucero, DO [facility] Location: History of Present Illness Date of Service: 10/29/24 History of Wound: HPI 22 October 2024: The patient is a 64-year-old male presenting with an abscess on the right upper back. Approximately4 to 5 weeks ago, the patient noticed a small red pimple on the right upper back, which progressed into an abscess. The abscess was initially incised and drained by Dr. Lucero, but it continued to drain and required further intervention. The patient has a history of diabetes mellitus with a significantly elevated A1cof 12.6, indicatingpoor glycemic control. He has been prescribed a new injectable medication for diabetes management, which he plans to start soon. ROS: - Integumentary: Reports abscess on right upper back - Endocrine: Reports diabetes mellitus with elevated A1c Attestation: Documentation on this patient encounter was supported using ambient scribe technology/ voice AI technology. The patient consented to recording for the purpose of documenting the encounter. Provider reviewed content of the generatednote prior to signature. Subjective Subjective CURRENT ENCOUNTER, 29 October 2024: Patient presents 1 week status post incision and drainage of right upper back abscess The patient is a 64-year-old male presenting with a wound infection in the context of diabetes mellitus. The patient has been experiencing elevated blood glucose levels, with a recent A1c of 13, necessitating the initiation of insulintherapy. The wound is described as deep, measuring approximately 4 x 4 x 3 cm, extending to the muscle and fascia, but without tunneling. The infection is currently controlled with antibiotics, specifically Bactrim, which was prescribed to address a culture-confirmed MSSA infection. The patient has been advised to maintain blood glucose control to facilitate wound healing. The wound care regimen includes regular irrigation and packing, with dressing changes recommended twice daily. ROS: - Endocrine: Reports elevated blood glucose levels, A1c of 13. - Integumentary: Reports deep wound, no tunneling, down to muscle and fascia. Attestation: Documentation on this patient encounter was supported using ambient scribe technology/ voice AI technology. The patient consented to recording for the purpose of documenting the encounter. Provider reviewed content of the generatednote prior to signature. Objective Data Objective Data Vital Signs: Vital Signs Temp Pulse Resp BP 97.6 F L 104 H 16 122/90 H 10/29/24 08:53 10/29/24 08:53 10/29/24 08:53 10/29/24 08:53 Weight: 216 lb 3.175 oz Body Mass Index (BMI) 34.9 Lab / Micro Data Micro: Microbiology 10/22/24 10:56 Wound - Shoulder Gram Stain - Final 10/22/24 10:56 Wound - Shoulder Wound Culture - Final Staphylococcus aureus 10/22/24 10:56 Wound - Shoulder Anaerobic Culture - Final No anaerobic bacteria isolated. Charges/Coding Procedures Integumentary 111xxx-113xx: [id number] Hannah musc/fascia 20 sq cm/< Physical Exam Narrative - Integumentary: Deep wound without tunneling, down to muscle and fascia, measuring approximately 4x 4 x 3 cm. No purulent drainage today but significant fibrinous exudate and necrotic abscess rind over the underlying muscle Const alert and oriented x3 Debridement Note Debridement Note Wound debrided: Right upper back wound Laterality: Right Wound Grade/Stage: Stage III down to underlying trapezius muscle Type of Debridement: Excisional debridement Anesthesia Used: 4% Lidocaine Solution Depth: to muscle (Trapezius muscle right upper back) Percentage of wound debrided: 100 Instrument Used: 7mm curette (Used for sharp excision of the wound bed) Tissue Removed: Necrotic fibrinous exudate and abscess rind on trapezius muscle at the base Severity: Necrosis of Muscle Amount of bleeding with debridement: Moderate Bleeding Controlled with: Compression and gauze Patient tolerated procedure: Patient tolerated procedure well Debridement Free Text: Wound was packed at the completion of the case. Post-Debridement Measurements and Additional Note: Post-Debridement Measurements/Treatment - Nurse 1 - General Ulcer Assessment Start: 10/22/24 10:02 Freq: Status: Active Protocol: SUZI.LIYAH Activity Type Activity Date Activity User E-sign Co-sign Detail Recorded Client Recorded Date Recorded By Document 10/22/24 10:06 THEO [id number] 10/22/24 10:18 DL Document 10/29/24 08:53 [id number] 10/29/24 09:02 10/22/24 10/29/24 10:06 08:53 - Today's Visit Information Type of service Initial Visit Follow-up Visit (Physician/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 ) Arrival Mode Ambulatory Ambulatory Transfer Assistance None Patient Identification Verified (Name & Yes Yes ) Patient Requires Transmission-Based No No Precautions Height and Weight Height 5 ft 6 in Weight 216 lb 3.175 oz Weight in Pounds 216.2 lbs Weight Measurement Method Estimated by Patient Body Mass Index (BMI) 34.9 34.9 BMI Classification Obese Obese Vital Signs Temperature (97.8 F-99.1 F) 98 F 97.6 F L Temperature Source Oral Temporal Pulse Rate (60-100) 111 H 104 H Pulse Location Monitor Monitor Respiratory Rate (12-18) 18 16 Respiratory rate source Observation Observation Blood Pressure (90/60-120/80) 140/96 H 122/90 H Blood Pressure Mean (mm Hg) 110 100 Source Monitor Monitor Position Semi-Fowlers Blood Pressure Location Left Arm History Since Last Visit- (Skip if this is Patient's initial visit) Have you changed medications since your Yes last visit? Any new allergies or adverse reactions No Had a fall/change in ADL's that may No increase risk of falls Signs or symptoms of abuse and/or No neglect since last visit Have you been in the hospital since your No last visit? Has dressing in place as prescribed Yes Has compression in place as prescribed N/A Has offloadiing in place as prescribed N/A Experienced any changes in pain level or No management Left Footwear Regular Shoe Right Footwear Regular Shoe Pain Scale: 0-10 Numeric Is Patient Pain Free? Yes Yes Communication Assessment Preferred language Jordanian Housing Specialist Required No Able to Read Yes Able to Write Yes Communication Tools None Right Hearing Abillity Normal Left Hearing Abillity Normal Visual Assistive Devices Glasses Teaching Assessment Preferences Verbal,Written Barriers to Learning None Readiness To Learn Good Willingness to Engage in Self Management Med Activies Readiness to Engage in Self Management Med Activities Anxiety Level Calm Cooperation Cooperative Perception Coherent Interest in Health Problem Asks Questions Education Importance Acknowledges Need Does Patient Smoke tobacco or other No substances Smoking Status Never smoker Is Patient Diabetic Yes Teaching: Wound Center Discharge Instructions -Person Taught Patient *Welcome to the Wound Center -Person Taught Patient WC - Nurse 1 - General Ulcer Measurement Start: 10/22/24 10:02 Freq: Status: Active Protocol: Activity Type Activity Date Activity User E-sign Co-sign Detail Recorded Client Recorded Date Recorded By Document 10/22/24 10:06 THEO [id number] 10/22/24 10:18 DL Document 10/29/24 08:53 JF [id number] 10/29/24 09:02 10/22/24 10/29/24 10:06 08:53 Wound Center Nurse 1 #1 R [place] -Combined with other wound No -Current Size (cm) - Length 1.1 4 -Current Size (cm) - Width 0.5 1.1 -Current Size (cm) - Depth 2.2 1.7 -Total Square Cm 0.55 4.4 -Photo Taken Yes Yes -Epithelialization Small 1-33% -Tunneling No -Undermining/Tunneling No -Circular Undermining No -Classification - Thickness Full Thickness without Exposed Support Structure -Exudate Amt Medium Large -Exudate Type Yellow/Green Serosanguineous -Wound Margin Distinct, Thickened Outline Attached -Granulation Amt Medium (34-66%) Medium (34-66%) -Granulation Quality [place] -Slough/Fibrin Yes -Necrosis Amt Medium (34-66%) Small (1-33%) -Necrotic Tissue Type Adherent Slough Adherent Slough -Structure Exposed N/A N/A -Texture (Yari-wound Skin Appearance) Scarring Rash -Moisture (Yari-wound Skin Appearance) Assessed,Dry/ Scaly -Color (Yari-wound Skin Appearance) Erythema Assessed -Temperature (Yari-wound Skin No Abnormality No Abnormality Appearance) (Pt Warm) (Pt Warm) -Tenderness on Palpation (Yari-wound No No Skin Appearance) -Ulcer Cleansing Soap and Water Soap and Water -Foul Odor after Cleansing No No -Anesthetic Used 4% Lidocaine 4% Lidocaine Solution Solution Lower Limb Edema Present NA WC - Nurse 2 - General Ulcer CM Notes Start: 10/22/24 10:02 Freq: Status: Active Protocol: Activity Type Activity Date Activity User E-sign Co-sign Detail Recorded Client Recorded Date Recorded By Document 10/22/24 11:04 DS [id number] 10/22/24 11:05 DS Document 10/29/24 09:14 [id number] 10/29/24 09:20 10/22/24 10/29/24 11:04 09:14 Wound Center Nurse 2 #1 R Moraima -Time 11:04 09:16 -Correct Patient Yes Yes -Correct Side, Site, Position Yes Yes -Correct Procedure Yes Yes -Procedure Performed Yes Yes -Type of Procedure Incision & Debridement Drainage -Clinical Debridement Muscle / Fascia Muscle / Fascia -Tissue Removed Fascia Muscle,Fascia -Post Debridement (cm) - Length 5.0 4 -Post Debridement (cm) - Width 5.0 4 -Post Debridement (cm) - Depth 3 -Total Square (Post) (cm) 25.00 16 -Area of Debridement (cm) - Length 5.0 4 -Area of Debridement (cm) - Width 5.0 4 -Total Square (Area) (cm) 25.00 16 -Tunneling No -Undermining/Tunneling No -Circular Undermining No -Wound/Ulcer Outcome Not Healed Not Healed -Ulcer Cleansing Rinsed/ Irrigated with Saline -Foul Odor after Cleansing No -Bioengineered Tissue No -Injectable Lidocaine w/ Epi (%) 1 -Injectable Lidocaine w/ Epi (mls) 20 -Bleeding Controlled with Pressure Pressure -Treatment Response Procedure Procedure Tolerated Well Tolerated Well -Offloading No -Debridement - Muscle / Fascia, 1st No Yes 20sq cm -I&D / Paring / Biopsy I&D abscess - multiple or complicated Pain Scale: 0-10 Numeric Is Patient Pain Free? Yes Yes - Nurse 3 - General Ulcer D/C NN Start: 10/22/24 10:02 Freq: Status: Active Protocol: Activity Type Activity Date Activity User E-sign Co-sign Detail Recorded Client Recorded Date Recorded By Document 10/22/24 11:24 DL [id number] 10/22/24 11:26 DL Document 10/29/24 09:27 JF [id number] 10/29/24 09:28 10/22/24 10/29/24 11:24 09:27 Wound Care Center Nurse 3 #1 R Moraima -Ulcer Cleansing irrigated Rinsed/ and packed with Irrigated with Dakins Saline -Foul Odor after Cleansing No -Primary Dressing Applied Hysept -Other Dressing Dakins packing hydrogel -Primary Dressing Covered/Secured with Secured with Dry Gauze, Tape Secured with Tape -Other Covering ABD -Hysept 1 Treatment Response Procedure Tolerated Well Pain Scale: 0-10 Numeric Is Patient Pain Free? Yes Yes - Visit Discharge Discharge Condition Stable Stable Ambulatory Status Ambulatory Ambulatory Transportation Private Auto Private Auto Medication Reconcilliation completed & Yes provided to patient/care provider Clinical Summary of Care Provided Yes Assessment/Plan Assessment/Plan (1) Wound, open, back: CODE(S): S21.209A - Unspecified open wound of unspecified back wall of thorax without penetration into thoracic cavity, initial encounter (2) Diabetes: CODE(S): E11.9 - Type 2 diabetes mellitus without complications QUALIFIERS: Diabetes mellitus type: type 2 Diabetes mellitus half-way insulin use: without scalp specialist use Diabetes mellitus complication status: with hyperglycemia Qualified Code(s): E11.65 - Type 2 diabetes mellitus with hyperglycemia (3) Obesity: CODE(S): E66.9 - Obesity, unspecified QUALIFIERS: Obesity type: due to excess calories Obesity classification: adult class 1 (BMI 30 - 34.9) Serious obesity comorbidity presence: with serious comorbidity Body mass index: BMI 34.0-34.9 Qualified Code(s): E66.811 - Obesity, class 1; E66.09 - Other obesity due to excess calories; Z68.34 -Body mass index [BMI] 34.0-34.9, adult (4) Abscess: CODE(S): L02.91 - Cutaneous abscess, unspecified PLAN: Plan Assessment and Plan The patient is a 64-year-old male with a history of diabetes mellitus presenting a deep wound down to muscle measuring approximately 4 x 4 x 3 cm, 1 week out from abscess incision and drainage. The infection is currently controlled with Bactrim and wound packing, addressing a culture-confirmed MSSAinfection. The patient's diabetes management is crucial for wound healing, with an A1c of 13 necessitating insulin therapy. The wound care plan includes regular irrigation and packing, with dressing changes recommended twice daily. 1. Diabetes Mellitus The patient's diabetes management is critical for wound healing, with an A1c of 13 necessitating insulin therapy to achieve better glycemic control. 2. Wound Infection The wound infection is being managed with Bactrim, targeting a culture-confirmed MSSA infection. The wound care plan includes regular irrigation and packing, with dressing changes recommended twice daily to promote healing. Follow-up in 2 weeks with me Infection appears controlled and the wound is open and healing - Continue taking Bactrim as prescribed to manage the infection (will finish 1 week course) - Maintain blood glucose control with insulin therapy to aid wound healing. - Change wound dressing twice daily to prevent infection and promote healing. - Schedule a follow-up appointment in two weeks or sooner if the condition worsens. 10/29/24 1015 Cosigner Signature (if applicable): CC: ~ Signed [facility]07-22-2025 History and physical note Author Manpreet Joshi [facility] Note Date/Time October 23, 2024 11:1 5am [facility] [address] [place] [address] H&P Exam - Wound Care 10/23/24 1108 MR#: [id number] Acct: [id number] Name: KAN SAENZ Rep #[id number] : 1960 64 From: Manpreet Joshi MD PCP: Dr. Kyle Lucero, DO Status:REG [facility] Location: History of Present Illness Date of Service: 10/22/24 History of Wound: The patient is a 64-year-old male presenting with an abscess on the right upper back. Approximately 4 to 5 weeks ago, the patient noticed a small red pimple on the right upper back, which progressed into an abscess. The abscess was initially incised and drained by Dr. Lucero, but it continued to drain and required further intervention. The patient has a history of diabetes mellitus with a significantly elevated A1cof 12.6, indicating poor glycemic control. He has been prescribed a new injectable medication for diabetes management, which he plans to start soon. ROS: - Integumentary: Reports abscess on right upper back - Endocrine: Reports diabetes mellitus with elevated A1c Attestation: Documentation on this patient encounter was supported using ambient scribe technology/ voice AI technology. The patient consented to recording for the purpose of documenting the encounter. Provider reviewed content of the generatednote prior to signature. [facility] Medical History Neuropathy Home Medications ?Medication ?Instructions ?Recorded ?Last Taken ?Type blood-glucose sensor (Dexcom G7 #3 ea 04/02/24 Unknown Rx Sensor device) glipizide 10 mg tablet 10 mg PO BID #60 tabs Unknown Rx lisinopril 10 mg tablet 10 mg PO QDAY 04/02/24 Unkno wn History metformin 500 mg tablet,extended 1,000 mg (2 x 500 mg) PO BID #120 04/02/24 Unknown Rx release 24 hr tabs multivitamin with minerals-folic 1 tab PO ONCE 4 Unknown History acid 80 mcg chewable tablet (Centrum Adult 50 Plus) omega 2-ykx-wsh-fish oil 60 mg-90 1 cap PO QDAY Unknown History mg-500 mg capsule (Fish Oil) pregabalin 300 mg capsule 300 mg PO BID 04/02/24 Unkno wn History simvastatin 20 mg tablet 20 mg PO QDAY 04/02/24 Unkno wn History sulfamethoxazole 800 1 tab PO Q12H 10/22/24 Unkno wn History mg-trimethoprim 160 mg tablet Allergy/AdvReac Type Severity Reaction Status Date / Time No Known Allergies Allergy Verified 04/02/24 14:02 Family History Father Diabetes Mother Myocardial infarction CVA (cerebral vascular accident) Surgical History H/O hernia repair History of appendectomy History of ear, nose, and throat (ENT) surgery Previous back surgery Social History Smoking Status: Never smoker alcohol intake: never substance use type: does not use what type of physical activity do you participate in: none Vital Signs Vital Signs Vital Signs: Weight Weight: 216 lb 3.175 oz Body Mass Index (BMI) 34.9 Physical Exam Narrative Right upper back with a swollen indurated with purulent drainage through her previous abscess I&D incision. There is definitely fluctuance and residual purulence with inflammatory rind/loculations Debridement Note Debridement Note Wound debrided: Right upper back abscess Laterality: Right Wound Grade/Stage: Abscess on the right upper back superficial to the muscle Type of Debridement: - (Incision and drainage with hemostat used to break up complex loculations) Anesthesia Used: - (20 cc of 1% lidocaine with 1-200,000 epinephrine) Depth: to muscle Percentage of wound debrided: 100 Instrument Used: #15 blade and - (Hemostat and scissors and forceps) Tissue Removed: Inflammatory rind from the abscess cavity as well as purulence Severity: Fat Layer Exposed Amount of bleeding with debridement: Moderate Bleeding Controlled with: Compression and gauze Patient tolerated procedure: Patient tolerated procedure well Debridement Free Text: 15 blade scalpel was used to make an incision longitudinally across the area of fluctuance over the 4 x 5 cm abscess cavity. The complex loculations were divided and excised as noted above. The wound was irrigated with copious amounts normal saline and Irrisept. It was packed with Irrisept soaked gauze. Post-Debridement Measurements and Additional Note: Post-Debridement Measurements/Treatment - Nurse 1 - General Ulcer Assessment Start: 10/22/24 10:02 Freq: Status: Active Protocol: SILAS Activity Type Activity Date Activity User E-sign Co-sign Detail Recorded Client Recorded Date Recorded By Document 10/22/24 10:06 THEO [id number] 10/22/24 10:18 DL 10/22/24 10:06 - Today's Visit Information Type of service Initial Visit Arrival Mode Ambulatory Transfer Assistance None Patient Identification Verified (Name & Yes ) Patient Requires Transmission-Based No Precautions Height and Weight Height 5 ft 6 in Weight 216 lb 3.175 oz Weight in Pounds 216.2 lbs Weight Measurement Method Estimated by Patient Body Mass Index (BMI) 34.9 BMI Classification Obese Vital Signs Temperature (97.8 F-99.1 F) 98 F Temperature Source Oral Pulse Rate (60-100) 111 H Pulse Location Monitor Respiratory Rate (12-18) 18 Respiratory rate source Observation Blood Pressure (90/60-120/80) 140/96 H Blood Pressure Mean 110 Source Monitor Pain Scale: 0-10 Numeric Is Patient Pain Free? Yes Communication Assessment Preferred language Jordanian Housing Specialist Required No Able to Read Yes Able to Write Yes Communication Tools None Right Hearing Abillity Normal Left Hearing Abillity Normal Visual Assistive Devices Glasses Teaching Assessment Preferences Verbal,Written Barriers to Learning None Readiness To Learn Good Willingness to Engage in Self Management Med Activies Readiness to Engage in Self Management Med Activities Anxiety Level Calm Cooperation Cooperative Perception Coherent Interest in Health Problem Asks Questions Education Importance Acknowledges Need Does Patient Smoke tobacco or other No substances Smoking Status Never smoker Is Patient Diabetic Yes Teaching: Wound Center Discharge Instructions -Person Taught Patient *Welcome to the Wound Center -Person Taught Patient WC - Nurse 1 - General Ulcer Measurement Start: 10/22/24 10:02 Freq: Status: Active Protocol: Activity Type Activity Date Activity User E-sign Co-sign Detail Recorded Client Recorded Date Recorded By Document 10/22/24 10:06 DL [id number] 10/22/24 10:18 DL 10/22/24 10:06 Wound Center Nurse 1 #1 Astrid Valera -Current Size (cm) - Length 1.1 -Current Size (cm) - Width 0.5 -Current Size (cm) - Depth 2.2 -Total Square Cm 0.55 -Photo Taken Yes -Classification - Thickness Full Thickness without Exposed Support Structure -Exudate Amt Medium -Exudate Type Yellow/Green -Wound Margin Distinct, Outline Attached -Granulation Amt Medium (34-66%) -Granulation Quality [place] -Necrosis Amt Medium (34-66%) -Necrotic Tissue Type Adherent Slough -Structure Exposed N/A -Texture (Yari-wound Skin Appearance) Scarring -Color (Yari-wound Skin Appearance) Erythema -Temperature (Yari-wound Skin No Abnormality Appearance) (Pt Warm) -Tenderness on Palpation (Yari-wound No Skin Appearance) -Ulcer Cleansing Soap and Water -Foul Odor after Cleansing No -Anesthetic Used 4% Lidocaine Solution WC - Nurse 2 - General Ulcer CM Notes Start: 10/22/24 10:02 Freq: Status: Active Protocol: Activity Type Activity Date Activity User E-sign Co-sign Detail Recorded Client Recorded Date Recorded By Document 10/22/24 11:04 DS [id number] 10/22/24 11:05 DS 10/22/24 11:04 Wound Center Nurse 2 -Time 11:04 -Correct Patient Yes -Correct Side, Site, Position Yes -Correct Procedure Yes -Procedure Performed Yes -Type of Procedure Incision & Drainage -Clinical Debridement Muscle / Fascia -Tissue Removed Fascia -Post Debridement (cm) - Length 5.0 -Post Debridement (cm) - Width 5.0 -Total Square (Post) (cm) 25.00 -Area of Debridement (cm) - Length 5.0 -Area of Debridement (cm) - Width 5.0 -Total Square (Area) (cm) 25.00 -Wound/Ulcer Outcome Not Healed -Injectable Lidocaine w/ Epi (%) 1 -Injectable Lidocaine w/ Epi (mls) 20 -Bleeding Controlled with Pressure -Treatment Response Procedure Tolerated Well -Debridement - Muscle / Fascia, 1st No 20sq cm -I&D / Paring / Biopsy I&D abscess - multiple or complicated Pain Scale: 0-10 Numeric Is Patient Pain Free? Yes WC - Nurse 3 - General Ulcer D/C NN Start: 10/22/24 10:02 Freq: Status: Active Protocol: Activity Type Activity Date Activity User E-sign Co-sign Detail Recorded Client Recorded Date Recorded By Document 10/22/24 11:24 DL [id number] 10/22/24 11:26 DL 10/22/24 11:24 Wound Care Center Nurse 3 #1 Astrid Valera -Ulcer Cleansing irrigated and packed with Dakins -Primary Dressing Applied Hysept -Other Dressing Dakins packing -Primary Dressing Covered/Secured with Secured with Tape -Other Covering ABD -Hysept 1 Treatment Response Procedure Tolerated Well Pain Scale: 0-10 Numeric Is Patient Pain Free? Yes WC - Visit Discharge Discharge Condition Stable Ambulatory Status Ambulatory Transportation Private Auto Lab / Micro Data Micro: Microbiology 10/22/24 10:56 Wound - Shoulder Gram Stain - Final 10/22/24 10:56 Wound - Shoulder Wound Culture - Preliminary Staphylococcus aureus Charges/Coding Visit Charges Office Visits / Consults: 17331 OV L3 New 30min (With 25 modifier for the procedure) Procedures Integumentary 10xxx: 86195 Drainage of skin abscess Assessment/Plan Assessment/Plan (1) Abscess: CODE(S): L02.91 - Cutaneous abscess, unspecified (2) Diabetes: CODE(S): E11.9 - Type 2 diabetes mellitus without complications QUALIFIERS: Diabetes mellitus type: type 2 Diabetes mellitus half-way insulin use: without nursing home use Diabetes mellitus complication status: with hyperglycemia Qualified Code(s): E11.65 - Type 2 diabetes mellitus with hyperglycemia PLAN: Plan Assessment and Plan The patient is a 64-year-old male with a history of diabetes mellitus presentingwith an abscess on the right upper back. The abscess has been persistent despiteinitial incision and drainage, likely due to the patient's poorly controlled diabetes, as indicated by an A1c that is severely elevated at 12.6. The plan includes further drainage and packing of the abscess to facilitate healing. (Seeoperative note as noted above) 1. Abscess On Right Upper Back The plan involves numbing the area and performing an incision to drain the abscess further, followed by packing with gauze to promote healing. The patient will be instructed on wound care, including packing changes twice daily. 2. Diabetes Mellitus With Elevated A1c The patient is advised to start a new injectable medication to improve glycemic control, which is crucial for wound healing. Monitoring of blood glucose levels and adherence to diabetes management is emphasized. Follow-up in 1 week Continue Bactrim for now Follow-up wound cultures which were taken at the time of the I&D of the abscess cavity 10/23/24 1115 <Electronically signed by Manpreet Joshi MD> Cosigner Signature (if applicable): CC: ~ Signed [facility] Work Phone: 1(552) 357-305407-22-2025 History and physical note [facility] [address] [place] [address] H&P Exam - Wound Care 10/23/24 1108 MR#: [id number] Acct: [id number] Name: KAN SAENZ Rep #:[id number] : 1960 64 From: Manpreet Joshi MD PCP: Dr. Kyle Lucero, DO Status:REG RCR Location: History of Present Illness Date of Service: 10/22/24 History of Wound: The patient is a 64-year-old male presenting with an abscess on the right upper back. Approximately 4 to 5 weeks ago, the patient noticed a small red pimple on the right upper back,which progressed into an abscess. The abscess was initially incised and drained by Dr. Lucero, but it continued to drain and required further intervention. The patient has a history of diabetes mellitus with a significantly elevated A1cof 12.6, indicatingpoor glycemic control. He has been prescribed a new injectable medication for diabetes management, which he plans to start soon. ROS: - Integumentary: Reports abscess on right upper back - Endocrine: Reports diabetes mellitus with elevated A1c Attestation: Documentation on this patient encounter was supported using ambient scribe technology/ voice AI technology. The patient consented to recording for the purpose of documenting the encounter. Provider reviewed content of the generatednote prior to signature. [facility] Medical History Neuropathy Home Medications ?Medication ?Instructions ?Recorded ?Last Taken ?Type blood-glucose sensor (Dexcom G7 #3 ea 04/02/24 Unknown Rx Sensor device) glipizide 10 mg tablet 10 mg PO BID #60 tabs Unknown Rx lisinopril 10 mg tablet 10 mg PO QDAY 04/02/24 Unkno wn History metformin 500 mg tablet,extended 1,000 mg (2 x 500 mg) PO BID #120 04/02/24 Unknown Rx release 24 hr tabs multivitamin with minerals-folic 1 tab PO ONCE 4 Unknown History acid 80 mcg chewable tablet (Centrum Adult 50 Plus) omega 6-tjz-hrx-fish oil 60 mg-90 1 cap PO QDAY Unknown History mg-500 mg capsule (Fish Oil) pregabalin 300 mg capsule 300 mg PO BID 04/02/24 Unkno wn History simvastatin 20 mg tablet 20 mg PO QDAY 04/02/24 Unkno wn History sulfamethoxazole 800 1 tab PO Q12H 10/22/24 Unkno wn History mg-trimethoprim 160 mg tablet Allergy/AdvReac Type Severity Reaction Status Date / Time No Known Allergies Allergy Verified 04/02/24 14:02 Family History Father Diabetes Mother Myocardial infarction CVA (cerebral vascular accident) Surgical History H/O hernia repair History of appendectomy History of ear, nose, and throat (ENT) surgery Previous back surgery Social History Smoking Status: Never smoker alcohol intake: never substance use type: does not use what type of physical activity do you participate in: none Vital Signs Vital Signs Vital Signs: Weight Weight: 216 lb 3.175 oz Body Mass Index (BMI) 34.9 Physical Exam Narrative Right upper back with a swollen indurated with purulent drainage through her previous abscess I&D incision. There is definitely fluctuance and residual purulence with inflammatory rind/loculations Debridement Note Debridement Note Wound debrided: Right upper back abscess Laterality: Right Wound Grade/Stage: Abscess on the right upper back superficial to the muscle Type of Debridement: - (Incision and drainage with hemostat used to break up complex loculations) Anesthesia Used: - (20 cc of 1% lidocaine with 1-200,000 epinephrine) Depth: to muscle Percentage of wound debrided: 100 Instrument Used: #15 blade and - (Hemostat and scissors and forceps) Tissue Removed: Inflammatory rind from the abscess cavity as well as purulence Severity: Fat Layer Exposed Amount of bleeding with debridement: Moderate Bleeding Controlled with: Compression and gauze Patient tolerated procedure: Patient tolerated procedure well Debridement Free Text: 15 blade scalpel was used to make an incision longitudinally across the areaof fluctuance over the 4 x 5 cm abscess cavity. The complex loculations were divided and excised asnoted above. The wound was irrigated with copious amounts normal saline and Irrisept. It was packedwith Irrisept soaked gauze. Post-Debridement Measurements and Additional Note: Post-Debridement Measurements/Treatment SUZI - Nurse 1 - General Ulcer Assessment Start: 10/22/24 10:02 Freq: Status: Active Protocol: SILAS Activity Type Activity Date Activity User E-sign Co-sign Detail Recorded Client Recorded Date Recorded By Document 10/22/24 10:06 THEO [id number] 10/22/24 10:18 DL 10/22/24 10:06 SUZI - Today's Visit Information Type of service Initial Visit Arrival Mode Ambulatory Transfer Assistance None Patient Identification Verified (Name & Yes ) Patient Requires Transmission-Based No Precautions Height and Weight Height 5 ft 6 in Weight 216 lb 3.175 oz Weight in Pounds 216.2 lbs Weight Measurement Method Estimated by Patient Body Mass Index (BMI) 34.9 BMI Classification Obese Vital Signs Temperature (97.8 F-99.1 F) 98 F Temperature Source Oral Pulse Rate (60-100) 111 H Pulse Location Monitor Respiratory Rate (12-18) 18 Respiratory rate source Observation Blood Pressure (90/60-120/80) 140/96 H Blood Pressure Mean 110 Source Monitor Pain Scale: 0-10 Numeric Is Patient Pain Free? Yes Communication Assessment Preferred language Jordanian Housing Specialist Required No Able to Read Yes Able to Write Yes Communication Tools None Right Hearing Abillity Normal Left Hearing Abillity Normal Visual Assistive Devices Glasses Teaching Assessment Preferences Verbal,Written Barriers to Learning None Readiness To Learn Good Willingness to Engage in Self Management Med Activies Readiness to Engage in Self Management Med Activities Anxiety Level Calm Cooperation Cooperative Perception Coherent Interest in Health Problem Asks Questions Education Importance Acknowledges Need Does Patient Smoke tobacco or other No substances Smoking Status Never smoker Is Patient Diabetic Yes Teaching: Wound Center Discharge Instructions -Person Taught Patient *Welcome to the Wound Center -Person Taught Patient WC - Nurse 1 - General Ulcer Measurement Start: 10/22/24 10:02 Freq: Status: Active Protocol: Activity Type Activity Date Activity User E-sign Co-sign Detail Recorded Client Recorded Date Recorded By Document 10/22/24 10:06 THEO [id number] 10/22/24 10:18 DL 10/22/24 10:06 Wound Center Nurse 1 #1 R Moraima -Current Size (cm) - Length 1.1 -Current Size (cm) - Width 0.5 -Current Size (cm) - Depth 2.2 -Total Square Cm 0.55 -Photo Taken Yes -Classification - Thickness Full Thickness without Exposed Support Structure -Exudate Amt Medium -Exudate Type Yellow/Green -Wound Margin Distinct, Outline Attached -Granulation Amt Medium (34-66%) -Granulation Quality [place] -Necrosis Amt Medium (34-66%) -Necrotic Tissue Type Adherent Slough -Structure Exposed N/A -Texture (Yari-wound Skin Appearance) Scarring -Color (Yari-wound Skin Appearance) Erythema -Temperature (Yari-wound Skin No Abnormality Appearance) (Pt Warm) -Tenderness on Palpation (Yari-wound No Skin Appearance) -Ulcer Cleansing Soap and Water -Foul Odor after Cleansing No -Anesthetic Used 4% Lidocaine Solution WC - Nurse 2 - General Ulcer CM Notes Start: 10/22/24 10:02 Freq: Status: Active Protocol: Activity Type Activity Date Activity User E-sign Co-sign Detail Recorded Client Recorded Date Recorded By Document 10/22/24 11:04 DS [id number] 10/22/24 11:05 DS 10/22/24 11:04 Wound Center Nurse 2 -Time 11:04 -Correct Patient Yes -Correct Side, Site, Position Yes -Correct Procedure Yes -Procedure Performed Yes -Type of Procedure Incision & Drainage -Clinical Debridement Muscle / Fascia -Tissue Removed Fascia -Post Debridement (cm) - Length 5.0 -Post Debridement (cm) - Width 5.0 -Total Square (Post) (cm) 25.00 -Area of Debridement (cm) - Length 5.0 -Area of Debridement (cm) - Width 5.0 -Total Square (Area) (cm) 25.00 -Wound/Ulcer Outcome Not Healed -Injectable Lidocaine w/ Epi (%) 1 -Injectable Lidocaine w/ Epi (mls) 20 -Bleeding Controlled with Pressure -Treatment Response Procedure Tolerated Well -Debridement - Muscle / Fascia, 1st No 20sq cm -I&D / Paring / Biopsy I&D abscess - multiple or complicated Pain Scale: 0-10 Numeric Is Patient Pain Free? Yes - Nurse 3 - General Ulcer D/C NN Start: 10/22/24 10:02 Freq: Status: Active Protocol: Activity Type Activity Date Activity User E-sign Co-sign Detail Recorded Client Recorded Date Recorded By Document 10/22/24 11:24 DL [id number] 10/22/24 11:26 DL 10/22/24 11:24 Wound Care Center Nurse 3 #1 Astrid Valera -Ulcer Cleansing irrigated and packed with Dakins -Primary Dressing Applied Hysept -Other Dressing Dakins packing -Primary Dressing Covered/Secured with Secured with Tape -Other Covering ABD -Hysept 1 Treatment Response Procedure Tolerated Well Pain Scale: 0-10 Numeric Is Patient Pain Free? Yes WC - Visit Discharge Discharge Condition Stable Ambulatory Status Ambulatory Transportation Private Auto Lab / Micro Data Micro: Microbiology 10/22/24 10:56 Wound - Shoulder Gram Stain - Final 10/22/24 10:56 Wound - Shoulder Wound Culture - Preliminary Staphylococcus aureus Charges/Coding Visit Charges Office Visits / Consults: 51291 OV L3 New 30min (With 25 modifier for the procedure) Procedures Integumentary 10xxx: [id number] Drainage of skin abscess Assessment/Plan Assessment/Plan (1) Abscess: CODE(S): L02.91 - Cutaneous abscess, unspecified (2) Diabetes: CODE(S): E11.9 - Type 2 diabetes mellitus without complications QUALIFIERS: Diabetes mellitus type: type 2 Diabetes mellitus half-way insulin use: without nursing home use Diabetes mellitus complication status: with hyperglycemia Qualified Code(s): E11.65 - Type 2 diabetes mellitus with hyperglycemia PLAN: Plan Assessment and Plan The patient is a 64-year-old male with a history of diabetes mellitus presentingwith an abscess on the right upper back. The abscess has been persistent despiteinitial incision and drainage, likely due to the patient's poorly controlled diabetes, as indicated by an A1c that is severely elevated at 12.6. The plan includes further drainage and packing of the abscess to facilitate healing. (Seeoperative note as noted above) 1. Abscess On Right Upper Back The plan involves numbing the area and performing an incision to drain the abscess further, followed by packing with gauze to promote healing. The patient will be instructed on wound care, including packing changes twice daily. 2. Diabetes Mellitus With Elevated A1c The patient is advised to start a new injectable medication to improve glycemic control, which is crucial for wound healing. Monitoring of blood glucose levels and adherence to diabetes management isemphasized. Follow-up in 1 week Continue Bactrim for now Follow-up wound cultures which were taken at the time of the I&D of the abscess cavity 10/23/24 1115 Cosigner Signature (if applicable): CC: ~ Signed [facility]11-07-2024 Instructions* Patient Instructions* Aura Tena APRN.TYPE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 - 02/09/2024 9:26 AM EST - Call podiatry schedule appointment eric -Dr. Sales ( [place]) -Dr. Jac Terry ( [place]) -Kyle Areval[facility] D.P.M. ( [facility] [phone] -[facility] ( [place]) [phone] -[facility] ( [place]) -[facility] [place] [place] Address: [address] [place] [address] [facility] [place], [place] Address: [address] [place] [id number] Keep Area Clean and Dry -Warm soaks with epsom salt one time daily followed by drying area fully and applying mupirocin as prescribed to left great toe nail -Keep area covered if exposed to contaminated environment or oozing/drainage otherwise can keep open to area - Go to ER for new or worsening symptoms -Stop bactrim DS -Start Doxycyline - Do not take with multivitamins or iron containing supplements - Take with full stomach and sit up right for 30-60 minutes after taking - Do not take with dairy/milk products - Can cause skin sensitivity [facility] NoteHNO ID: [id number] Author: AURA TENA APRN.TYPE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 Service: ? Author Type: Nurse Practitioner Type: Progress Notes Filed: 02/10/2024 14:12 Note Text: Kan Saenz [address] [id number] Age: [age] year old : 1960 (home) Encounter Date: 02/09/2024 Chief Complaint Ingrown Toenail (X yesterday noticed possible ingrown toenail left foot, big toe ) HPI Kan Saenz is a 63 year old male who presents for left great toe pain and redness. Pt reports hx of neuropathy, DM, HTN and dysmetabolic syndrome. He noticed redness of left great toe 5 days ago. He has been wrapping left great toe with large bandage and washing with peroxide. This morning removed bandage and had skin remove with bandage causing bleeding and exposure of nail. He reports having blood tinged slow oozing when bandage removed. He reports redness is unchanged from onset. Area is not painful per patient secondary to neuropathy. Denies fever, chills, body aches, L foot or ankle pain, foot or ankle swelling, red streaking, warmth, purulent or foul smelling drainage. Continues to bear weight without difficult. Tdap UTD. He previously has not seen podiatry. The history is provided by the patient and medical records. No english as a second language teacher was used. History PAST MEDICAL HISTORY Diagnosis Date Diabetes (HCC) Diarrhea Dysmetabolic syndrome X Essential hypertension, benign Other and unspecified hyperlipidemia Snoring Urinary calculus, unspecified Renal stones PAST SURGICAL HISTORY Procedure Laterality Date APPENDECTOMY COLONOSCOP W/ OR W/O [facility] SPEC 06/13/2006 Colonoscopy COLONOSCOP W/ OR W/O [facility] SPEC 11/22/2016 Colonoscopy COLONOSCOP W/ OR W/O [facility] SPEC 11/22/2016 Colonoscopy PAST SURGICAL HISTORY OF 06/2014 back surgery REMOVAL OF TONSILS,<12 Y/O Tonsillectomy REPAIR ING HERNIA,5+Y/O,REDUCIBL Hernia repair, inguinal ALLERGIES Patient has no known allergies. MEDICATIONS sulfamethoxazole-trimethoprim (BACTRIM DS) 800-160 mg per tablet Take 1 tablet by mouth every 12 hours. pregabalin (LYRICA) 75 mg capsule Take 75 mg by mouth twice daily. metFORMIN (GLUCOPHAGE) 1,000 mg tablet Take 1 tablet by mouth once daily. pioglitazone (ACTOS) 30 mg tablet Take 30 mg by mouth once daily. atorvastatin (LIPITOR) 10 mg tablet Take 10 mg by mouth once daily. lisinopril 10 mg tablet Take 1 tablet by mouth once daily. Blood-Glucose Meter (RELION PRIME) misc Meter Kit aspirin(BONI LOW STRENGTH 81 MG TAB) Take one(1) tablet every other day. MULTIVITAMIN,BM-AUEZ-[id number] TAB Take one(1) tablet daily. naproxen (NAPROSYN) 500 mg tablet Take 1 tablet by mouth twice daily with meals. (Patient not taking: Reported on 02/09/2024) tiZANidine (ZANAFLEX) 4 mg tablet Take 1 tablet by mouth as needed. (Patient not taking: Reported on 02/09/2024) Point Comfort-3 Fatty Acids (FISH OIL) 500 mg cap Take 1 capsule by mouth once daily. lancets(SOFTCLIX LANCETS) Test blood sugars daily, 250.00, insulin (Patient not taking: Reported on 02/09/2024) No family history on file. Social History Tobacco Use Smoking status: Never Smokeless tobacco: Never Substance Use Topics Alcohol use: Yes Comment: rarely Drug use: No Review of Systems See HPI Vitals BP 130/84 Pulse 98 Temp 36.7 ?C (98 ?F) (Oral) Resp 18 SpO2 97% Physical Exam Physical Exam Constitutional: General: He is not in acute distress. Appearance: Normal appearance. He is well-developed and normal weight. He is not ill-appearing, toxic-appearing or diaphoretic. Comments: Sitting in exam room in no acute distress HENT: Head: Normocephalic. Mouth/Throat: Lips: [place]. Mouth: Mucous membranes are moist. Pharynx: Uvula midline. No pharyngeal swelling, oropharyngeal exudate or posterior oropharyngeal erythema. Cardiovascular: Rate and Rhythm: Normal rate and regular rhythm. Pulses: Dorsalis pedis pulses are 2+ on the right side and 2+ on the left side. Posterior tibial pulses are 2+ on the right side and 2+ on the left side. Heart sounds: S1 normal and S2 normal. Pulmonary: Effort: Pulmonary effort is normal. No accessory muscle usage or respiratory distress. Breath sounds: Normal breath sounds and air entry. No stridor, decreased air movement or transmitted upper airway sounds. No decreased breath sounds, wheezing, rhonchi or rales. Musculoskeletal: Right foot: Normal range of motion. No deformity, bunion, foot drop or prominent metatarsal heads. Left foot: Normal range of motion. No deformity, bunion, foot drop or prominent metatarsal heads. Feet: Feet: Right foot: Skin integrity: No ulcer, blister, skin breakdown, erythema, warmth, callus, dry skin or fissure. Left foot: Skin integrity: Erythema present. No ulcer, blister, skin breakdown, warmth, callus, dry skin or fissure. Toenail Condition: Left toenails are ingrown. Comments: + erythema ex (more content not included)...[facility] 02-09-2024 History of Present illness Narrative* Aura Tena APRN.TYPE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 - 02/09/2024 9:03 AM EST Images from the original note were not included. Kan Saenz [address] [address] Age: [age] year old : 1960 (home) Encounter Date: 02/09/2024 Chief Complaint Ingrown Toenail (X yesterday noticed possible ingrown toenail left foot, big toe ) HPI Kan Saenz is a 63 year old male who presents for left great toe pain and redness. Pt reports hx of neuropathy, DM, HTN and dysmetabolic syndrome. He noticed redness of left great toe 5 days ago. He has been wrapping left great toe with large bandage and washing with peroxide. This morning removed bandage and had skin remove with bandage causing bleeding and exposure of nail. He reports having blood tinged slow oozing when bandage removed. He reports redness is unchanged from onset. Area is not painful per patient secondary to neuropathy. Denies fever, chills, body aches, L foot or ankle pain, foot or ankle swelling, red streaking, warmth, purulent or foul smelling drainage. Continues to bear weight without difficult. Tdap UTD. He previously has not seen podiatry. The history is provided by the patient and medical records. No english as a second language teacher was used. History PAST MEDICAL HISTORY Diagnosis Date Diabetes (HCC) Diarrhea Dysmetabolic syndrome X Essential hypertension, benign Other and unspecified hyperlipidemia Snoring Urinary calculus, unspecified Renal stones PAST SURGICAL HISTORY Procedure Laterality Date APPENDECTOMY COLONOSCOP W/ OR W/O [facility] SPEC 06/13/2006 Colonoscopy COLONOSCOP W/ OR W/O [facility] SPEC 11/22/2016 Colonoscopy COLONOSCOP W/ OR W/O [facility] 11/22/2016 Colonoscopy PAST SURGICAL HISTORY OF 06/2014 back surgery REMOVAL OF TONSILS,<12 Y/O Tonsillectomy REPAIR ING HERNIA,5+Y/O,REDUCIBL Hernia repair, inguinal ALLERGIES Patient has no known allergies. MEDICATIONS sulfamethoxazole-trimethoprim (BACTRIM DS) 800-160 mg per tablet Take 1 tablet by mouth every 12 hours. pregabalin (LYRICA) 75 mg capsule Take 75 mg by mouth twice daily. metFORMIN (GLUCOPHAGE) 1,000 mg tablet Take 1 tablet by mouth once daily. pioglitazone (ACTOS) 30 mg tablet Take 30 mg by mouth once daily. atorvastatin (LIPITOR) 10 mg tablet Take 10 mg by mouth once daily. lisinopril 10 mg tablet Take 1 tablet by mouth once daily. Blood-Glucose Meter (RELION PRIME) misc Meter Kit aspirin(BONI LOW STRENGTH 81 MG TAB) Take one(1) tablet every other day. MULTIVITAMIN,MO-TFSS-KSROFSOM TAB Take one(1) tablet daily. naproxen (NAPROSYN) 500 mg tablet Take 1 tablet by mouth twice daily with meals. (Patient not taking: Reported on 02/09/2024) tiZANidine (ZANAFLEX) 4 mg tablet Take 1 tablet by mouth as needed. (Patient not taking: Reported on 02/09/2024) [place] Comfort-3 Fatty Acids (FISH OIL) 500 mg cap Take 1 capsule by mouth once daily. lancets(SOFTCLIX LANCETS) Test blood sugars daily, 250.00, insulin (Patient not taking: Reported on02/09/2024) No family history on file. Social History Tobacco Use Smoking status: Never Smokeless tobacco: Never Substance Use Topics Alcohol use: Yes Comment: rarely Drug use: No Review of Systems See HPI Vitals BP 130/84 Pulse 98 Temp 36.7 C (98 F) (Oral) Resp 18 SpO2 97% Physical Exam Physical Exam Constitutional: General: He is not in acute distress. Appearance: Normal appearance. He is well-developed and normal weight. He is not ill-appearing, toxic-appearing or diaphoretic. Comments: Sitting in exam room in no acute distress HENT: Head: Normocephalic. Mouth/Throat: Lips: [place]. Mouth: Mucous membranes are moist. Pharynx: Uvula midline. No pharyngeal swelling, oropharyngeal exudate or posterior oropharyngeal erythema. Cardiovascular: Rate and Rhythm: Normal rate and regular rhythm. Pulses: Dorsalis pedis pulses are 2+ on the right side and 2+ on the left side. Posterior tibial pulses are 2+ on the right side and 2+ on the left side. Heart sounds: S1 normal and S2 normal. Pulmonary: Effort: Pulmonary effort is normal. No accessory muscle usage or respiratory distress. Breath sounds: Normal breath sounds and air entry. No stridor, decreased air movement or transmitted upper airway sounds. No decreased breath sounds, wheezing, rhonchi or rales. Musculoskeletal: Right foot: Normal range of motion. No deformity, bunion, foot drop or prominent metatarsal heads. Left foot: Normal range of motion. No deformity, bunion, foot drop or prominent metatarsal heads. Feet: Feet: Right foot: Skin integrity: No ulcer, blister, skin breakdown, erythema, warmth, callus, dry skin or fissure. Left foot: Skin integrity: Erythema present. No ulcer, blister, skin breakdown, warmth, callus, dry skin or fissure. Toenail Condition: Left toenails are ingrown. Comments: + erythema extending to distal portion of left great toe surrounding left great toe lateral and medial aspect. Lateral nail fold with partial jagged skin flap with dried crusted blood along nail fold exposing partial lateral nail edge Distal nail edge with jagged appearance There is no swelling, warmth to palpation, drainage, crepitus, bruising, streaking, fluctuance, induration, fluctuance, scaling, skin peeling, pain out of proportion appreciated. Skin: General: Skin is warm and dry. Capillary Refill: Capillary refill takes less than 2 seconds. Comments: See FOOT Neurological: Mental Status: He is alert. Psychiatric: Behavior: Behavior is cooperative. ASSESSMENT/PLAN: 1. Ingrown toenail - ICD9: 703.0, ICD10: L60.0 (primary diagnosis) - Stop bactrim - Start doxycyline -Warm epsom salt soaks 1-2x daily and COMPLETELY DRY apply bacroban to L great toe - Follow up with podiatry in [facility] - ER precautions discussed - Keep area clean and dry - CONSULT TO PODIATRY - DOXYCYCLINE MONOHYDRATE 100 MG TABLET - MUPIROCIN 2 % TOPICAL OINTMENT 2. Pain of toe of left foot - ICD9: 729.5, ICD10: M79.675 -See above - CONSULT TO PODIATRY - DOXYCYCLINE MONOHYDRATE 100 MG TABLET - MUPIROCIN 2 % TOPICAL OINTMENT Aura Tena APRN.TYPE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 All pertinent side effects, risks, benefits and precautions of suggested treatments were discussed in detail. Patient understands and agrees with above treatment plan. Differential diagnosis and treatment options discussed with patient and questions answered - agreeswith plan. Communication and follow up are stressed. The patient was discharged home with verbal and written instructions. They were instructed to return as needed for persistent or worsening symptoms or any new concerns. POC as above. Patient was in agreement with this plan of care and all questions were answered at the time of discharge. Electronically Signed by: Aura Tena APRN.CNP February 09, 2024 9:03 AM documented in this encounterW[facility]ot [facility]03-[facility]23 Instructions* Patient Instructions* Cynthia Guan PA-C - 06/03/2022 9:23 AM EST Start naproxen twice daily with meals Tizanidine 4mg as needed at night, makes you tired so you should drive or work on medication Heating pad Follow up with dentist in 1-2 weeks, return sooner if worsening Pain & the TMJ What is the TMJ? You may not have ever heard of it, but you use it hundreds of times every day. It is the Temporo-Mandibular Joint, the joint where the mandible (the lower jaw) joins the temporal bone of the skull, immediately in front of the ear on each side of the head. Each time you chew you move it. But you also move it every time you talk and every time you swallow (every three minutes or so). It is, therefore, one of the most frequently used of all the joints of the body. You can locate that joint by putting your finger on the triangular structure in front of your ear. Then move your finger just slightly forward and press firmly while you open your jaw all the way open and shut. The motion you feel is in the TMJ. You can also feel the joint motion if you put your little finger down into your ear canal with the fingernail backwards. Then press forward as you open an d close your jaw again. These maneuvers can cause considerable discomfort to a patient who is having TMJ trouble, and physicians do this to patients for diagnosis. How Does the TMJ Work? When you bite down forcefully, you not only put force on the object between your teeth, but also onthe joint. In terms of physics, the jaw is the lever and the TMJ is the fulcrum. Actually, more force is applied (per square inch) to the joint surface than to whatever is between your teeth. To accommodate for such forces, and to prevent too much wear and tear from occurring in one spot within thejoint space, the joint was designed to be a sliding joint, rather than the usual punh-lie-vootit type joint, (such as the hip and shoulder, for example). Therefore, the forces of chewing can be distributed over a wider surface in the joint space, which dissipates the wear and tear and allows healing to rapidly occur in between chewing times. Joints are lined with cartilage (gristle), which is a rubbery, slippery material that allows for smooth motion. How Can Things Go Wrong With the TMJ? If you habitually clench or grit or grind your teeth, you increase the wear on the cartilage liningof the joint. Many persons grind their teeth and they do not know it unless an observant roommate tells them so. If you habitually chew gum much of the day, again, you increase the wear and tear on the joint and you give it little opportunity to recover between meals, as it ought to have. If you trino w habitually only on one side of your mouth, you concentrate all the pressure on one side rather than equally on both sides, and too much wear occurs on the joint of that side. This often occurs if you have a tooth problem on one side, or recent dental work, that causes you to favor one side over the other. Teeth that do not fit together properly are often at fault. This is called an improper bite. imagine how much extra pressure the TMJ must endure during each chew when teeth on one side come together before those on the opposite side do. In each of the above circumstances, a faulty chewing pattern takes place that creates one focus of wear in the cartilage lining of the joint space. When that spot wears down to the nerve endings, pain occurs. A form of arthritis occurs (traumatic type) which is called TMJ dysfunction. (Dysfunction means faulty or painful function.) How Does TMJ Dysfunction Feel? The pain may be sharp and searing, occurring each time you swallow, yawn, talk or chew; or it may be dull, constant and boring. The usual focus of pain is over the joint, immediately in front of the ear, but pain can also radiate elsewhere. The pain often causes spasm in the adjacent muscles which are attached to the bones of the skull, face, and jaws. Therefore, pain can be felt at the side of the head (the gnosticist), the cheek, the lower jaw, and the teeth. Some people have attributed migraine,sinus trouble and backaches to the TMJ, but that would be difficult to explain with our present-dayknowledge of anatomy and physiology. A very common focus of pain is in the ear. Many patients come to the gear room keeper quite convincedtheir pain is from an ear infection. When an earache is not associated with a hearing loss, and theeardrum looks normal, the doctor will consider the possibility that the pain comes from TMJ dysfunction. There are a few other symptoms besides pain that TMJ dysfunction can cause. In some patients the TMJ make popping, clicking or grinding sounds when the jaws are opened widely. Cr they can lock wide open (dislocated), or, at the other extreme, they can prevent the jaws from fully opening up. Some people get ringing in their ears from TMJ trouble, which is an exaggeration of the ear ringing that most people can normally produce by clenching their teeth together hard. What Can Be Done For TMJ Dysfunction? If yours is a mild case and one that has been detected fairly early, it will probably respond to these simple self-help remedies: 1. Chew evenly, left vs. right. 2. Stop clenching, gritting or grinding teeth. 3. Stop chewing gum. 4. Avoid hard chewy foods. 5. Apply heating pad for a half hour at least twice daily. 6. Take aspirin (or buffered aspirin) or other anti-inflammatory medicines in a dose your doctor recommends. Items 1-4 are intended to reduce the amount of wear and injury that the joint suffers. Items 5 and 6 are to encourage the healing processes. Aspirin and other anti-inflammatory medicines are very effective for reducing inflammation in joints, which is why patients use them for arthritis They are very effective for TMJ dysfunction too. Checking for dental problems and readjusting your bite can help. Stubborn cases of TMJ dysfunction may require further consultation with an oral surgeon or dentist. Your dentist can fit you with a splint to open your bite and decrease bruxism (grinding your teeth while sleeping.) 1995. [employer] This leaflet is published as apublic service. The material may be freely used for noncommercial purposes so long as attribution is given to the [employer] [place] [address] documented in this encounterWyandot [facility] Hospital03-02-2023 History of Present illness Narrative* Cynthia Guan PA-C - 06/03/2022 9:14 AM EST Images from the original note were not included. [facility] PATIENT NAME: Kan Saenz DATE OF : 1960 TODAYS' DATE: 06/03/2022 Chief Complaint: Lump in the jaw (Left lower jaw - X3 weeks - just below the ear radiating into thejaw.) History of Present Illness: Mr. Saenz is a 61 year old male w/ c/o left sided jaw pain x 3 weeks. Began about 3 weeks ago with sensation in the left side of jaw when he was eating. Progressively worsening pain and now has noticed a lump behind his ear. There is pain with eating. When he puts pressure on the area the pain is 10/10. He has been taking aspirin or tylenol for his symptoms with mildrelief. PMHx of DM II, HTN. Review of Systems: Review of Systems Constitutional: Negative for chills, fatigue and fever. HENT: Negative for congestion, dental problem, ear discharge, ear pain, postnasal drip, rhinorrhea,sore throat and trouble swallowing. Respiratory: Negative for cough and shortness of breath. Cardiovascular: Negative for chest pain. Gastrointestinal: Negative for abdominal pain, constipation, diarrhea, nausea and vomiting. Neurological: Negative for dizziness, light-headedness and headaches. Allergies: Allergies: No Known Allergies Past Medical History: PAST MEDICAL HISTORY Diagnosis Date Diabetes (HCC) Diarrhea Dysmetabolic syndrome X Essential hypertension, benign Other and unspecified hyperlipidemia Snoring Urinary calculus, unspecified Renal stones Past Surgical History: PAST SURGICAL HISTORY Procedure Laterality Date APPENDECTOMY COLONOSCOP W/ OR W/O [facility] SPEC 06/13/2006 Colonoscopy COLONOSCOP W/ OR W/O [facility] SPEC 11/22/2016 Colonoscopy COLONOSCOP W/ OR W/O [facility] SPEC 11/22/2016 Colonoscopy PAST SURGICAL HISTORY OF 06/2014 back surgery REMOVAL OF TONSILS,<12 Y/O Tonsillectomy REPAIR ING HERNIA,5+Y/O,REDUCIBL Hernia repair, inguinal Family History: No family history on file. Social History: Social History Tobacco Use Smoking status: Never Smokeless tobacco: Never Substance Use Topics Alcohol use: Yes Comment: rarely Drug use: No Medications: Current Outpatient Medications Medication Sig Dispense Refill pregabalin (LYRICA) 75 mg capsule Take 75 mg by mouth twice daily. metFORMIN (GLUCOPHAGE) 1,000 mg tablet Take 1 tablet by mouth once daily. pioglitazone (ACTOS) 30 mg tablet Take 30 mg by mouth once daily. lisinopril 10 mg tablet Take 1 tablet by mouth once daily. 30 tablet 5 Blood-Glucose Meter (RELION PRIME) misc Meter Kit 0 [place]-3 Fatty Acids (FISH OIL) 500 mg cap Take 1 capsule by mouth once daily. 0 aspirin(BONI LOW STRENGTH 81 MG TAB) Take one(1) tablet every other day. 0 0 lancets(SOFTCLIX LANCETS) Test blood sugars daily, 250.00, insulin 100 11 MULTIVITAMIN,XT-DUUL-VVYAUEOH TAB Take one(1) tablet daily. 0 0 naproxen (NAPROSYN) 500 mg tablet Take 1 tablet by mouth twice daily with meals. 60 tablet 0 tiZANidine (ZANAFLEX) 4 mg tablet Take 1 tablet by mouth as needed. 15 tablet 0 atorvastatin (LIPITOR) 10 mg tablet Take 10 mg by mouth once daily. No current facility-administered medications for this visit. Vitals: BP 112/76 (BP Site: Left Arm, BP Position: Sitting, BP Cuff Size: Large Adult) Pulse (!) 122 Temp 37.1 C (98.7 F) (Oral) Resp 18 Wt 90.3 kg (199 lb) SpO2 97% BMI 31.17 kg/m Physical Exam: Physical Exam Constitutional: General: He is not in acute distress. Appearance: Normal appearance. He is normal weight. He is not ill-appearing, toxic-appearing or diaphoretic. HENT: Head: Normocephalic and atraumatic. Jaw: There is normal jaw occlusion. Tenderness and pain on movement (left side of jaw at the TMJ) present. No trismus or swelling. Comments: + crepitus noted on the left TMJ upon movement. No swelling of neck or submandibular swelling noted. Right Ear: Tympanic membrane and external ear normal. No drainage, swelling or tenderness. No middle ear effusion. There is no impacted cerumen. No foreign body. No mastoid tenderness. Tympanic membrane is not injected, scarred, perforated, erythematous, retracted or bulging. Left Ear: Tympanic membrane and external ear normal. No drainage, swelling or tenderness. No middleear effusion. There is no impacted cerumen. No foreign body. No mastoid tenderness. Tympanic membrane is not injected, scarred, perforated, erythematous, retracted or bulging. Nose: Nose normal. Mouth/Throat: Lips: [place]. No lesions. Mouth: Mucous membranes are moist. Dentition: Normal dentition. No dental tenderness, dental caries or dental abscesses. Pharynx: Uvula midline. No pharyngeal swelling, oropharyngeal exudate, posterior oropharyngeal erythema or uvula swelling. Tonsils: No tonsillar exudate or tonsillar abscesses. 1+ on the right. 1+ on the left. Eyes: Conjunctiva/sclera: Conjunctivae normal. Neck: Comments: No left sided pre auricle lymphadenopathy noted Cardiovascular: Rate and Rhythm: Normal rate and regular rhythm. Pulses: Normal pulses. Heart sounds: Normal heart sounds. No murmur heard. No friction rub. No gallop. Pulmonary: Effort: Pulmonary effort is normal. No respiratory distress. Breath sounds: Normal breath sounds. No stridor. No wheezing, rhonchi or rales. Musculoskeletal: Cervical back: Full passive range of motion without pain, normal range of motion and neck supple. No rigidity or tenderness. No pain with movement. Normal range of motion. Lymphadenopathy: Cervical: No cervical adenopathy. Right cervical: No superficial or posterior cervical adenopathy. Left cervical: No superficial or posterior cervical adenopathy. Skin: General: Skin is warm and dry. Capillary Refill: Capillary refill takes less than 2 seconds. Neurological: General: No focal deficit present. Mental Status: He is alert and oriented to person, place, and time. Psychiatric: Mood and Affect: Mood normal. Behavior: Behavior normal. Thought Content: Thought content normal. Impression/Plan ASSESSMENT/PLAN: 1. TMJ dysfunction - ICD9: 524.60, ICD10: M26.609 - Suspect possible TMJ dysfunction of left side, given crepitus and pain of TMJ. There is no cervical lymphadenopathy or neck swelling to suggest abscess, no abnormal dentition noted. There is no swelling of the parotid gland. - Start naproxen 500mg bid w/ meals. - Tizanidine 4mg prn at night, pt aware to not drive or work while on this medication. - Heating pad several times daily. - Avoid hard/crunchy or chewy foods - F/u with Dentist in 1-2 weeks if no improvement, return sooner if worsening or new symptoms develop. - NAPROXEN 500 MG TABLET - TIZANIDINE 4 MG TABLET Cynthia Guan PA-C 06/03/22 9:14 AM All pertinent side effects, risks, benefits and precautions of suggested treatments were discussed in detail. Patient understands and agrees with above treatment plan. Differential diagnosis and treatment options discussed with patient and questions answered - agreeswith plan. Communication and follow up are stressed. The patient was discharged home with verbal and written instructions. They were instructed to return as needed for persistent or worsening symptoms or any new concerns. POC as above. Patient was in agreement with this plan of care and all questions were answered at the time of discharge. documented in this encounterW[facility]ot [facility]01-23-2012 History of Past illness Narrative* Problem Noted Date Resolved Date Cellulitis and abscess of toe, unspecified 04/2602/13/2013 GLUCOSE ABNORMAL TEST 09/06/2005 02/13/2013 Dysmetabolic syndrome X 02/14/20 13 Diarrhea 02/13/2013 documented as of this encounter (statuses as of 06/03/2022) [facility] Diagnosis TMJ dysfunction- Primary Temporomandibular joint disorders, unspecified documented in this encounter [facility] noteNo assessment information availableWKettering Health [facility] Work Phone: Evaluation note* Diagnosis Ingrown toenail- Primary Ingrowing nail Pain of toe of left foot Pain in limb documented in this encounter [facility] (narrative)No reason for referral information availableWKettering [facility] Work Phone: Summary Purpose Family History No Family History Records Found Relationship Condition Age at Onset Recorded Date/T rosas father Diabetes mellitus Unknown mother Myocardial infarction Unknown Cerebrovascular accident (CVA) Unknown Advance Directives No Advanced Directives Records FoundLatest Code Status on File Code Status Date Activated Date Inactivated Comments Full Code 08/06/2014 2:06 PM 08/09/2014 8:13 PM Documents on File Type Date Recorded Patient Manager Inventory Control Expl anation Advance Directive(s) 11/22/2016 10:14 AM Documents on File Type Date Recorded Patient Manager Inventory Control Expl anation Advance Directive(s) 11/22/2016 10:14 AM Date Activated Date Inactivated Comments 08/06/2014 2:06 PM 08/09/2014 8:13 PM Reason for Referral Specialty Diagnoses / Procedures Referred By Savanna t Referred To Contact Podiatry Diagnoses Pain of toe of left foot Ingrown toenail Procedures CONSULT TO PODIATRY OFFICE/OUTPATIENT [facility] 60 MINUTES Aura Tena, LINING VAMPER.[employer]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 [address] [place] [address] Referral ID Status Reason Start Date Expiration Date Visits Requested Visits Authorized [id number] Authorized PCP Requested Referral 02/09/2024 02/08/2025 1 1 Chief Complaint and Reason for Visit Chief Complaint Admit Date LABSPEC October 02, 2024 12:13 pm Chief Complaint Admit Date LABSPEC October 02, 2024 12:13 pm wound October 23, 2024 11:0 8am wound October 29, 2024 9:00 am wound October 29, 2024 10:1 0am Reason for Visit Admit Date Abscess October 29, 2024 9:00 am Wound, open, back October 29, 2024 9:00 am Diabetes October 29, 2024 9:00 am Obesity October 29, 2024 9:00 am Chief Complaint Admit Date LABSPEC October 02, 2024 12:13 pm wound October 22, 2024 12:0 0pm wound October 29, 2024 9:00 am wound October 29, 2024 10:1 0am wound November 12, 2024 1: 25pm wound November 26, 2024 10 :15am Reason for Visit Admit Date Abscess October 29, 2024 9:00 am Wound, open, back October 29, 2024 9:00 am Diabetes October 29, 2024 9:00 am Obesity October 29, 2024 9:00 am Wound, open, back November 26, 2024 10 :15am Chief Complaint Admit Date LABSPEC October 02, 2024 12:13 pm wound October 22, 2024 12:0 0pm wound October 29, 2024 9:00 am wound October 29, 2024 10:1 0am wound November 12, 2024 1: 25pm wound November 26, 2024 10 :15am wound December 10, 2024 9:22am wound December 11, 2024 10:01am Reason for Visit Admit Date Abscess October 29, 2024 9:00 am Wound, open, back October 29, 2024 9:00 am Diabetes October 29, 2024 9:00 am Obesity October 29, 2024 9:00 am Wound, open, back November 26, 2024 10 :15am Wound, open, back December 10, 2024 9:22am Additional Source Comments (unrecognized sect ion and content) No Status Records FoundNo Status Records FoundNo Status Records Found INFORMATION SOURCE (unrecogn ized section and content) DATE CREATED AUTHOR 11/03/2017 [facility] DATE CREATED AUTHOR AUTHOR'S ORGANIZ ATION 02/11/2024 [facility] DATE CREATED AUTHOR AUTHOR'S ORGANIZ ATION 01/29/2025 [facility] Source Comments (unrecognize d section and content) In the event this informatio n is protected by the Federal Confidentiality of Alcohol and Drug Abuse Patient Records regulations: The Federal rules restrict any use of the information to criminally investigate or prosecute any alcohol or drug abuse patient.[facility] HospitalIn the event this information is protected by the Federal Confidentiality of Alcohol and Drug Abuse Patient Records regulations: The Federal rules restrict any use of the information to criminally investigate or prosecute any alcohol or drug abuse patient.[facility] Reason for Visit (unrecogniz ed section and content) Reason Comments Lump in the jaw Left lower jaw - X3 weeks - just below the ear radiating into the jaw. Reason Comments Ingrown Toenail X yesterday noticed possible ingrown toenail left foot, big toe Care Teams (unrecognized sec tion and content) Bung Sewer Relationship Specialty Start Date End Date Katie Em DO PCP - General Internal Medicine 10/11/16 Team Status: Active Member Role Status Dates Dr. Keesha Murcia MD Family Provider Active Dr. Kyle Lucero DO Primary Care Provider Active Team Status: Inactive Member Role Status Dates Dr. Kyle Lucero DO Primary Care Provider Active Dr. Aline Pickett DO Attending Provider Active Bung Sewer Relationship Specialty Start Date End Date Katie Em DO PCP - General Internal Medicine 10/11/16 Bung Sewer Relationship Specialty Start Date End Date Keesha Murcia MD [address] [place] [address] [address] [place] [address] PCP - General Internal Medicine 07/24/14 Keesha Murcia MD [address] [place] [address] [address] [place] [address] Internal Medicine 07/24/14 Team Status: Active Member Role/Relationship Status Dates Dr. Keesha Murcia MD Family Provider Active Dr. Kyle Lucero DO Primary Care Provider Active Team Status: Inactive Member Role/Relationship Status Dates Dr. Kyle Lucero DO Primary Care Provider Active Start: October 02, 2024 End: October 02, 2024 Dr. Kyle Lucero DO Attending Provider Active Start: October 02, 2024 End: October 02, 2024 Team Status: Active Member Role/Relationship Status Dates Dr. Kyle Lucero DO Primary Care Provider Active Team Status: Active Member Role/Relationship Status Dates Dr. Kyle Lucero DO Primary Care Provider Active Start: October 23, 2024 Dr. Kyle Lucero DO Referring Provider Active Start: October 23, 2024 Dr. Manpreet Joshi MD Attending Provider Active Start: October 23, 2024 Dr. Manpreet Joshi MD Other Provider Active Star t: October 23, 2024 Team Status: Inactive Member Role/Relationship Status Dates Dr. Kyle Lucero DO Primary Care Provider Active Start: October 29, 2024 End: November 01, 2024 Dr. Kyle Lucero DO Referring Provider Active Start: October 29, 2024 End: November 01, 2024 Dr. Manpreet Joshi MD Attending Provider Active Start: October 29, 2024 End: November 01, 2024 Team Status: Active Member Role/Relationship Status Dates Dr. Kyle Lucero DO Primary Care Provider Active Start: October 29, 2024 Dr. Kyle Lucero DO Referring Provider Active Start: October 29, 2024 Dr. Manpreet Joshi MD Attending Provider Active Start: October 29, 2024 Dr. Manpreet Joshi MD Other Provider Active Star t: October 29, 2024 Team Status: Active Member Role/Relationship Status Dates Dr. Kyle Lucero DO Primary Care Provider Active Start: October 22, 2024 Dr. Kyle Lucero DO Referring Provider Active Start: October 22, 2024 Dr. Manpreet Joshi MD Attending Provider Active Start: October 22, 2024 Dr. Manpreet Joshi MD Other Provider Active Star t: October 22, 2024 Team Status: Active Member Role/Relationship Status Dates Dr. Kyle Lucero DO Primary Care Provider Active Start: November 12, 2024 Dr. Kyle Lucero DO Referring Provider Active Start: November 12, 2024 Dr. Manpreet Joshi MD Attending Provider Active Start: November 12, 2024 Dr. Manpreet Joshi MD Other Provider Active Star t: November 12, 2024 Team Status: Inactive Member Role/Relationship Status Dates Dr. Kyle Lucero DO Primary Care Provider Active Start: November 26, 2024 End: December 02, 2024 Dr. Kyle Lucero DO Referring Provider Active Start: November 26, 2024 End: December 02, 2024 Dr. Manpreet Joshi MD Attending Provider Active Start: November 26, 2024 End: December 02, 2024 Dr. Manpreet Joshi MD Other Provider Active Star t: November 26, 2024 Team Status: Active Member Role/Relationship Status Dates Dr. Kyle Lucero DO Primary care physician Active Team Status: Inactive Member Role/Relationship Status Dates Dr. Kyle Lucero DO Primary care physician Active Start: October 02, 2024 End: October 02, 2024 Dr. Kyle Lucero DO Attending physician Active Start: October 02, 2024 End: October 02, 2024 Team Status: Active Member Role/Relationship Status Dates Dr. Kyle Lucero DO Primary care physician Active Start: October 22, 2024 Dr. Kyle Lucero DO Referring Provider Active Start: October 22, 2024 Dr. Manpreet Joshi MD Attending physician Active Start: October 22, 2024 Dr. Manpreet Joshi MD Nurse Practitioner Active Start: October 22, 2024 Team Status: Inactive Member Role/Relationship Status Dates Dr. Kyle Lucero DO Primary care physician Active Start: October 29, 2024 End: November 01, 2024 Dr. Kyle Lucero DO Referring Provider Active Start: October 29, 2024 End: November 01, 2024 Dr. Manpreet Joshi MD Attending physician Active Start: October 29, 2024 End: November 01, 2024 Team Status: Active Member Role/Relationship Status Dates Dr. Kyle Lucero DO Primary care physician Active Start: October 29, 2024 Dr. Manpreet Joshi MD Attending physician Active Start: October 29, 2024 Dr. Manpreet Joshi MD Referring Provider Active Start: October 29, 2024 Dr. Manpreet Joshi MD Nurse Practitioner Active Start: October 29, 2024 Team Status: Active Member Role/Relationship Status Dates Dr. Kyle Lucero DO Primary care physician Active Start: November 12, 2024 Dr. Manpreet Joshi MD Attending physician Active Start: November 12, 2024 Dr. Manpreet Joshi MD Referring Provider Active Start: November 12, 2024 Dr. Manpreet Joshi MD Nurse Practitioner Active Start: November 12, 2024 Team Status: Inactive Member Role/Relationship Status Dates Dr. Kyle Lucero DO Primary care physician Active Start: November 26, 2024 End: December 02, 2024 Dr. Kyle Lucero DO Referring Provider Active Start: November 26, 2024 End: December 02, 2024 Dr. Manpreet Joshi MD Attending physician Active Start: November 26, 2024 End: December 02, 2024 Dr. Manpreet Joshi MD Nurse Practitioner Active Start: November 26, 2024 Team Status: Inactive Member Role/Relationship Status Dates Dr. Kyle Lucero DO Primary care physician Active Start: December 10, 2024 End: January 01, 2025 Dr. Kyle Lucero DO Referring Provider Active Start: December 10, 2024 End: January 01, 2025 Dr. Manpreet Joshi MD Attending physician Active Start: December 10, 2024 End: January 01, 2025 Team Status: Active Member Role/Relationship Status Dates Dr. Kyle Lucero DO Primary care physician Active Start: December 11, 2024 Dr. Kyle Lucero DO Referring Provider Active Start: December 11, 2024 Dr. Manpreet Joshi MD Attending physician Active Start: December 11, 2024 Dr. Manpreet Joshi MD Nurse Practitioner Active Start: December 11, 2024 Goals (unrecognized section and content) Goals may be documented in a n alternate sectionGoals may be documented in an alternate sectionGoals may be documented in an alternate sectionGoals may be documented in an alternate sectionGoals may be documented in an alternate section FOR RECORDS PERTAINING TO PATIENTS WHO ARE OR HAVE BEEN ENROLLED IN A CHEMICAL DEPENDENCY/SUBSTANCEABUSE PROGRAM, SOME INFORMATION MAY BE OMITTED. This clinical summary was aggregated from multiple sources. Caution should be exercised in using it in the provision of clinical care. This summary normalizes information from multiple sources, and as a consequence, information in this document may materially change the coding, format and clinical context of patient data. In addition, data may be omitted in some cases. CLINICAL DECISIONS SHOULD BE BASED ON THE PRIMARY CLINICAL RECORDS. [facility] [employer] [facility] provides no warranty or guarantee of the accuracy or completeness of information in this document.
[2025-03-18 12:49] LABS: Cholesterol 196 mg/dL (<=200); Low Density Lipoprotein Calc. 99 mg/dL; PSA,Total - Annual Screen 0.60 ng/mL (0.02-4.00); Triglycerides 374 mg/dL; Very Low Density Lipoprotein 75 mg/dL (5-40); Vitamin D,25 Hydroxy 25.6 ng/mL (30-100); cholesterol:hdl ratio screen 5.87
[2025-03-18 12:52] LABS: Creatinine, Urine (random) 47.90 mg/dL (39.00-259.00); Microalbumin,Random Urine 27.2 mg/L (<20 mg/L)
[2025-03-18 13:10] LABS: AST(SGOT) 16 U/L (<=37); Alanine Aminotransfer ALT/SGPT 22 U/L (<=46); Albumin, Serum 4.5 g/dL (3.4-4.8); Alkaline Phosphatase 70 U/L (40-129); Anion Gap 11 (5-15); BUN 16 mg/dL (4-19); BUN/Creat Ratio 15.9 RATIO (10-20); Calcium,Total 9.7 mg/dL (7.6-11.0); Carbon Dioxide 25.1 mmol/L (21.0-32.0); Chloride 97 mmol/L (98-108); Globulin 3.2 g/dL (2.2-4.2); Glucose 465 mg/dL (70-99); Potassium 4.9 mmol/L (3.3-5.1)
== END 2025-03-18 23:59 | disposition home or self-care (01) ==
LOC: BFHLAB 10:04
PROVIDERS: Nurse Practitioner Family; PCP Family Medicine; Visit Provider Family Medicine
DX: E11.65 Type 2 diabetes mellitus with hyperglycemia (principal); Z12.5 Encounter for screening for malignant neoplasm of prostate
CPT/HCPCS: 36415; 80053; 80061; 82043; 82306; 82570; 84153; 84443; 85025; G0103